=== PATIENT | female | born 1930 | race Caucasian/White ===

== ENCOUNTER 2017-09-21 07:03 | Emergency (ER) | payer MEDICARE, OTHER ==
--- NOTE | 2017-09-21 07:31 | ED Physician Documentation ---
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 denies: Back pain Neurologic: reports: Headache, Head injury. 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 - Present Medications Home Medications: Ambulatory Orders Medication Instructions Recorded Confirmed No Known Home Medications [No 09/21/17 09/21/17 Known Home Medications] - Allergies Allergies/Adverse Reactions: Allergies Allergy/AdvReac Type Severity Reaction Status Date / Time No Known Drug Allergies Allergy Verified 09/21/17 07:16 - Social History Does the pt smoke?: No Smoking Status: Never smoker Does the pt drink ETOH?: No Does the pt have substance abuse?: No - Immunizations Immunizations are current?: No Immunizations: No immun PD ED PE NORMAL - Vitals Vital signs reviewed: Yes - General General: Alert and oriented X 3 - HEENT HEENT: Atraumatic (no visible swelling bruising or lac at site pt indicates), PERRL - Neck Neck: Supple, no meningeal sign - Cardiac Cardiac: RRR - Respiratory Respiratory: No respiratory distress, Clear bilaterally - Abdomen Abdomen: Soft, Non tender - Derm Derm: Other (skin tear L hand) - Extremities Extremities: Other (skin tear dorsum L hand, TTP and bruising dorsum L hand, swelling dorsum L wrist, MSV intact, had pt remove ring) - Neuro Neuro: Alert and oriented X 3, manager of selection and assessment 2-12 intact, No motor deficit, No sensory deficit, Normal speech Eye Opening: Spontaneous Motor: Obeys Commands Verbal: Oriented GCS Score: 15 Results - Vitals Vitals: Vital Signs - 24 hr 09/21/17 07:11 Temperature 36.8 C Heart Rate 74 Respiratory 16 Rate Blood Pressure 141/86 H O2 Saturation 97 Oxygen O2 Source Room air - Rads (name of study) hand wrist Radiology: See rad report (small bony density dorsal to lunate c/w small avulsion) PD MEDICAL DECISION MAKING - ED course ED course: pt received a MSE to the extent that she would agree too she declined CTH and CS - (based on her exam I have a low suspicion for ICH or neck fx - but given her age would have been prudent to rule out subdural 2/2 bridging veins ect, and given distracting wrist injury would have rec CT CS ) she also declined tdap her xrays showed a small avulsion fx opted for velcro splint o allow access for wound care her wounds were clenaed and dressed a velcro wrist splint was applied pt was road tested and ambulatory in the ER (walked from triage to room 1 unassisted) - Sepsis Event Vital Signs: Vital Signs - 24 hr 09/21/17 07:11 Temperature 36.8 C Heart Rate 74 Respiratory 16 Rate Blood Pressure 141/86 H O2 Saturation 97 Oxygen O2 Source Room air Departure - Departure Clinical Impression: Skin tear Fall from slip, trip, or stumble Qualifiers: Encounter type: initial encounter Qualified Code(s): W01.0XXA - Fall on same level from slipping, tripping and stumbling without subsequent striking against object, initial encounter Head injury Qualifiers: Encounter type: initial encounter Qualified Code(s): S09.90XA - Unspecified injury of head, initial encounter Neck sprain Qualifiers: Encounter type: initial encounter Qualified Code(s): S13.9XXA - Sprain of joints and ligaments of unspecified parts of neck, initial encounter Hand contusion Qualifiers: Encounter type: initial encounter Laterality: left Qualified Code(s): S60.222A - Contusion of left hand, initial encounter Wrist fracture Qualifiers: Encounter type: initial encounter Fracture type: closed Laterality: left Qualified Code(s): S62.102A - Fracture of unspecified carpal bone, left wrist, initial encounter for closed fracture Condition: Good Instructions: ED Contusion Hand, ED Head Injury Closed Sleep Mon, ED Sprain Strain Neck, ED Avulsion Dermal, ED Splint Care Velcro, ED Fx Wrist General Follow-Up: Frank Melvin MD [Primary Care Provider] - [facility] [Provider Group] Comments: Your xrays show a small avulsion fracture to the left wrsit Wear the splint at all times except to care for the wound Tylenol available over the counter for pain Ice for 20 minutes at a time and elevation to decrease the swelling Follow up with orthopedics - you need to call to schedule Gently wash the wound and apply antibiotic ointment twice a day until healed See your PMD or return to the ED for any signs of developing infection I recommend a CT scan of your head to rule out any bleeding form the fall and a CT scan of your neck to rule out any bony injuries to the spine - but you declined theses tests for now - please carefully read the head innjury precautions and stay with a responsibel adult who can watch over you for the next 48 hr and return to the ER of worse You also declined a tetanus booster shot - of you change your mind about this, please see your PMD in the next 48-72 hr to get this taken care of
--- NOTE | 2017-09-21 08:20 | XRAY Report ---
Procedure Date: 09/21/2017 Accession Number: [id number] / [id number] Procedure: XR - Hand 3 View LT CPT Code: FULL RESULT: EXAM: LEFT HAND RADIOGRAPHY EXAM DATE: 09/21/2017 07:33 AM. CLINICAL HISTORY: Fall pain and bruise. COMPARISON: None. TECHNIQUE: 3 views. FINDINGS: Bones: Small bony fragment dorsal to the lunate on lateral view. Joints: Osteophyte versus metacarpal carpal joint space. Osteophyte fourth DIP joint. Soft Tissues: soft tissue swelling. IMPRESSION: Small bony fragment dorsal to the lunate could be small avulsion versus loose body RADIA
--- NOTE | 2017-09-21 08:20 | XRAY Report ---
Procedure Date: 09/21/2017 Accession Number: [id number] / [id number] Procedure: XR - Wrist 4 View LT CPT Code: FULL RESULT: EXAM: LEFT WRIST RADIOGRAPHY EXAM DATE: 09/21/2017 07:33 AM. CLINICAL HISTORY: Fall pain and bruise. COMPARISON: None. TECHNIQUE: 4 views. FINDINGS: Bones: Small bony density dorsal to the lunate on lateral view loose body versus avulsion. Joints: Osteophyte, joint space narrowing first metacarpal carpal joint space Soft Tissues: soft tissue swelling. IMPRESSION: Small bony density dorsal to the lunate on lateral view loose body versus avulsion. RADIA
[2017-09-21 08:38] VITALS: BP 156/81
== END 2017-09-21 08:32 | disposition home or self-care (01) ==
LOC: ED 07:03
DX: S62.122A Displaced fracture of lunate [semilunar], left wrist, initial encounter for closed fracture (principal); S09.90XA Unspecified injury of head, initial encounter; S13.9XXA Sprain of joints and ligaments of unspecified parts of neck, initial encounter; S61.412A Laceration without foreign body of left hand, initial encounter; W01.0XXA Fall on same level from slipping, tripping and stumbling without subsequent striking against object, initial encounter
CPT/HCPCS: 70450; 72125; 99283

== ENCOUNTER 2018-12-22 10:34 | Outpatient (CLI) | payer MEDICARE, OTHER ==
[2018-12-22 10:51] LABS: BASOPHILS # (AUTO) 0.1 10^3/uL (0.0-0.1); BASOPHILS % (AUTO) 0.5 %; EOSINOPHILS # (AUTO) 0.3 10^3/uL (0.0-0.7); EOSINOPHILS % (AUTO) 3.3 %; HGB - HEMOGLOBIN 13.2 g/dL (12.0-16.0); LYMPHOCYTES # (AUTO) 2.7 10^3/uL (1.5-3.5); LYMPHOCYTES % (AUTO) 28.6 %; MEAN CORPUSCULAR HEMOGLOBIN 28.1 pg (27.0-31.0); MEAN CORPUSCULAR VOLUME 90.6 fL (81.0-99.0); MEAN PLATELET VOLUME 11.6 fL (7.9-10.8); MONOCYTES # (AUTO) 0.6 10^3/uL (0.0-1.0); MONOCYTES % (AUTO) 6.2 %; NEUTROPHILS # (AUTO) 5.7 10^3/uL (1.5-6.6); PLT - PLATELET COUNT 200 10^3/uL (130-450); RED CELL DISTRIBUTION WIDTH 14.2 % (12.0-15.0); WHITE BLOOD COUNT 9.3 x10^3/uL (4.8-10.8)
[2018-12-22 11:07] LABS: ALBUMIN 3.9 g/dL (3.2-5.5); ALBUMIN/GLOBULIN RATIO 1.2 (1.0-2.2); CALCIUM 11.2 mg/dL (8.5-10.3); TOTAL PROTEIN 7.2 g/dL (6.7-8.2)
[2018-12-22 11:24] LABS: THYROID STIMULATING HORMONE 4.38 uIU/mL (0.34-5.60)
[2018-12-22 11:26] LABS: FREE T4 (FREE THYROXINE) 0.94 ng/dL (0.58-1.64)
== END 2018-12-22 10:35 | disposition home or self-care (01) ==
LOC: LAB 10:34
PROVIDERS: ATTEND Family Medicine
DX: M41.9 Scoliosis, unspecified (principal); R09.89 Other specified symptoms and signs involving the circulatory and respiratory systems; R60.9 Edema, unspecified; I48.91 Unspecified atrial fibrillation
CPT/HCPCS: 36415; 80053; 84439; 84443; 84481; 85025

== ENCOUNTER 2018-12-22 10:43 | Outpatient (CLI) | payer MEDICARE, OTHER ==
--- NOTE | 2018-12-22 11:58 | XRAY Report ---
Reason: KYPHOSCOLIOSIS,DEGENERATIVE, COARSE RESPIRATORY CR Procedure Date: 12/22/2018 Accession Number: [id number] / [id number] Procedure: XR - Chest 2 View X-Ray CPT Code: 93873 FULL RESULT: EXAM: CHEST RADIOGRAPHY EXAM DATE: 12/22/2018 11:22 AM. CLINICAL HISTORY: Kyphoscoliosis, degenerative, coarse respiratory crackles. COMPARISON: None. TECHNIQUE: 2 views. FINDINGS: Lungs/Pleura: There are coarse interstitial lung markings bilaterally left greater than right. No lobar consolidation or overt pulmonary edema. Blunting of costophrenic angles bilaterally suggests small pleural effusions. No pneumothorax. Mediastinum: Heart and mediastinal contours are unremarkable. Other: None. IMPRESSION: Coarse pulmonary markings suggestive of chronic lung disease. Atypical pneumonia would be difficult to exclude in this setting. RADIA
== END 2018-12-22 10:44 | disposition home or self-care (01) ==
LOC: DI 10:43
PROVIDERS: ATTEND Family Medicine
DX: R91.8 Other nonspecific abnormal finding of lung field (principal); M41.9 Scoliosis, unspecified; R09.89 Other specified symptoms and signs involving the circulatory and respiratory systems; R60.9 Edema, unspecified; I48.91 Unspecified atrial fibrillation
CPT/HCPCS: 36415; 71046; 80053; 84439; 84443; 84481; 85025

== ENCOUNTER 2018-12-23 11:26 | Outpatient (CLI) | payer MEDICARE, OTHER | END 2018-12-23 11:27 | disposition home or self-care (01) | LOC: DI 11:26 | PROVIDERS: ATTEND Family Medicine | DX: R09.89 Other specified symptoms and signs involving the circulatory and respiratory systems (principal); R60.9 Edema, unspecified; I48.91 Unspecified atrial fibrillation; I27.20 Pulmonary hypertension, unspecified; I08.1 Rheumatic disorders of both mitral and tricuspid valves | CPT/HCPCS: 93306 ==

== ENCOUNTER 2019-04-30 18:07 | Outpatient (CLI) | payer MEDICARE, OTHER | END 2019-04-30 18:08 | disposition critical access hospital (66) | LOC: EMS 18:07 | PROVIDERS: ATTEND Surgery | DX: R55 Syncope and collapse (principal); R42 Dizziness and giddiness; S09.90XA Unspecified injury of head, initial encounter; W18.11XA Fall from or off toilet without subsequent striking against object, initial encounter; Y92.002 Bathroom of unspecified non-institutional (private) residence as the place of occurrence of the external cause; Z91.81 History of falling | CPT/HCPCS: A0425; A0429 ==

== ENCOUNTER 2019-04-30 18:09 | Inpatient (IN) | payer MEDICARE, OTHER ==
[2019-04-30 18:39] LABS: BILIRUBIN,URINE NEGATIVE (NEGATIVE); GLUCOSE, URINE (UA) NEGATIVE (NEGATIVE); KETONES,URINE (UA) NEGATIVE (NEGATIVE); LEUKOCYTE ESTERASE, URINE LARGE (NEGATIVE); NITRITE,URINE POSITIVE (NEGATIVE); OCCULT BLOOD,URINE LARGE (NEGATIVE); PROTEIN,URINE 100 mg/dL (NEGATIVE); UROBILINOGEN,URINE 0.2 (NORMAL) E.U./dL (NORMAL)
[2019-04-30 18:42] LABS: CLARITY,URINE CLOUDY (CLEAR)
[2019-04-30 18:53] LABS: BACTERIA,URINE Moderate /HPF (None Seen); SQUAMOUS EPITHELIAL CELL,UR RARE Squamous (<= Few); WBC CLUMPS,URINE PRESENT
[2019-04-30] MEDS ORDERED: cefTRIAXone 2 GM in SODIUM CHLORIDE 0.9% MINIBAG 100 ML IV STA (19:00)
[2019-04-30 19:16] LABS: BASOPHILS % (AUTO) 0.3 %; EOSINOPHILS % (AUTO) 0.2 %; HGB - HEMOGLOBIN 13.4 g/dL (12.0-16.0); LYMPHOCYTES # (AUTO) 1.6 10^3/uL (1.5-3.5); LYMPHOCYTES % (AUTO) 13.9 %; MEAN CORPUSCULAR HEMOGLOBIN 28.2 pg (27.0-31.0); MEAN CORPUSCULAR HGB CONC 31.6 g/dL (32.0-36.0); MEAN CORPUSCULAR VOLUME 89.3 fL (81.0-99.0); MEAN PLATELET VOLUME 12.3 fL (7.9-10.8); MONOCYTES # (AUTO) 0.9 10^3/uL (0.0-1.0); MONOCYTES % (AUTO) 7.3 %; NEUTROPHILS # (AUTO) 9.1 10^3/uL (1.5-6.6); NEUTROPHILS % (AUTO) 77.9 %; PLT - PLATELET COUNT 176 10^3/uL (130-450); RED BLOOD COUNT 4.75 10^6/uL (4.20-5.40); WHITE BLOOD COUNT 11.6 x10^3/uL (4.8-10.8)
[2019-04-30 19:20] LABS: INR 1.3 (0.8-1.2); PT - PROTHROMBIN TIME 14.1 secs (9.9-12.6)
--- NOTE | 2019-04-30 19:20 | ED Physician Documentation ---
History of Present Illness - Stated complaint Stated Complaint: GLF - RT CATHOLIC HEMATOMA - Chief complaint Chief Complaint: General - History obtained from History obtained from: Patient - History of Present Illness Timing: Prior to arrival Pain level max: 5 Pain level now: 5 - Additonal information Additional information: 88 year old female presents to the emergency department with multiple falls. A friend called to check on her but she did not answer her phone. Police was notified. She was found on the floor and when EMS arrived, she said that she needed lift assistance to bathroom. When the patient got up to the bathroom, patient fell again. She was placed on full spinal immobilization. Patient was alert to self, place but not time. She thought this year was 2001 and was not sure why she was brought to the emergency department. She reported of low back back. She denies any chest pain, shortness of breath, nausea or vomiting. Patient reported that she was laying on the floor since 7 am this morning. History was limited due to her confusion. Unclear if she takes anti-coagulant. Review of record in 2018 showed that she was not on anti-coagulant. Unclear of patient's past medical history. Review of Systems Constitutional: denies: Fever, Chills Ears: denies: Loss of hearing, Ear pain Nose: denies: Rhinorrhea / runny nose Cardiac: denies: Chest pain / pressure Respiratory: denies: Dyspnea, Cough : reports: Dysuria, Frequency Skin: denies: Rash, Lesions Musculoskeletal: reports: Back pain. denies: Neck pain, Extremity pain, Joint pain Neurologic: reports: Generalized weakness, Confused, Head injury. 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 - Present Medications Home Medications: Ambulatory Orders Medication Instructions Recorded Confirmed No Known Home Medications 09/21/17 09/21/17 - Allergies Allergies/Adverse Reactions: Allergies Allergy/AdvReac Type Severity Reaction Status Date / Time No Known Drug Allergies Allergy Verified 09/21/17 07:16 - Social History Does the pt smoke?: No Smoking Status: Never smoker Does the pt drink ETOH?: No Does the pt have substance abuse?: No - Immunizations Immunizations are current?: No Immunizations: No immun PD ED PE NORMAL - Vitals Vital signs reviewed: Yes - General General: Other (alert and oriented x 2) - HEENT HEENT: PERRL, EOMI, Other (right baptism scalp hematoma. wears glasses) - Neck Neck: Other (c-collar in place) - Cardiac Cardiac: Other (irregularly irregular) - Respiratory Respiratory: No respiratory distress - Abdomen Abdomen: Normal bowel sounds - Back Back: No CVA TTP, Other (mild mid lumbar tenderness to percussion. no step off) - Extremities Extremities: No deformity, No tenderness to palpate - Neuro Neuro: No motor deficit, No sensory deficit Results - Vitals Vitals: Vital Signs - 24 hr 04/30/19 04/30/19 04/30/19 18:20 18:26 21:52 Temperature 37.8 C H 37.8 C H Heart Rate 84 84 58 L Respiratory 18 18 18 Rate Blood Pressure 167/100 H 167/60 H 155/75 H O2 Saturation 99 99 100 Oxygen O2 Source Room air - EKG (time done) 1914 Rate: Rate (enter#), Other Rhythm: Atrial fibrillation [place]: LAD Intervals: RBBB (incomplete) Ischemia: Non specific changes - Labs Labs: Laboratory Tests 04/30/19 04/30/19 04/30/19 18:33 19:10 19:10 WBC 11.6 H RBC 4.75 Hgb 13.4 Hct 42.4 MCV 89.3 MCH 28.2 MCHC 31.6 L RDW 14.0 Plt Count 176 MPV 12.3 H Neut # (Auto) 9.1 H Lymph # (Auto) 1.6 Christian # (Auto) 0.9 Eos # (Auto) 0.0 Baso # (Auto) 0.0 Absolute Nucleated RBC 0.00 Nucleated RBC % 0.0 PT 14.1 H INR 1.3 H Sodium Potassium Chloride Carbon Dioxide Anion Gap BUN Creatinine Estimated GFR (MDRD) Glucose Calcium Magnesium Total Bilirubin AST ALT Alkaline Phosphatase Total Creatine Kinase Troponin I High Sens Total Protein Albumin Globulin Albumin/Globulin Ratio Lipase Urine Color YELLOW Urine Clarity CLOUDY Urine pH 7.0 Ur Specific [place] 1.025 Urine Protein 100 H Urine Glucose (UA) NEGATIVE Urine Ketones NEGATIVE Urine Occult Blood LARGE H Urine Nitrite POSITIVE H Urine Bilirubin NEGATIVE Urine Urobilinogen 0.2 (NORMAL) Ur Leukocyte Esterase LARGE H Urine RBC 11-25 H Urine WBC >25 H Urine WBC Clumps PRESENT Ur Squamous Epith Cells RARE Squamous Urine Bacteria Moderate H Ur Microscopic Review INDICATED Urine Culture Comments INDICATED 04/30/19 04/30/19 04/30/19 19:10 19:10 19:10 WBC RBC Hgb Hct MCV MCH MCHC RDW Plt Count MPV Neut # (Auto) Lymph # (Auto) Christian # (Auto) Eos # (Auto) Baso # (Auto) Absolute Nucleated RBC Nucleated RBC % PT INR Sodium 138 Potassium 4.1 Chloride 103 Carbon Dioxide 24 Anion Gap 11.0 BUN 18 Creatinine 1.0 Estimated GFR (MDRD) 52 L Glucose 113 H Calcium 10.0 Magnesium 1.7 Total Bilirubin 1.8 H AST 22 ALT 12 Alkaline Phosphatase 53 Total Creatine Kinase Troponin I High Sens 56.5 H* Total Protein 7.0 Albumin 3.7 Globulin 3.3 Albumin/Globulin Ratio 1.1 Lipase 24 Urine Color Urine Clarity Urine pH Ur Specific [place] Urine Protein Urine Glucose (UA) Urine Ketones Urine Occult Blood Urine Nitrite Urine Bilirubin Urine Urobilinogen Ur Leukocyte Esterase Urine RBC Urine WBC Urine WBC Clumps Ur Squamous Epith Cells Urine Bacteria Ur Microscopic Review Urine Culture Comments 04/30/19 04/30/19 19:10 20:35 WBC RBC Hgb Hct MCV MCH MCHC RDW Plt Count MPV Neut # (Auto) Lymph # (Auto) Christian # (Auto) Eos # (Auto) Baso # (Auto) Absolute Nucleated RBC Nucleated RBC % PT INR Sodium Potassium Chloride Carbon Dioxide Anion Gap BUN Creatinine Estimated GFR (MDRD) Glucose Calcium Magnesium Total Bilirubin AST ALT Alkaline Phosphatase Total Creatine Kinase 118 Troponin I High Sens 62.9 H* Total Protein Albumin Globulin Albumin/Globulin Ratio Lipase Urine Color Urine Clarity Urine pH Ur Specific [place] Urine Protein Urine Glucose (UA) Urine Ketones Urine Occult Blood Urine Nitrite Urine Bilirubin Urine Urobilinogen Ur Leukocyte Esterase Urine RBC Urine WBC Urine WBC Clumps Ur Squamous Epith Cells Urine Bacteria Ur Microscopic Review Urine Culture Comments PD MEDICAL DECISION MAKING - ED course ED course: 88-year-old female presented to the emergency department for evaluation because of frequent falls, urinary frequency or urgency. Patient report of low back pain. She told me that she has been laying on the floor since this morning because she was unable to get up. She has a right temporal hematoma. She also told me that she falls frequently as well. She lives at home by herself. Her has . Patient was alert to self and place but not time.CT scan of the head did not show intracranial hemorrhage or skull fracture.CT of lumbar spine did not show acute fracture and with Left perinephric stranding and left renal stone. Patient was found to have a urinary tract infection and was treated with IV Rocephin. CT of the abdomen pelvis without contrast was obtained to evaluate for obstructive uropathy. There was no evidence of an obstructive ureteral stone at this time. Patient could have passed a stone recently. Patient wished to go home but patient had fallen multiple times. Her generalized weakness and confusion could be due to her acute pyelonephritis although I was unable to contact any family members or friends to provide additional history. Patient is unsafe to be discharged at this time. EKG showed atrial fibrillation with nonspecific ST changes. Serial troponins were mildly elevated the patient denied any chest pain or shortness of breath. The elevated troponin could be due to demand ischemia from current infection. It is unknown to me whether patient has a history of atrial fibrillation. Clinically, she does not demonstrate evidence of congestive heart failure. Case was discussed with Dr. Tripp, hospitalist. She has accepted the patient for admission. 2030 C-collar was removed after CT cervical spine showed no acute fracture or dislocation and patient was feeling better after c-collar removal. She denies any neck pain. [id number] I attempted to contact Marla Fitch, listed as the emergency contact but number I called said a voicemail said it is no longer a working number. No other emergency contact numbers were listed. Patient lives by herself and is a . Departure - Departure Disposition: [facility] DC/Xfer Clinical Impression: Pyelonephritis, Confusion, Weakness, Atrial fibrillation Condition: Stable Discharge Date/Time: 04/30/19 22:40
[2019-04-30 19:28] LABS: ALBUMIN 3.7 g/dL (3.2-5.5); ALBUMIN/GLOBULIN RATIO 1.1 (1.0-2.2); BILIRUBIN,TOTAL 1.8 mg/dL (0.2-1.0)
--- NOTE | 2019-04-30 20:04 | XRAY Report ---
Reason: chest pain Procedure Date: 04/30/2019 Accession Number: [id number] / [id number] Procedure: XR - Chest 1 View X-Ray CPT Code: 16843 Final Report FULL RESULT: EXAM: CHEST RADIOGRAPHY EXAM DATE: 04/30/2019 07:56 PM. CLINICAL HISTORY: Chest pain. COMPARISON: CHEST 2 VIEW 12/22/2018 11:17 AM CERVICAL SPINE W/O 04/30/2019 7:23 PM. TECHNIQUE: 1 view. FINDINGS: Lungs/Pleura: There is diffuse reticulonodular opacity within the lungs. No definite evidence of acute infiltrate. No effusion. No pneumothorax. Mediastinum: There is cardiomegaly. There is thoracic aortic calcification. Other: None. IMPRESSION: 1. There is cardiomegaly. 2. There is diffuse reticulonodular opacity within the lungs. This is relatively stable and probably represents underlying interstitial lung disease. No clear evidence of acute infiltrate. 3. There is no pneumothorax. RADIA
--- NOTE | 2019-04-30 20:05 | XRAY Report ---
Reason: fall Procedure Date: 04/30/2019 Accession Number: [id number] / [id number] Procedure: XR - Pelvis 1 View CPT Code: Final Report FULL RESULT: EXAM: PELVIS RADIOGRAPHY EXAM DATE: 04/30/2019 07:56 PM. CLINICAL HISTORY: Fall. COMPARISON: LUMBAR SPINE W/O 04/30/2019 7:30 PM. TECHNIQUE: 1 view. FINDINGS: Bones: Normal. No fracture or bone lesion. Joints: The visualized hip, pubis symphysis, and sacroiliac joints are preserved. No subluxation. Soft Tissues: Normal. No soft tissue swelling. IMPRESSION: No evidence of fracture or dislocation. Plain film can be insensitive for detection of hip fracture in elderly patients. If there is concern for occult proximal femur fracture, MRI could be used for further evaluation. RADIA
--- NOTE | 2019-04-30 20:16 | CT Report ---
Reason: fall Procedure Date: 04/30/2019 Accession Number: [id number] / [id number] Procedure: CT - HEAD WO CPT Code: Final Report FULL RESULT: EXAM: CT HEAD EXAM DATE: 04/30/2019 07:42 PM. CLINICAL HISTORY: Fall. COMPARISON: HEAD W/O 10/12/2014 5:21 PM. TECHNIQUE: Multiaxial CT images were obtained from the foramen magnum to the vertex. Reformats: Sagittal and coronal. IV contrast: None. In accordance with CT protocol optimization, one or more of the following dose reduction techniques were utilized for this exam: automated exposure control, adjustment of mA and/or KV based on patient size, or use of iterative reconstructive technique. FINDINGS: Parenchyma: No intraparenchymal hemorrhage. No evidence of mass, midline shift, or CT findings of infarction. Glass-white differentiation is distinct. Decreased attenuation in the deep and periventricular white matter was present on the prior exam and is compatible with chronic microangiopathy. Extraaxial Spaces: Normal for age. No subdural or epidural collections identified. Ventricles: Normal in size and position. Sinuses and Orbits: Imaged paranasal sinuses, orbits, and mastoids show no significant abnormality. Bones: No evidence of fracture or calvarial defect. Other: Small hematomas in the right temporal scalp and along the vertex. IMPRESSION: No acute intracranial abnormality. Scalp hematomas, no skull fractures.. RADIA
--- NOTE | 2019-04-30 20:23 | CT Report ---
Reason: fall Procedure Date: 04/30/2019 Accession Number: [id number] / [id number] Procedure: CT - LUMBAR SPINE WO CPT Code: Final Report FULL RESULT: EXAM: CT LUMBAR SPINE WITHOUT CONTRAST EXAM DATE: 04/30/2019 07:44 PM. CLINICAL HISTORY: Fall. COMPARISONS: None. TECHNIQUE: Thin-section axial images were acquired of the lumbar spine from T12 to S1 without contrast. Post-processing: Coronal and sagittal reformats. Other: None. In accordance with CT protocol optimization, one or more of the following dose reduction techniques were utilized for this exam: automated exposure control, adjustment of mA and/or KV based on patient size, or use of iterative reconstructive technique. FINDINGS: Alignment: Mild dextrocurvature. No significant spondylolisthesis. Bones: Five [id number] lumbar vertebral bodies are present. No acute fractures. Right hemilaminectomy at L3-S1. Moderate to severe multilevel degenerative disk disease. No high-grade spinal canal narrowing. Moderate multilevel spinal canal narrowing from L2-S1 by posterior disk osteophyte complex. Other: Cholelithiasis. 6 mm left renal calculus. There is asymmetric left perinephric stranding and possible hydronephrosis. IMPRESSION: Asymmetric left perinephric stranding and probable hydronephrosis. Distal ureter is not imaged. Correlation with abdomen pelvis CT recommended to exclude distal obstruction. No calculi seen in the proximal to mid ureter. There is a 6 mm nonobstructing left renal calculus. No acute lumbar spine fractures. Cholelithiasis. RADIA
--- NOTE | 2019-04-30 20:25 | CT Report ---
Reason: fall Procedure Date: 04/30/2019 Accession Number: [id number] / [id number] Procedure: CT - CERVICAL SPINE WO CPT Code: Final Report FULL RESULT: EXAM: CT CERVICAL SPINE WITHOUT CONTRAST DATE: 04/30/2019 07:43 PM. HISTORY: Fall. COMPARISONS: HEAD W/O 10/12/2014 5:21 PM. TECHNIQUE: Thin-section axial images were acquired of the cervical spine without contrast. Post-processing: Coronal and sagittal reformats. Other: None. In accordance with CT protocol optimization, one or more of the following dose reduction techniques were utilized for this exam: automated exposure control, adjustment of mA and/or KV based on patient size, or use of iterative reconstructive technique. FINDINGS: Alignment: No scoliosis or spondylolisthesis. Bones: No acute fractures. Interspace Levels/Facets: C1-C2: Mild arthropathy. C2-C3: Unremarkable. C3-C4: Focal central disk protrusion measuring up to 5 mm, unknown age. Likely indenting the anterior thecal sac. No neural foraminal stenosis. Mild to moderate bilateral facet disease. C4-C5: Mild disk height loss. Moderate to severe right neural foraminal stenosis and mild to moderate left neural foraminal stenosis. Facet arthropathy. C5-C6: Moderate disk height loss. Posterior disk osteophyte complex. Minimal central canal stenosis. Moderate to severe bilateral neural foraminal stenosis, left more than right, with facet disease. C6-C7: Mild central focal disk protrusion. C7-T1: Unremarkable. Musculature: Mild fatty atrophy. Other: No prevertebral soft tissue swelling. There is some dependent mucus or secretions in the oropharynx, hypopharynx, and in the vallecula. Chronic appearing reticulation in the apices. IMPRESSION: 1. No fracture or subluxation of the cervical spine. 2. Focal central disk protrusions at C3-C4 and C6-C7. 3. Dependent mucus or secretions in the airway as above. RADIA
--- NOTE | 2019-04-30 21:28 | CT Report ---
Reason: ?obstructive stone vs pyelonephritis Procedure Date: 04/30/2019 Accession Number: [id number] / [id number] Procedure: CT - Abdomen/Pelvis WO CPT Code: Final Report FULL RESULT: EXAM: CT ABDOMEN AND PELVIS (CT KUB) EXAM DATE: 04/30/2019 09:06 PM. CLINICAL HISTORY: Fall tonight. Frequent troublesome urination. Back pain. Question obstructive stone versus pyelonephritis. COMPARISONS: CHEST 1 VIEW 04/30/2019 7:23 PM. CHEST 2 VIEW 12/22/2018 11:17 AM. TECHNIQUE: Routine axial helical CT imaging was performed through the abdomen and pelvis without IV contrast. Reconstructions: Coronal and sagittal. In accordance with CT protocol optimization, one or more of the following dose reduction techniques were utilized for this exam: automated exposure control, adjustment of mA and/or KV based on patient size, or use of iterative reconstructive technique. FINDINGS: Lung bases: Moderate bilateral lower lobe reticular and alveolar opacities. Honeycombing fibrosis could be present in the left lower lobe. Bilateral pulmonary edema and/or pneumonia can be present superimposed on chronic lung disease. Mild reticular opacities right middle lobe. Liver: Unremarkable. Gallbladder: Multiple moderate-sized gallstones. Bile ducts: Unremarkable. Pancreas: Moderate pancreatic atrophy. Spleen: Unremarkable. Adrenals: Unremarkable. Kidneys: Mild left hydronephrosis with adjacent stranding and perinephric stranding. Left proximal hydroureter with adjacent stranding. A couple of left lower pole renal calculi, largest measuring 4 mm, nonobstructing. Right kidney appears unremarkable. Bowel: Moderate to severe sigmoid diverticulosis. Mild descending colon diverticulosis. Normal appendix. No dilated bowel loops are seen. Pelvis: Bladder wall thickening and adjacent stranding concerning for acute cystitis. No bladder calculi. Status post hysterectomy. Vasculature: No acute findings. Bones: No acute bone findings. Metallic surgical clips in the left groin. IMPRESSION: 1. Moderate bilateral lower lobe reticular and alveolar opacities. Honeycombing fibrosis could be present in the left lower lobe. Bilateral pulmonary edema and/or pneumonia can be present superimposed on chronic lung disease. Mild reticular opacities right middle lobe. 2. Cholelithiasis. 3. Mild left hydronephrosis with adjacent stranding and perinephric stranding. Left proximal hydroureter with adjacent stranding. A couple of left lower pole renal calculi, largest measuring 4 mm, nonobstructing. Acute left pyelonephritis could be present. There could be a recently passed calculus. 4. Acute cystitis. 5. Left-sided colonic diverticulosis. 6. See above. RADIA
[2019-04-30] MEDS ORDERED: SODIUM CHLORIDE FLUSH 0.9% 10 ML SYRINGE IVP PRN (22:07)
[2019-04-30] MEDS ORDERED: ONDANSETRON 4 MG/2 ML VIAL IVP PRN (22:07)
[2019-04-30] MEDS ORDERED: ONDANSETRON ODT 4 MG TABLET TL PRN (22:07)
[2019-04-30] MEDS ORDERED: ACETAMINOPHEN 325 MG TABLET PO PRN (22:07)
[2019-04-30] MEDS ORDERED: oxyCODONE 5 MG TABLET PO PRN (22:07)
[2019-04-30] MEDS: LACTATED RINGERS 1,000 ML IV SCH (23:03)
--- NOTE | 2019-04-30 23:32 | HISTORY & PHYSICAL EXAMINATION ---
Chief Complaint - Chief Complaint Chief Complaint: Found down on floor in her home by EMS, and fell again when put on toilet History of Present Illness - Admitted From Admitted From:: Home/ER - History Obtained From Records Reviewed: [facility] and centricity History obtained from: Emergency room physician and [facility] Exam Limitations: Patient has mild to moderate confusion with memory loss - History of Present Illness HPI Comment/Other: She is an 88-year-old female who is a sketchy historian because of lack of memory and confusion. History is obtained primarily from the medical record and the ER physician. Her has been recently and she is now living alone. At least that is what she told EMS and the emergency room physician. But in reviewing the medical record her has been since approximately 2004. A friend called to check up on her but received no phone call so she called the police and the police sent a safety check. She was found down on her floor when EMS arrived. She thinks she had been laying on the floor since 7 AM. She told them that she needed lift assistance to the bathroom and when she got up to go to the bathroom she fell again. She was placed in full spinal immobilization and brought to the emergency room. She was complaining of low back pain, and thought it was the year 2001. She was evaluated by Dr. Corral. She was noted to be in atrial fibrillation, blood pressure 167/100. 99% saturation on room air. Respirations 18 and temperature 37.8. Heart rate was 84. He found her to be alert and oriented x2. She had a right jew scalp hematoma and was wearing glasses with c-collar in place. She had an irregularly irregular heartbeat. Mild mid lumbar tenderness to percussion but no step-off. No motor or sensory deficit. White cell count was 11.6 thousand. INR was 1.3. Electrolytes showed a magnesium of 1.7, troponin 56.5, CPK 118, and urinalysis had proteinuria, a large amount of occult blood, positive nitrites, positive leukocyte esterase, hematuria, pyuria, moderate bacteria, and rare squamous cells. Abdomen/pelvis CT had moderate bilateral lower lobe reticular and alveolar opacities compatible with her history of pulmonary fibrosis and pulmonary hypertension. She had asymptomatic cholelithiasis. Mild left hydronephrosis with adjacent stranding and perinephric stranding. Left proximal hydroureter with adjacent stranding. A couple of left lower pole renal calculi that were nonobstructing. She was felt to have possible acute pyelonephritis. As well as a possibly passed calculus. I did asked Dr. Corral to contact family to make sure they were amenable to her being admitted to this facility. Her troponins are concerning and I wanted to make sure they did not want full cardiology intervention and evaluation. [facility], there is no one available in the emergency contact list. The patient could not tell us who to contact. She is now admitted for pyelonephritis. History - Past Medical History Cardiovascular: reports: Hypertension, Atrial fibrillation (Found November 2018 when she presented as dizziness, falls, leg edema. EKG and echocardiogram recommended but she declined any additional treatment. She changed her mind a month later and allowed her PCP to do an echo and a chest x-ray. December 2018 echocardiogram shows normal LV cavity size with mild concentric left ventricular hypertrophy. Ejection fraction 60 to 65%. No regional wall motion abnormalities. Severe biatrial dilation. Mild to moderate mitral regurgitation and mild tricuspid regurgitation. Severe pulmonary hypertension with estimated RVSP 70 mmHg and RA pressure of 15 mmHg.Septal dropout present and suggestive of an ASD. She declined treatment of this. ) Respiratory: reports: Other (Pulmonary hypertension on echocardiogram December 2018. Chest x-ray done at that time shows coarse pulmonary markings suggestive of chronic lung disease.) Neuro: reports: Other ("Funny feeling in her ears, then falls where she gets back up. Seen by PCP for this November 2018. Has had 2-3 episodes of "wanting to fall backwards" and has fallen in her home between December and now.) HISTORICAL INTERPRETER: reports: Other (-0-3-0 with 3 abortions) Musculoskeletal: reports: Osteoporosis, Scoliosis (With kyphosis) MRSA Hx?: No - Past Surgical History Ortho: reports: Spine surgery (January 2012: Right-sided foraminotomy and laminectomy L5-S1, L2-3, L3-4, L4-5) /HISTORICAL INTERPRETER: reports: Hysterectomy - Family & Social History Family History Comment/Other: Mother when the patient was 4 and the patient was put in an orphanage. Father had history of depression. No siblings known. No children Living arrangement: At home Living Situation: Alone Social History Notes: She never smoked. Rarely drank alcohol. Mother when she was 4 years old. She did have a younger sister. They were both placed in an orphanage until her father remarried. Her father had a history of depression and it was an unhappy childhood. The patient an [place] soldier who brought her to the [place]. She later him when he did not show any indication that he wanted to work hard. She herself worked for [employer]. She remarried another Lebanese and they were for 45 years. She is more interested in animal rights then in human rights. She is a vegetarian because she does not believe in animals being killed to be service food.Her main concern is her cats at home. She is adamant that she will leave tomorrow because there is no one to take care of them. When I asked who speaks to her when she cannot speak for herself, she states that she has a stepdaughter who lives in [facility].She cannot remember her address or phone number and does not have them on her. - Substance History Use: Uses substance without health or social issues: NONE Meds/Allgy - Home Medications Home Medications: Ambulatory Orders Medication Instructions Recorded Confirmed No Known Home Medications 09/21/17 09/21/17 - Allergies Allergies/Adverse Reactions: Allergies Allergy/AdvReac Type Severity Reaction Status Date / Time No Known Drug Allergies Allergy Verified 09/21/17 07:16 Review of Systems - Constitutional Constitutional: reports: Fatigue, Weight loss (She was 123 pounds in November and is now 114 pounds today), Other (She is very vague about what happened today. She says that she falls on a daily basis, usually in her butt and quickly gets up. For some reason, today was different. She could not get up off the floor this morning.). denies: Fever, Chills, Malaise - Eyes Eyes: reports: Other (Losing her vision as she is gotten older but does not wear glasses) - Ears, Nose & Throat Ears, Nose & Throat: reports: Dental decay (Partial loss of teeth) - Cardiovascular Cariovascular: reports: Irregular heart rate, Edema, Lightheadedness, Exertional dyspnea, Decr. exercise tolerance - Respiratory Respiratory: reports: SOB at rest, SOB with exertion. denies: Cough, Sputum pr oduction, Wheezing - Gastrointestinal Gastrointestinal: denies: Abdominal pain, Abdominal distention, Constipation, Diarrhea, Rectal bleeding - Genitourinary Genitourinary: reports: Incontinence, Flank pain (But she says she feels this is her usual back pain and not new). denies: Dysuria, Frequency, Urgency - Musculoskeletal Musculoskeletal: reports: Muscle aches, Joint pain - Integumentary Integumentary: denies: Rash, Pruritis, Lesions, Dryness - Neurological Neurological: reports: General weakness, Dizziness, Incoordination. denies: Focal weakness, Headache - Psychiatric Psychiatric: denies: Depression, Anxiety, Suicidal - Endocrine Endocrine: denies: Polyuria, Polydypsia, Polyphagia - Hematologic/Lymphatic Hematologic/Lymphatic: denies: Anemia, Bruising Prior Level of Functionality: She regards her self is independent in her home. She does not have any children, and really denies having close friends. She stoutly maintains that she is independent with regards to cooking for herself, paying her own bills. She drives a car. Will drive to [place] to buy groceries, etc. She does not have any durable medical equipment in her home. Exam - Vital Signs Reviewed Vital Signs: Yes Vital Signs: Vital Signs x48h Temp Pulse Pulse Resp BP BP Pulse Ox 04/30/19 22:54 36.5 C 69 18 148/65 H 98 04/30/19 21:52 58 L 18 155/75 H 100 04/30/19 18:26 37.8 C H 84 18 167/60 H 99 04/30/19 18:20 37.8 C H 84 18 167/100 H 99 - Physical Exam General Appearance: positive: No acute distress, Alert, Other (Very tired, really wants to go to sleep since she usually sleeps between 7 PM and 7 AM after an Advil PM.Appears to be a very cachectic 5 foot 5 inch female who weighs 114 pounds.) Eyes Bilateral: positive: PERRL, EOMI ENT: positive: Dry mucous membranes, Other (Right temporal and scalp hematoma) Neck: positive: No JVD. negative: Stiff neck, Carotid bruit Respiratory: positive: Chest non-tender, No respiratory distress, Rales (Bilateral, mid to upper lobes). negative: Wheezes, Rhonchi Cardiovascular: positive: Irregularly irregular, Systolic murmur, Diastolic murmur. negative: Gallop/S4, Friction rub Abdomen: positive: Non-tender, No organomegaly, Nml bowel sounds, No distention, Other (Both flanks ache but there is no real flank tenderness) Skin: positive: Warm, Dry Extremities: positive: Non-tender, Full ROM, Pedal edema Neurologic/Psychiatric: positive: CN's nml (2-12), Motor nml, Disoriented to time, Weakness (Generalized) Conclusion/Plan - Problem List (1) Metabolic encephalopathy Conclusion/Plan: Versus moderate cognitive deficit of aging. In reviewing her medical records from her primary care provider, there is no note of cognitive deficits. As such, I am wondering if she is slightly confused because of her current illness, dehydration. Plan: Inpatient admission. However the patient is stating that she will leave tomorrow morning to take care of her cats. Treat underlying cause of her encephalopathy which is probably #2 and #3 (2) Pyelonephritis Conclusion/Plan: Started on empiric antibiotic therapy per source. She is received 1 g of Rocephin in the emergency room. Plan: Adjust antibiotics on the basis of culture and sensitivity identification Blood cultures have been done in the emergency room (3) Chronic atrial fibrillation Conclusion/Plan: Patient has valvular heart disease as well as ASD. I reviewed her medical records from her primary care provider office. She is still maintaining that she does not want anticoagulation (which is probably a good idea in a lady who falls all the time) nor does she want rate control. Will assess rate with telemetry monitoring. (4) Fall from slip, trip, or stumble Conclusion/Plan: Apparently she is falling on a daily basis. She usually does not hurt herself. Plan: Physical therapy evaluation for gait ataxia Telemetry monitoring to see how fast her heart rate gets in case it is from A. fib Qualifiers: Encounter type: initial encounter Qualified Code(s): W01.0XXA - Fall on same level from slipping, tripping and stumbling without subsequent striking against object, initial encounter (5) Hematoma of right parietal scalp Conclusion/Plan: At this time observation. Wound already treated in emergency room. Qualifiers: Encounter type: initial encounter Qualified Code(s): S00.03XA - Contusion of scalp, initial encounter (6) Risk-prone health behavior Conclusion/Plan: I will have social work track down her power of post tensioning ironworker which may be her stepdaughter. I have asked the patient to consider in-home private duty hire to help her. She feels that she is healthy, and will live a much longer life. Is not recognizing her functional decline or how risky her falls are. (7) Do not resuscitate Conclusion/Plan: In keeping with her desire not to receive cardiac medications, or procedures, she wishes to be a DO NOT RESUSCITATE. - Lab Results Lab results reviewed: Yes Fish Bones: 04/30/19 19:10 04/30/19 19:10 - Diagnostic Imaging Results Diagnostic Imaging Results: positive: Final report reviewed Diagnostic Imaging Results Comments: 1. CT of head. Small hematomas in the right temporal scalp and along the vertex. No acute intracranial abnormality. No skull fractures. 2. Cervical spine CT with no fracture or subluxation of C-spine. Focal central disc protrusion seen. 3. Chest x-ray with cardiomegaly, diffuse reticular nodular opacity within the lungs. Relatively stable and represents underlying interstitial lung disease unchanged from December 22, 2018. 4. Lumbar spine CT with asymmetric left perinephric stranding and probable hydronephrosis. Correlation with abdominal pelvis CT recommended. No acute lumbar spine fractures. 5. Pelvis radiography without evidence of fracture or dislocation. 6. Abdomen pelvis CT with moderate bilateral lower lobe reticular and alveolar opacities. Honeycombing fibrosis left lower lobe. Bilateral pulmonary edema and/or pneumonia superimposed on chronic lung disease. Mild reticular opacities right middle lobe. Multiple moderate size gallstones. Moderate pancreatic atrophy. Mild left hydronephrosis with adjacent stranding and perinephric stranding. Left proximal hydroureter with adjacent stranding. A couple of left lower pole calculi. Moderate to severe sigmoid diverticulosis. Mild descending colon diverticulosis. Bladder wall thickening and adjacent stranding concerning for acute cystitis. Status post hysterectomy. - EKG Results EKG Interpreted Independently: No EKG Comparison: Unchanged from prior EKG EKG Findings: Atrial fibrillation with incomplete right bundle branch block, abnormal repolarization, prolonged QT.
[2019-05-01] MEDS: SODIUM CHLORIDE FLUSH 0.9% 10 ML SYRINGE IVP SCH ×3 (00:21→17:41)
[2019-05-01] MEDS ORDERED: FUROSEMIDE 20 MG/2 ML VIAL IVP STA (00:25)
[2019-05-01 05:30] LABS: BASOPHILS # (AUTO) 0.1 10^3/uL (0.0-0.1); BASOPHILS % (AUTO) 0.4 %; EOSINOPHILS % (AUTO) 0.1 %; HGB - HEMOGLOBIN 13.3 g/dL (12.0-16.0); LYMPHOCYTES # (AUTO) 1.2 10^3/uL (1.5-3.5); LYMPHOCYTES % (AUTO) 8.8 %; MEAN CORPUSCULAR HEMOGLOBIN 29.5 pg (27.0-31.0); MEAN CORPUSCULAR HGB CONC 32.5 g/dL (32.0-36.0); MEAN CORPUSCULAR VOLUME 90.7 fL (81.0-99.0); MEAN PLATELET VOLUME 12.8 fL (7.9-10.8); MONOCYTES # (AUTO) 0.9 10^3/uL (0.0-1.0); MONOCYTES % (AUTO) 6.8 %; NEUTROPHILS # (AUTO) 11.2 10^3/uL (1.5-6.6); NEUTROPHILS % (AUTO) 83.5 %; PLT - PLATELET COUNT 170 10^3/uL (130-450); RED BLOOD COUNT 4.51 10^6/uL (4.20-5.40); RED CELL DISTRIBUTION WIDTH 13.9 % (12.0-15.0); WHITE BLOOD COUNT 13.4 x10^3/uL (4.8-10.8)
[2019-05-01 05:40] LABS: CALCIUM 9.8 mg/dL (8.5-10.3); CREATININE 0.9 mg/dL (0.4-1.0)
--- NOTE | 2019-05-01 07:23 | PROVIDER PROGRESS NOTE ---
Subjective - Prog Note Date Prog Note Date: 05/01/19 - Subjective Subjective: She would like to go home today. She reports no chest pain or dyspnea. She believes she has been in the hospital for 4 to 5 days now. She knows she is in the hospital because she fell at home.She does complain of some urgency Current Medications - Current Medications Current Medications: Active Medications Acetaminophen (Tylenol) 650 mg PO Q4HR PRN PRN Reason: Pain 1 to 4 Ceftriaxone Sodium 1 gm/ (Sodium Chloride) 100 mls @ 200 mls/hr IV DAILY [facility] Lactated Ringer's (Lr) 1,000 mls @ 100 mls/hr IV .Q10H [facility] Stop: 05/01/19 18:59 Last Admin: 04/30/19 23:03 Dose: 100 mls/hr Ondansetron HCl (Zofran Inj) 4 mg IVP Q6HR PRN PRN Reason: Nausea / Vomiting Ondansetron HCl (Zofran Odt) 4 mg TL Q6HR PRN PRN Reason: Nausea / Vomiting Oxycodone HCl (Roxicodone) 5 mg PO Q4HR PRN PRN Reason: Pain 5 to 7 Last Admin: 05/01/19 02:35 Dose: 5 mg Sodium Chloride (Normal Saline Flush 0.9%) 10 ml IVP PRN PRN PRN Reason: NEEDED PER PROVIDER ORDERS Last Admin: 04/30/19 23:04 Dose: 10 ml Sodium Chloride (Normal Saline Flush 0.9%) 10 ml IVP 0100,0900,1700 [facility] Last Admin: 05/01/19 00:21 Dose: Not Given No Known Home Medications 09/21/17 Objective - Vital Signs/Intake & Output Reviewed Vital Signs: Yes Vital Signs: Vital Signs x48h Temp Pulse Pulse Resp BP Pulse Ox 05/01/19 06:13 37 C 72 16 97 05/01/19 05:20 37.0 C 72 16 135/64 H 97 Intake & Output: Intake & Output 04/28/19 04/29/19 04/30/19 05/01/19 23:59 23:59 23:59 23:59 Intake Total 100 623 Output Total 50 600 Balance 50 23 - Objective General Appearance: positive: No acute distress, Alert Eyes Bilateral: positive: Normal inspection, Conjunctivae nml ENT: positive: ENT inspection nml, Dry mucous membranes Neck: positive: Nml inspection Respiratory: positive: No respiratory distress. negative: Wheezes, Rales, Rhonc hi Cardiovascular: positive: No murmur, Irregularly irregular. negative: T achycardia, Bradycardia, Systolic murmur, Diastolic murmur Abdomen: positive: Non-tender, No distention. negative: Tenderness Skin: positive: Warm, Dry, Other (There is an ecchymotic area approximately 5 x 3 cm over the right cheek.) Extremities: positive: Full ROM, No pedal edema Neurologic/Psychiatric: positive: Disoriented to time. negative: Disoriented to person (No she is in the hospital and why she is here. She knows it is 2019 but she cannot recall the month.), Disoriented to place - Lab Results Fish Bones: 05/01/19 04:40 05/01/19 04:40 Other Labs: Lab Results x24hrs 05/01/19 05/01/19 05/01/19 Range/Units 04:40 04:40 04:40 WBC 13.4 H (4.8-10.8) x10^3/uL RBC 4.51 (4.20-5.40) 10^6/uL Hgb 13.3 (12.0-16.0) g/dL Hct 40.9 (37.0-47.0) % MCV 90.7 (81.0-99.0) fL MCH 29.5 (27.0-31.0) pg MCHC 32.5 (32.0-36.0) g/dL RDW 13.9 (12.0-15.0) % Plt Count 170 (130-450) 10^3/uL MPV 12.8 H (7.9-10.8) fL Neut # (Auto) 11.2 H (1.5-6.6) 10^3/uL Lymph # (Auto) 1.2 L (1.5-3.5) 10^3/uL [place] # (Auto) 0.9 (0.0-1.0) 10^3/uL Eos # (Auto) 0.0 (0.0-0.7) 10^3/uL Baso # (Auto) 0.1 (0.0-0.1) 10^3/uL Absolute Nucleated RBC 0.00 x10^3/uL Nucleated RBC % 0.0 /100WBC PT (9.9-12.6) secs INR (0.8-1.2) Sodium 138 (135-145) mmol/L Potassium 3.8 (3.5-5.0) mmol/L Chloride 104 (101-111) mmol/L Carbon Dioxide 25 (21-32) mmol/L Anion Gap 9.0 (6-13) BUN 17 (6-20) mg/dL Creatinine 0.9 (0.4-1.0) mg/dL Estimated GFR (MDRD) 59 L (>89) Glucose 105 H (70-100) mg/dL Calcium 9.8 (8.5-10.3) mg/dL Magnesium (1.7-2.8) mg/dL Total Bilirubin (0.2-1.0) mg/dL AST (10-42) IU/L ALT (10-60) IU/L Alkaline Phosphatase (42-121) IU/L Total Creatine Kinase (22-269) IU/L Troponin I High Sens 65.5 H* (2.3-14.8) ng/L Total Protein (6.7-8.2) g/dL Albumin (3.2-5.5) g/dL Globulin (2.1-4.2) g/dL Albumin/Globulin Ratio (1.0-2.2) Lipase (22-51) U/L Urine Color Urine Clarity (CLEAR) Urine pH (5.0-7.5) PH Ur Specific [place] (1.002-1.030) Urine Protein (NEGATIVE) mg/dL Urine Glucose (UA) (NEGATIVE) mg/dL Urine Ketones (NEGATIVE) mg/dL Urine Occult Blood (NEGATIVE) Urine Nitrite (NEGATIVE) Urine Bilirubin (NEGATIVE) Urine Urobilinogen (NORMAL) E.U./dL Ur Leukocyte Esterase (NEGATIVE) Urine RBC (0-5) /HPF Urine WBC (0-5) /HPF Urine WBC Clumps Ur Squamous Epith Cells (<= Few) Urine Bacteria (None Seen) /HPF Ur Microscopic Review Urine Culture Comments 04/30/19 04/30/19 04/30/19 Range/Units 20:35 19:10 19:10 WBC (4.8-10.8) x10^3/uL RBC (4.20-5.40) 10^6/uL Hgb (12.0-16.0) g/dL Hct (37.0-47.0) % MCV (81.0-99.0) fL MCH (27.0-31.0) pg MCHC (32.0-36.0) g/dL RDW (12.0-15.0) % Plt Count (130-450) 10^3/uL MPV (7.9-10.8) fL Neut # (Auto) (1.5-6.6) 10^3/uL Lymph # (Auto) (1.5-3.5) 10^3/uL [place] # (Auto) (0.0-1.0) 10^3/uL Eos # (Auto) (0.0-0.7) 10^3/uL Baso # (Auto) (0.0-0.1) 10^3/uL Absolute Nucleated RBC x10^3/uL Nucleated RBC % /100WBC PT (9.9-12.6) secs INR (0.8-1.2) Sodium (135-145) mmol/L Potassium (3.5-5.0) mmol/L Chloride (101-111) mmol/L Carbon Dioxide (21-32) mmol/L Anion Gap (6-13) BUN (6-20) mg/dL Creatinine (0.4-1.0) mg/dL Estimated GFR (MDRD) (>89) Glucose (70-100) mg/dL Calcium (8.5-10.3) mg/dL Magnesium 1.7 (1.7-2.8) mg/dL Total Bilirubin (0.2-1.0) mg/dL AST (10-42) IU/L ALT (10-60) IU/L Alkaline Phosphatase (42-121) IU/L Total Creatine Kinase 118 (22-269) IU/L Troponin I High Sens 62.9 H* (2.3-14.8) ng/L Total Protein (6.7-8.2) g/dL Albumin (3.2-5.5) g/dL Globulin (2.1-4.2) g/dL Albumin/Globulin Ratio (1.0-2.2) Lipase (22-51) U/L Urine Color Urine Clarity (CLEAR) Urine pH (5.0-7.5) PH Ur Specific [place] (1.002-1.030) Urine Protein (NEGATIVE) mg/dL Urine Glucose (UA) (NEGATIVE) mg/dL Urine Ketones (NEGATIVE) mg/dL Urine Occult Blood (NEGATIVE) Urine Nitrite (NEGATIVE) Urine Bilirubin (NEGATIVE) Urine Urobilinogen (NORMAL) E.U./dL Ur Leukocyte Esterase (NEGATIVE) Urine RBC (0-5) /HPF Urine WBC (0-5) /HPF Urine WBC Clumps Ur Squamous Epith Cells (<= Few) Urine Bacteria (None Seen) /HPF Ur Microscopic Review Urine Culture Comments 04/30/19 04/30/19 04/30/19 Range/Units 19:10 19:10 19:10 WBC (4.8-10.8) x10^3/uL RBC (4.20-5.40) 10^6/uL Hgb (12.0-16.0) g/dL Hct (37.0-47.0) % MCV (81.0-99.0) fL MCH (27.0-31.0) pg MCHC (32.0-36.0) g/dL RDW (12.0-15.0) % Plt Count (130-450) 10^3/uL MPV (7.9-10.8) fL Neut # (Auto) (1.5-6.6) 10^3/uL Lymph # (Auto) (1.5-3.5) 10^3/uL [place] # (Auto) (0.0-1.0) 10^3/uL Eos # (Auto) (0.0-0.7) 10^3/uL Baso # (Auto) (0.0-0.1) 10^3/uL Absolute Nucleated RBC x10^3/uL Nucleated RBC % /100WBC PT 14.1 H (9.9-12.6) secs INR 1.3 H (0.8-1.2) Sodium 138 (135-145) mmol/L Potassium 4.1 (3.5-5.0) mmol/L Chloride 103 (101-111) mmol/L Carbon Dioxide 24 (21-32) mmol/L Anion Gap 11.0 (6-13) BUN 18 (6-20) mg/dL Creatinine 1.0 (0.4-1.0) mg/dL Estimated GFR (MDRD) 52 L (>89) Glucose 113 H (70-100) mg/dL Calcium 10.0 (8.5-10.3) mg/dL Magnesium (1.7-2.8) mg/dL Total Bilirubin 1.8 H (0.2-1.0) mg/dL AST 22 (10-42) IU/L ALT 12 (10-60) IU/L Alkaline Phosphatase 53 (42-121) IU/L Total Creatine Kinase (22-269) IU/L Troponin I High Sens 56.5 H* (2.3-14.8) ng/L Total Protein 7.0 (6.7-8.2) g/dL Albumin 3.7 (3.2-5.5) g/dL Globulin 3.3 (2.1-4.2) g/dL Albumin/Globulin Ratio 1.1 (1.0-2.2) Lipase 24 (22-51) U/L Urine Color Urine Clarity (CLEAR) Urine pH (5.0-7.5) PH Ur Specific [place] (1.002-1.030) Urine Protein (NEGATIVE) mg/dL Urine Glucose (UA) (NEGATIVE) mg/dL Urine Ketones (NEGATIVE) mg/dL Urine Occult Blood (NEGATIVE) Urine Nitrite (NEGATIVE) Urine Bilirubin (NEGATIVE) Urine Urobilinogen (NORMAL) E.U./dL Ur Leukocyte Esterase (NEGATIVE) Urine RBC (0-5) /HPF Urine WBC (0-5) /HPF Urine WBC Clumps Ur Squamous Epith Cells (<= Few) Urine Bacteria (None Seen) /HPF Ur Microscopic Review Urine Culture Comments 04/30/19 04/30/19 Range/Units 19:10 18:33 WBC 11.6 H (4.8-10.8) x10^3/uL RBC 4.75 (4.20-5.40) 10^6/uL Hgb 13.4 (12.0-16.0) g/dL Hct 42.4 (37.0-47.0) % MCV 89.3 (81.0-99.0) fL MCH 28.2 (27.0-31.0) pg MCHC 31.6 L (32.0-36.0) g/dL RDW 14.0 (12.0-15.0) % Plt Count 176 (130-450) 10^3/uL MPV 12.3 H (7.9-10.8) fL Neut # (Auto) 9.1 H (1.5-6.6) 10^3/uL Lymph # (Auto) 1.6 (1.5-3.5) 10^3/uL [place] # (Auto) 0.9 (0.0-1.0) 10^3/uL Eos # (Auto) 0.0 (0.0-0.7) 10^3/uL Baso # (Auto) 0.0 (0.0-0.1) 10^3/uL Absolute Nucleated RBC 0.00 x10^3/uL Nucleated RBC % 0.0 /100WBC PT (9.9-12.6) secs INR (0.8-1.2) Sodium (135-145) mmol/L Potassium (3.5-5.0) mmol/L Chloride (101-111) mmol/L Carbon Dioxide (21-32) mmol/L Anion Gap (6-13) BUN (6-20) mg/dL Creatinine (0.4-1.0) mg/dL Estimated GFR (MDRD) (>89) Glucose (70-100) mg/dL Calcium (8.5-10.3) mg/dL Magnesium (1.7-2.8) mg/dL Total Bilirubin (0.2-1.0) mg/dL AST (10-42) IU/L ALT (10-60) IU/L Alkaline Phosphatase (42-121) IU/L Total Creatine Kinase (22-269) IU/L Troponin I High Sens (2.3-14.8) ng/L Total Protein (6.7-8.2) g/dL Albumin (3.2-5.5) g/dL Globulin (2.1-4.2) g/dL Albumin/Globulin Ratio (1.0-2.2) Lipase (22-51) U/L Urine Color YELLOW Urine Clarity CLOUDY (CLEAR) Urine pH 7.0 (5.0-7.5) PH Ur Specific [place] 1.025 (1.002-1.030) Urine Protein 100 H (NEGATIVE) mg/dL Urine Glucose (UA) NEGATIVE (NEGATIVE) mg/dL Urine Ketones NEGATIVE (NEGATIVE) mg/dL Urine Occult Blood LARGE H (NEGATIVE) Urine Nitrite POSITIVE H (NEGATIVE) Urine Bilirubin NEGATIVE (NEGATIVE) Urine Urobilinogen 0.2 (NORMAL) (NORMAL) E.U./dL Ur Leukocyte Esterase LARGE H (NEGATIVE) Urine RBC 11-25 H (0-5) /HPF Urine WBC >25 H (0-5) /HPF Urine WBC Clumps PRESENT Ur Squamous Epith Cells RARE Squamous (<= Few) Urine Bacteria Moderate H (None Seen) /HPF Ur Microscopic Review INDICATED Urine Culture Comments INDICATED ABX Reporting Has patient been on IV antibiotics over the past 48 hours?: Yes Assessment/Plan - Problem List (1) Metabolic encephalopathy Impression: Suspect this is multifactorial and secondary to active infection as well as dehydration. She was delirious overnight but she is now oriented to self and location and she knows why she is in the hospital. CT the head did not show any acute abnormalities. We will continue to hydrate her with IV fluids and c ontinue IV antibiotics for treatment of the pyelonephritis. Delirium precautions. Avoid benzodiazepines. (2) Pyelonephritis Impression: Does not quite meet sepsis criteria. Her white count is increased today to 13.4 and she does have a left shift. She has not had any fevers but her temperatures have been borderline febrile. Her urinalysis is suggestive of infection. Urine culture is pending. Fortunately, CT did not suggest an obstructing renal stone. Blood cultures never drawn and she has received IV antibiotics. Will check blood cultures today. Continue to trend her white count. We will keep her on IV ceftriaxone and de-escalate to oral antibiotics once there is clinical improvement. (3) Elevated troponin Impression: Her troponins are elevated in the mid 60s and they are relatively flat. Suspect this is likely demand ischemia in the setting of infection and dehydration. She did not have any chest pain on admission and her EKG was not suggestive of an ischemia. She informed the woods laborer that she would not want medical treatment even if she were to have a NSTEMI. We discussed that this is still her wishes today and she is uncertain. Therefore, we will continue to trend her troponins and monitor her on telemetry. If her troponins have significant increase, will treat her like a NSTEMI. (4) Dehydration Impression: Appears hypovolemic on exam although her renal function is at baseline. We will continue with IV hydration. Oral intake as tolerated. (5) Chronic atrial fibrillation Impression: She has known atrial fibrillation and her echocardiogram back in 2019 showed a preserved ejection fraction but there was concern for ASD and she did have mild to moderate mitral regurgitation. We discussed anticoagulation briefly today and she is uncertain if this would be in her interest that she prefers not to take any medications. She does fall quite frequently and she has been seen emergency partner multiple times for lacerations and hematomas. She likely would not be the best candidate for anticoagulation given these concerns. We will continue to monitor her on telemetry. Fortunately she is rate controlled at the moment so we will hold off on initiating beta-blockers. (6) Hematoma of right parietal scalp Impression: Continue to monitor for the time being. CT head was negative for acute abnormalities. Qualifiers: Encounter type: initial encounter Qualified Code(s): S00.03XA - Contusion of scalp, initial encounter (7) Fall from slip, trip, or stumble Impression: Has been seen multiple times the emergency department for falls. We will consult physical therapy to evaluate her. Qualifiers: Encounter type: initial encounter Qualified Code(s): W01.0XXA - Fall on same level from slipping, tripping and stumbling without subsequent striking against object, initial encounter
[2019-05-01] MEDS: cefTRIAXone 1 GM in SODIUM CHLORIDE 0.9% MINIBAG 100 ML IV SCH (09:25)
[2019-05-01] MEDS: LACTATED RINGERS 1,000 ML IV SCH (09:51)
[2019-05-01] MEDS: polyethylene glycoL 3350 17 GM PACKET PO SCH (10:31)
[2019-05-01] MEDS: PHENAZOPYRIDINE 100 MG TABLET PO SCH ×2 (12:30→20:24)
[2019-05-01] MEDS ORDERED: PHENAZOPYRIDINE 100 MG TABLET PO SCH (14:00)
--- NOTE | 2019-05-01 15:35 | PHARMACY PROGRESS NOTE ---
- Best Possible Medication History Admit Date and Time: 04/30/192206 Processed by: Pharmacy Medication History completed: Yes Patient Interview: Completed Secondary Source(s): Physician records, Insurance records As the person ultimately responsible for medication therapy, providers are able to order a medication from an existing home medication list in [facility] via the "Reconcile Routine" prior to Confirmation of that medication by therapeutic support staff. Such practice is discouraged except when the physician, in their clinical judgment, deems that a medical need exists for a medication without regard to previous use.
[2019-05-02] MEDS: SODIUM CHLORIDE FLUSH 0.9% 10 ML SYRINGE IVP SCH ×3 (01:28→17:53)
[2019-05-02 05:23] LABS: BASOPHILS # (AUTO) 0.1 10^3/uL (0.0-0.1); BASOPHILS % (AUTO) 0.4 %; EOSINOPHILS # (AUTO) 0.1 10^3/uL (0.0-0.7); EOSINOPHILS % (AUTO) 1.1 %; HGB - HEMOGLOBIN 12.1 g/dL (12.0-16.0); LYMPHOCYTES # (AUTO) 1.8 10^3/uL (1.5-3.5); LYMPHOCYTES % (AUTO) 15.5 %; MEAN CORPUSCULAR HGB CONC 31.7 g/dL (32.0-36.0); MEAN CORPUSCULAR VOLUME 88.4 fL (81.0-99.0); MEAN PLATELET VOLUME 12.6 fL (7.9-10.8); MONOCYTES # (AUTO) 0.8 10^3/uL (0.0-1.0); MONOCYTES % (AUTO) 7.1 %; NEUTROPHILS # (AUTO) 8.6 10^3/uL (1.5-6.6); NEUTROPHILS % (AUTO) 75.2 %; PLT - PLATELET COUNT 157 10^3/uL (130-450); RED BLOOD COUNT 4.32 10^6/uL (4.20-5.40); RED CELL DISTRIBUTION WIDTH 14.1 % (12.0-15.0); WHITE BLOOD COUNT 11.5 x10^3/uL (4.8-10.8)
[2019-05-02 05:33] LABS: CALCIUM 9.5 mg/dL (8.5-10.3); CREATININE 1.1 mg/dL (0.4-1.0)
[2019-05-02] MEDS: polyethylene glycoL 3350 17 GM PACKET PO SCH (08:29)
[2019-05-02] MEDS: cefTRIAXone 1 GM in SODIUM CHLORIDE 0.9% MINIBAG 100 ML IV SCH (08:29)
[2019-05-02] MEDS: PHENAZOPYRIDINE 100 MG TABLET PO SCH (08:29)
--- NOTE | 2019-05-02 15:09 | PROVIDER PROGRESS NOTE ---
Assessment/Plan - Problem List (1) E. coli UTI Assessment/Plan: The urine cx grew E coli and sensitivities have returned and the iv antibx will be transitioned to oral Augmentin and to finish a 7 day course of treatment (2) Pyelonephritis Assessment/Plan: As per work-up Continue antibx She was started on Pyridium, but to me she denied any dysuria. (3) Dementia Assessment/Plan: The patient no longer has metabolic encephalopathy, she is probably at her baseline of cognition now. OT for a cognitive eval was ordered and documented a score of 4/20. The patient needs more caregiving or needs SNF for PT rehab before going home. I spoke to the step-daughter at bedside, who arrived today from [place]. She will be staying here for several weeks to get things arranged for her step-mother. She has convinced the patient to agree to a SNF. I told the patient and step-daughter that the patient may no longer drive a car. I will ask the DCRN or SW to choice them, since she may be stable for [facility] tomorrow. (4) Dehydration Assessment/Plan: No clinical signs of dehydration, mucosa moist. Will decrease then stop iv fluids. Encourage po liquids. (5) Chronic atrial fibrillation Assessment/Plan: She was on no rate-control meds or anticoag or aspirin before admission. Her HR is controlled on no meds, indicating conduction system disease. Because of her falls, she is not an anticoagulation candidate. Will start 1 baby aspirin daily for stroke prophylaxis. Initially the patient told the admitting provider that she wanted to take "no meds whatsoever" but today the step-daughterDANA is convince her to take what is recommended by doctors. (6) Hematoma of right parietal scalp Qualifiers: Encounter type: subsequent encounter Qualified Code(s): S00.03XD - Contusion of scalp, subsequent encounter Assessment/Plan: No facial bone fractures as per admission (7) Recurrent falls Assessment/Plan: Because of her falls, she is not an anticoagulation candidate. Will start 1 baby aspirin daily for stroke prophylaxis. PT for rehab at SNF is now planned. - Current Meds Current Meds: Current Medications Generic Name Dose Route Start Last Admin Trade Name Freq PRN Reason Stop Dose Admin Acetaminophen 650 mg 04/30/19 22:07 05/02/19 01:24 Tylenol PO 650 mg Q4HR PRN Administration Pain 1 to 4 Oxycodone HCl 5 mg 04/30/19 22:07 05/01/19 02:35 Roxicodone PO 5 mg Q4HR PRN Administration Pain 5 to 7 Phenazopyridine HCl 100 mg 05/01/19 13:00 05/02/19 08:29 Pyridium PO 100 mg BID TIANA Administration Polyethylene Glycol 17 gm 05/01/19 11:00 05/02/19 08:29 Miralax PO Not Given DAILY TIANA Sodium Chloride 10 ml 04/30/19 22:07 04/30/19 23:04 Normal Saline Flush 0.9% IVP 10 ml PRN PRN Administration NEEDED PER PROVIDER ORDERS Sodium Chloride 10 ml 05/01/19 01:00 05/02/19 08:29 Normal Saline Flush 0.9% IVP 10 ml 0100,0900,1700 TIANA Administration - Lab Result Fish Bone Diagrams: 05/02/19 05:02 05/02/19 05:02 - Additional Planning My Orders: My Active Orders 05/02/19 Evaluate and Treat OT [OT] Routine 05/02/19 21:00 Amox/Clav 875/125 [Augmentin 875/125] 1 tab PO BID 05/02/19 Lunch Vegetarian Diet [DIET] Subjective - Subjective Patient Reports: Resting Comfortably (Sitting up in chair.) Nursing Reports: Confused Objective Vital Signs: Vital Signs - 24 hr 05/01/19 05/01/19 05/01/19 15:43 20:14 23:45 Temperature 36.7 C 36.4 C L 37.2 C Heart Rate [ 76 73 74 Brachial] Heart Rate [ Sitting] Heart Rate [ Supine] Respiratory 14 24 18 Rate Blood Pressure 137/69 H 133/63 H 116/49 L [Right Brachial artery] Blood Pressure [Sitting] Blood Pressure [Supine] O2 Saturation 100 98 94 05/02/19 05/02/19 05/02/19 05:40 07:53 11:39 Temperature 36.3 C L 36.4 C L Heart Rate [ 60 61 Brachial] Heart Rate [ 63 Sitting] Heart Rate [ 64 Supine] Respiratory 18 16 Rate Blood Pressure 109/55 L 123/57 L [Right Brachial artery] Blood Pressure 144/65 H [Sitting] Blood Pressure 145/52 H [Supine] O2 Saturation 94 96 05/02/19 13:00 Temperature 36.5 C Heart Rate [ 62 Brachial] Heart Rate [ Sitting] Heart Rate [ Supine] Respiratory 16 Rate Blood Pressure 116/58 L [Right Brachial artery] Blood Pressure [Sitting] Blood Pressure [Supine] O2 Saturation 96 Oxygen O2 Source Room air I&O (Last 24 Hrs): Intake and Output Totals x24h 04/30/19 05/01/19 05/02/19 23:59 23:59 23:59 Intake Total 100 2973 1080 Output Total 50 870 Balance 50 2103 1080 General: Alert, No acute distress HEENT: Atraumatic, Mucous membr. moist/pink, Other (Poor dentition. Large hematoma R cheek.) Neck: Supple, No JVD Neuro: Disoriented, Non Focal Cardiovascular: No murmurs, Other (Irreg) Respiratory: No respiratory distress Abdomen: Soft Extremities: No edema - Results Results: Laboratory Results WBC 11.5 x10^3/uL (4.8-10.8) H 05/02/19 05:02 RBC 4.32 10^6/uL (4.20-5.40) 05/02/19 05:02 Hgb 12.1 g/dL (12.0-16.0) 05/02/19 05:02 Hct 38.2 % (37.0-47.0) 05/02/19 05:02 MCV 88.4 fL (81.0-99.0) 05/02/19 05:02 MCH 28.0 pg (27.0-31.0) 05/02/19 05:02 MCHC 31.7 g/dL (32.0-36.0) L 05/02/19 05:02 RDW 14.1 % (12.0-15.0) 05/02/19 05:02 Plt Count 157 10^3/uL (130-450) 05/02/19 05:02 MPV 12.6 fL (7.9-10.8) H 05/02/19 05:02 Neut # (Auto) 8.6 10^3/uL (1.5-6.6) H 05/02/19 05:02 Lymph # (Auto) 1.8 10^3/uL (1.5-3.5) 05/02/19 05:02 [place] # (Auto) 0.8 10^3/uL (0.0-1.0) 05/02/19 05:02 Eos # (Auto) 0.1 10^3/uL (0.0-0.7) 05/02/19 05:02 Baso # (Auto) 0.1 10^3/uL (0.0-0.1) 05/02/19 05:02 Absolute Nucleated RBC 0.00 x10^3/uL 05/02/19 05:02 Nucleated RBC % 0.0 /100WBC 05/02/19 05:02 PT 14.1 secs (9.9-12.6) H 04/30/19 19:10 INR 1.3 (0.8-1.2) H 04/30/19 19:10 Sodium 139 mmol/L (135-145) 05/02/19 05:02 Potassium 3.8 mmol/L (3.5-5.0) 05/02/19 05:02 Chloride 105 mmol/L (101-111) 05/02/19 05:02 Carbon Dioxide 24 mmol/L (21-32) 05/02/19 05:02 Anion Gap 10.0 (6-13) 05/02/19 05:02 BUN 27 mg/dL (6-20) H 05/02/19 05:02 Creatinine 1.1 mg/dL (0.4-1.0) H 05/02/19 05:02 Estimated GFR (MDRD) 47 (>89) L 05/02/19 05:02 Glucose 108 mg/dL (70-100) H 05/02/19 05:02 Calcium 9.5 mg/dL (8.5-10.3) 05/02/19 05:02 Magnesium 1.7 mg/dL (1.7-2.8) 04/30/19 19:10 Total Bilirubin 1.8 mg/dL (0.2-1.0) H 04/30/19 19:10 AST 22 IU/L (10-42) 04/30/19 19:10 ALT 12 IU/L (10-60) 04/30/19 19:10 Alkaline Phosphatase 53 IU/L (42-121) 04/30/19 19:10 Total Creatine Kinase 118 IU/L (22-269) 04/30/19 19:10 Troponin I High Sens 64.8 ng/L (2.3-14.8) H* 05/01/19 13:09 Total Protein 7.0 g/dL (6.7-8.2) 04/30/19 19:10 Albumin 3.7 g/dL (3.2-5.5) 04/30/19 19:10 Globulin 3.3 g/dL (2.1-4.2) 04/30/19 19:10 Albumin/Globulin Ratio 1.1 (1.0-2.2) 04/30/19 19:10 Lipase 24 U/L (22-51) 04/30/19 19:10 Urine Color YELLOW 04/30/19 18:33 Urine Clarity CLOUDY (CLEAR) 04/30/19 18: Urine pH 7.0 PH (5.0-7.5) 04/30/19 18:33 Ur Specific [place] 1.025 (1.002-1.030) 04/30/19 18:33 Urine Protein 100 mg/dL (NEGATIVE) H 04/30/19 18:33 Urine Glucose (UA) NEGATIVE mg/dL (NEGATIVE) 04/30/19 18:33 Urine Ketones NEGATIVE mg/dL (NEGATIVE) 04/30/19 18:33 Urine Occult Blood LARGE (NEGATIVE) H 04/30/19 18:33 Urine Nitrite POSITIVE (NEGATIVE) H 04/30/19 18:33 Urine Bilirubin NEGATIVE (NEGATIVE) 04/30/19 18:33 Urine Urobilinogen 0.2 (NORMAL) E.U./dL (NORMAL) 04/30/19 18:33 Ur Leukocyte Esterase LARGE (NEGATIVE) H 04/30/19 18:33 Urine RBC 11-25 /HPF (0-5) H 04/30/19 18:33 Urine WBC >25 /HPF (0-5) H 04/30/19 18:33 Urine WBC Clumps PRESENT 04/30/19 18:33 Ur Squamous Epith Cells RARE Squamous (<= Few) 04/30/19 18:33 Urine Bacteria Moderate /HPF (None Seen) H 04/30/19 18:33 Ur Microscopic Review INDICATED 04/30/19 18:33 Urine Culture Comments INDICATED 04/30/19 18:
[2019-05-02] MEDS: ASPIRIN EC 81 MG TABLET PO SCH (17:52)
[2019-05-02] MEDS ORDERED: CALCIUM CARBONATE CHEW 500 MG TABLET PO PRN (19:54)
[2019-05-02] MEDS: AMOX/CLAV 500 MG/125 MG TABLET PO SCH (20:19)
[2019-05-02] MEDS ORDERED: traZODone 50 MG TABLET PO SCH (21:00)
[2019-05-02] MEDS ORDERED: AMOX/CLAV 875 MG/125 MG TABLET PO SCH (21:00)
[2019-05-03] MEDS: SODIUM CHLORIDE FLUSH 0.9% 10 ML SYRINGE IVP SCH ×2 (01:15→09:14)
[2019-05-03 05:03] LABS: BASOPHILS % (AUTO) 0.3 %; EOSINOPHILS # (AUTO) 0.4 10^3/uL (0.0-0.7); EOSINOPHILS % (AUTO) 5.8 %; HGB - HEMOGLOBIN 11.4 g/dL (12.0-16.0); LYMPHOCYTES # (AUTO) 1.6 10^3/uL (1.5-3.5); LYMPHOCYTES % (AUTO) 22.5 %; MEAN CORPUSCULAR HEMOGLOBIN 28.2 pg (27.0-31.0); MEAN CORPUSCULAR HGB CONC 31.6 g/dL (32.0-36.0); MEAN CORPUSCULAR VOLUME 89.4 fL (81.0-99.0); MEAN PLATELET VOLUME 12.8 fL (7.9-10.8); MONOCYTES # (AUTO) 0.6 10^3/uL (0.0-1.0); MONOCYTES % (AUTO) 8.7 %; NEUTROPHILS # (AUTO) 4.5 10^3/uL (1.5-6.6); NEUTROPHILS % (AUTO) 62.3 %; PLT - PLATELET COUNT 157 10^3/uL (130-450); RED BLOOD COUNT 4.04 10^6/uL (4.20-5.40); RED CELL DISTRIBUTION WIDTH 14.1 % (12.0-15.0); WHITE BLOOD COUNT 7.3 x10^3/uL (4.8-10.8)
[2019-05-03 05:11] LABS: CALCIUM 9.6 mg/dL (8.5-10.3); CREATININE 0.8 mg/dL (0.4-1.0)
--- NOTE | 2019-05-03 08:46 | Discharge Plan ---
"Discharge Plan for SNF / [facility] - Discharge Plan And Transition Orders Problem Reviewed?: Yes Disposition: 03 SNF DC/Xfer Condition: Stable Allergies and Adverse Reactions: Allergies Allergy/AdvReac Type Severity Reaction Status Date / Time No Known Drug Allergies Allergy Verified 09/21/17 07:16 Health Concerns: Admitted after recurrent falls at home, weakness and confusion related to metabolic encephalopathy due acute UTI and due to dementia. Plan of Treatment: Complete a course of antibiotics. Start taking 1 daily aspirin for stroke prevention given the chronic atrial fib. No heart rate slowing medications are needed since her natural heart rate is already controlled. Participate in PT and OT. Driving a vehicle is no longer allowed due to poor cognition. Care Goals: The patient's wish is to return to live at home independently. She may no longer drive, however. Assessment: The instructions were given to the patient and her stepdaughter (DPOA). - SNF / [facility] Transition Orders Admit to (Facility): [facility] Under the care of (Name): Dr Freeman Joiner or covering Provider Discharge Diagnosis: (1) E. coli UTI (2) Pyelonephritis (3) Dementia (4) Dehydration (5) Chronic atrial fibrillation (6) Hematoma of right parietal scalp (7) Recurrent falls at home (8) Code status: DNR Medicare Certification Statement: I certify [facility] medically necessary on a continuing basis for any of the conditions for which she/he is receiving care during hospitalization. Notify PCP of admission and forward orders to primary provider for signature. Weight on admission and: Weekly Call PCP immediately if weight increases by: 5 kg Other Notification Orders: Call PCP immediately if patient develops dyspnea, chest pain/tightness or edema. House Bowel Program: Yes Additional Bowel Program Orders: If no BM after 2 days, nurse may give M.O.M. 30ml PO PRN and/or ducolax Supp 1 CA and/or BROOKS 250mg P.O., and/or senna 1-2 tabs PO. On day 3 nurse may give repeat above order until residents constipation is resolved. Annual Influenza Vaccine (between Nov 06 and June 05): Yes Two-step PPD per [facility] [phone] or approved exception documents: Yes Treatments & Other Orders: Daily PT and OT. Medication Orders: PLEASE REFER TO THE DISCHARGE MEDICATION LIST. Insulin Orders?: No - Medications New Prescriptions: Acetaminophen [Tylenol] 650 mg PO Q4HR PRN #30 tablet PRN Reason: Pain 1 to 4 Amox/Clav 500/125 [Augmentin 500/125] 1 tab PO BID #9 tablet Aspirin [Aspirin EC] 81 mg PO DAILY #30 tablet. Calcium Carbonate [Tums (Calcium Carbonate 500mg)] 500 mg PO TID PRN #30 tablet PRN Reason: Heartburn - Diet Type: Geriatric Texture: Regular Liquids: Thin May have monthly special meal: Yes - Therapies | Activity Therapy: Evaluation | Treat if indicated: PT, OT Rehabilitation Potential: Maximize functional status Activity: Activity as Tolerated Weight Bearing: Full Weight Assistance Devices: Walker Follow Up: See PCP after discharge from SNF."
--- NOTE | 2019-05-03 08:47 | DISCHARGE SUMMARY ---
Discharge Summary Admit Date: 04/30/19 Discharge Date: 05/03/19 Discharging Provider: Dr Joelle Balderrama Primary Care Provider: Dr Leobardo Paige Code Status: Do Not Attempt Resuscitation Condition at Discharge: Stable Discharge Disposition: 03 SNF DC/Xfer Discharge Facility Name: [facility] - DIAGNOSES Admission Diagnoses: (1) Metabolic encephalopathy (2) Pyelonephritis (3) Chronic atrial fibrillation (4) Fall from slip, trip, or stumble (5) Hematoma of right parietal scalp (6) Risk-prone health behavior (7) Elevated troponins Discharge Diagnoses with Status of Each Condition: See below - HPI History of Present Illness: From the admission H&P of Dr Nicolasa Tripp: She is an 88-year-old female who is a sketchy historian because of lack of memory and confusion. History is obtained primarily from the medical record and the ER physician. Her has been recently and she is now living alone. At least that is what she told EMS and the emergency room physician. But in reviewing the medical record her has been since approximately 2004. A friend called to check up on her but received no phone call so she called the police and the police sent a safety check. She was found down on her floor when EMS arrived. She thinks she had been laying on the floor since 7 AM. She told them that she needed lift assistance to the bathroom and when she got up to go to the bathroom she fell again. She was placed in full spinal immobilization and brought to the emergency room. She was complaining of low back pain, and thought it was the year 2001. She was evaluated by Dr. Corral. She was noted to be in atrial fibrillation, blood pressure 167/100. 99% saturation on room air. Respirations 18 and temperature 37.8. Heart rate was 84. He found her to be alert and oriented x2. She had a right gnosticist scalp hematoma and was wearing glasses with c-collar in place. She had an irregularly irregular heartbeat. Mild mid lumbar tenderness to percussion but no step-off. No motor or sensory deficit. White cell count was 11.6 thousand. INR was 1.3. Electrolytes showed a magnesium of 1.7, troponin 56.5, CPK 118, and urinalysis had proteinuria, a large amount of occult blood, positive nitrites, positive leukocyte esterase, hematuria, pyuria, mod erate bacteria, and rare squamous cells. Abdomen/pelvis CT had moderate bilateral lower lobe reticular and alveolar opacities compatible with her history of pulmonary fibrosis and pulmonary hypertension. She had asymptomatic cholelithiasis. Mild left hydronephrosis with adjacent stranding and per inephric stranding. Left proximal hydroureter with adjacent stranding. A couple of left lower pole renal calculi that were nonobstructing. She was felt to have possible acute pyelonephritis. As well as a possibly passed calculus. I did asked Dr. Corral to contact family to make sure they were amenable to her being admitted to this facility. Her troponins are concerning and I wanted to make sure they did not want full cardiology intervention and evaluation. However, there is no one available in the emergency contact list. The patient could not tell us who to contact. She is now admitted for pyelonephritis. - HOSPITAL COURSE Hospital Course: (1) E. coli UTI The urine cx grew E coli. Her WBC was 11.6>> 13.4>> 11.5 then 7.3 on the day of discharge. Her empiric iv antibiotic of Ceftriaxone was transitioned to oral Augmentin and she was discharged on this to finish a 7 day course of treatment (2) Pyelonephritis The abdomen/pelvis CT scan showed left hydronephrosis with adjacent stranding and perinephric stranding consistent with pyelonephritis. The left ureter had stranding as well as bladder wall thickening with adjacent stranding, consistent with cystitis. There were also several left lower pole renal calculi, currently non-obstructing. There was suspicion that she had passed a stone. She received 2 days of iv antibiotics and Pyridium prn. She denied any urinary symptoms when she was communicative. The oral antibiotics were prescribed at discharge. (3) Metabolic encephalopathy She was still very confused for 2 days. Then the closest next-of-kin, the step- daughter, DANA, confirmed she was at her baseline. (3) Dementia The head CT done in the ER showed changes of chronic microangiopathy. After the metabolic encephalopathy cleared, she was at her baseline of diminished cognition. Occupational Therapy performed a cognitive eval and documented a score of 4/20. The family was told that the patient needs more caregiving or needed a SNF for PT rehab before going home. I spoke to the step-daughter at [facility], who arrived from [place]. She will be staying here for several weeks to get things arranged for her step-mother. The step-daughter convinced the patient to agree to be discharged to a SNF. The patient and step-daughter were informed that the patient may no longer drive a car. (4) Dehydration She received iv fluids until there were no clinical signs of dehydration, with a mucosa moist. (5) Chronic atrial fibrillation She was on no rate-control meds or anticoagulant meds or aspirin before admission. She was on telemetry and her heart rate was controlled on no meds, indicating conduction system disease. Because of her falls, she is not an anticoagulation candidate, as such, she was started on 1 baby aspirin daily for stroke prophylaxis. Initially the patient told the admitting provider that she wanted to take "no meds whatsoever", but the step-daughter, DANA, convinced the patient to take what is recommended by doctors. (6) Hematoma of right parietal scalp This was caused by a fall at home. No facial bone or skull fractures were found at imaging at admission, but the head CT did report: hematomas of the right temporal scalp and along the vertex. (7) Recurrent falls She has had many prior ER visits for falls. At this visit, she underwent Xrays of the C-soine, LS spine and Pelvis and no fractures were found. Because of her falls, she is not an anticoagulation candidate. There was no orthostasis. She was discharged to [facility] for PT rehab in stable condition. (8) Abnormal CXR The lung imaging was consistent with Interstitial [pulmonary disease, similar to previous exams. (9) Elevated troponin Her troponins were elevated in a flat pattern in the mid 60s. They may be abnormal from demand ischemia in the setting of infection and dehydration. She did not have any chest pain on admission and her EKG was not suggestive of an ischemia. - ALLERGIES Allergies/Adverse Reactions: Allergies Allergy/AdvReac Type Severity Reaction Status Date / Time No Known Drug Allergies Allergy Verified 09/21/17 07:16 - MEDICATIONS Home Medications: Ambulatory Orders Medication Instructions Recorded Confirmed Ibuprofen/Diphenhydramine Cit [Eql 1 tab PO QPM 05/01/19 05/01/19 Ibuprofen Pm Caplet] Acetaminophen [Tylenol] 650 mg PO Q4HR PRN #30 tablet 05/03/19 Amox/Clav 500/125 [Augmentin 1 tab PO BID #9 tablet 05/03/19 500/125] Aspirin [Aspirin EC] 81 mg PO DAILY #30 tablet. 05/03/19 Calcium Carbonate [Tums (Calcium 500 mg PO TID PRN #30 tablet 05/03/19 Carbonate 500mg)] - PHYSICAL EXAM AT DISCHARGE General Appearance: positive: No acute distress, Alert, Other (Cachectic, with temporal wasting.) Eyes Bilateral: positive: Normal inspection, EOMI ENT: positive: No signs of dehydration, Other (Missing front upper tooth.) Neck: positive: Nml inspection, No JVD Respiratory: positive: No respiratory distress, Breath sounds nml Cardiovascular: positive: Irregularly irregular Abdomen: positive: Non-tender, No distention Skin: positive: Color nml Extremities: positive: No pedal edema Neurologic/Psychiatric: positive: CN's nml (2-12), Disoriented to place, Disoriented to time - LABS Result Diagrams: 05/03/19 04:15 05/03/19 04:15 - DIAGNOSTIC IMAGING Diagnostic Imaging Results: Final report reviewed - FOLLOW UP Follow Up: Advised to see PCP after discharge from SNF.
[2019-05-03] MEDS: polyethylene glycoL 3350 17 GM PACKET PO SCH (09:13)
[2019-05-03] MEDS: AMOX/CLAV 500 MG/125 MG TABLET PO SCH (09:14)
[2019-05-03] MEDS: ASPIRIN EC 81 MG TABLET PO SCH (09:14)
[2019-05-03 12:35] VITALS: BP 127/56
[2019-05-03] MEDS ORDERED: AMOX/CLAV 875 MG/125 MG TABLET PO SCH (21:00)
== END 2019-05-03 15:01 | DRG 689 ==
LOC: EDUNIT# → ED 18:09 → MS3 22:07 → MS2 05-01 18:29
PROVIDERS: ADMIT Specialist; ATTEND Internal Medicine
DX: N12 Tubulo-interstitial nephritis, not specified as acute or chronic (principal); R41.0 Disorientation, unspecified; R53.1 Weakness; I48.91 Unspecified atrial fibrillation; N30.01 Acute cystitis with hematuria; S00.83XA Contusion of other part of head, initial encounter; W19.XXXA Unspecified fall, initial encounter; G93.41 Metabolic encephalopathy; I48.20 Chronic atrial fibrillation, unspecified; Z68.1 Body mass index [BMI] 19.9 or less, adult; Q21.1 Atrial septal defect; J84.9 Interstitial pulmonary disease, unspecified; N13.6 Pyonephrosis; B96.20 Unspecified Escherichia coli [E. coli] as the cause of diseases classified elsewhere; F03.90 Unspecified dementia, unspecified severity, without behavioral disturbance, psychotic disturbance, mood disturbance, and anxiety; E86.0 Dehydration; I08.1 Rheumatic disorders of both mitral and tricuspid valves; I10 Essential (primary) hypertension; S00.03XA Contusion of scalp, initial encounter; R79.89 Other specified abnormal findings of blood chemistry; M81.0 Age-related osteoporosis without current pathological fracture; M41.80 Other forms of scoliosis, site unspecified; R63.4 Abnormal weight loss; H54.7 Unspecified visual loss; R32 Unspecified urinary incontinence; Z66 Do not resuscitate; W01.0XXA Fall on same level from slipping, tripping and stumbling without subsequent striking against object, initial encounter; Y92.009 Unspecified place in unspecified non-institutional (private) residence as the place of occurrence of the external cause; Z79.82 Long term (current) use of aspirin; Z91.81 History of falling
CPT/HCPCS: 36415; 70450; 71045; 72125; 72131; 72170; 74176; 80048; 80053; 81001; 82550; 83690; 83735; 84484; 85025; 85610; 87040; 87086; 87181; 92610; 93005; 96365; 97116; 97161; 97166; 97530; 99285; A9270; J7120; 81003

== ENCOUNTER 2019-09-11 00:06 | Outpatient (CLI) | payer MEDICARE, OTHER | END 2019-09-11 00:07 | disposition critical access hospital (66) | LOC: EMS 00:06 | PROVIDERS: ATTEND Surgery | DX: R10.9 Unspecified abdominal pain (principal); R30.9 Painful micturition, unspecified | CPT/HCPCS: A0425; A0429 ==

== ENCOUNTER 2019-09-11 00:09 | Inpatient (IN) | payer MEDICARE, OTHER ==
[2019-09-11] MEDS ORDERED: SODIUM CHLORIDE 0.9% 1,000 ML IV STA (00:24)
[2019-09-11 00:33] LABS: BILIRUBIN,URINE NEGATIVE (NEGATIVE); CLARITY,URINE SL. CLOUDY (CLEAR); GLUCOSE, URINE (UA) NEGATIVE (NEGATIVE); KETONES,URINE (UA) 15 mg/dL (NEGATIVE); LEUKOCYTE ESTERASE, URINE LARGE (NEGATIVE); NITRITE,URINE NEGATIVE (NEGATIVE); OCCULT BLOOD,URINE MODERATE (NEGATIVE); PH,URINE 6.5 PH (5.0-7.5); PROTEIN,URINE 30 mg/dL (NEGATIVE); UROBILINOGEN,URINE 0.2 (NORMAL) E.U./dL (NORMAL)
[2019-09-11 00:38] LABS: BACTERIA,URINE Few /HPF (None Seen); SQUAMOUS EPITHELIAL CELL,UR RARE Squamous (<= Few)
[2019-09-11] MEDS ORDERED: ONDANSETRON 4 MG/2 ML VIAL IVP STA (00:38)
[2019-09-11 00:45] LABS: BASOPHILS # (AUTO) 0.1 10^3/uL (0.0-0.1); BASOPHILS % (AUTO) 0.5 %; EOSINOPHILS # (AUTO) 0.2 10^3/uL (0.0-0.7); EOSINOPHILS % (AUTO) 2.4 %; HGB - HEMOGLOBIN 13.3 g/dL (12.0-16.0); LYMPHOCYTES # (AUTO) 1.7 10^3/uL (1.5-3.5); LYMPHOCYTES % (AUTO) 16.6 %; MEAN CORPUSCULAR HGB CONC 31.7 g/dL (32.0-36.0); MEAN CORPUSCULAR VOLUME 91.7 fL (81.0-99.0); MEAN PLATELET VOLUME 11.9 fL (7.9-10.8); MONOCYTES # (AUTO) 0.3 10^3/uL (0.0-1.0); MONOCYTES % (AUTO) 3.3 %; NEUTROPHILS # (AUTO) 7.8 10^3/uL (1.5-6.6); NEUTROPHILS % (AUTO) 76.8 %; PLT - PLATELET COUNT 217 10^3/uL (130-450); RED BLOOD COUNT 4.58 10^6/uL (4.20-5.40); RED CELL DISTRIBUTION WIDTH 13.4 % (12.0-15.0); WHITE BLOOD COUNT 10.1 x10^3/uL (4.8-10.8)
[2019-09-11 00:56] LABS: ALBUMIN/GLOBULIN RATIO 1.2 (1.0-2.2); BILIRUBIN,TOTAL 0.8 mg/dL (0.2-1.0); CALCIUM 10.9 mg/dL (8.5-10.3); CREATININE 1.1 mg/dL (0.4-1.0); TOTAL PROTEIN 7.4 g/dL (6.7-8.2)
[2019-09-11] MEDS ORDERED: ACETAMINOPHEN 1,000 MG/100 ML 100 ML IV ONE (01:20)
[2019-09-11] MEDS ORDERED: levoFLOXacin 500 MG/100 ML 500 MG/100 ML BAG IV STA (01:20)
[2019-09-11] MEDS ORDERED: MORPHINE 2 MG/ML CARPUJECT IVP STA (02:28)
[2019-09-11] MEDS ORDERED: IOVERSOL 320 100 ML VIAL IVP ONE ×3 (04:32→05:13)
[2019-09-11] MEDS ORDERED: LORazepam 2 MG/ML VIAL IVP STA (05:13)
--- NOTE | 2019-09-11 06:04 | ED Physician Documentation ---
PD HPI ABD PAIN - Stated complaint Stated Complaint: ABD PAIN - Chief complaint Chief Complaint: Abd Pain - History obtained from History obtained from: Patient, EMS - Additional information Additional information: Patient comes emergency department via EMS for chief complaint of abdominal pain, dysuria, And nausea. Patient states symptoms just started this past afternoon. She states she noted increasing abdominal pain and that she had discomfort with urination. The patient also states that she keeps feeling as though she needs to have a bowel movement but that nothing will come out. Patient also has noticed low back pain.However, she states that she has had low back pain ever since she had back surgery. Patient denies any fevers or chills. No chest pain or shortness of breath. No cough. She states she lives by herself at home and has several cats. Patient has a stepdaughter who is her POA, but lives in [place]. No other complaints at this time. Review of Systems Ten Systems: 10 systems reviewed and negative Constitutional: reports: Reviewed and negative Eyes: reports: Reviewed and negative Ears: reports: Reviewed and negative Nose: reports: Reviewed and negative Throat: reports: Reviewed and negative Cardiac: reports: Reviewed and negative Respiratory: reports: Reviewed and negative GI: reports: Abdominal Pain, Nausea, Constipation : reports: Dysuria Skin: reports: Reviewed and negative Musculoskeletal: reports: Reviewed and negative Neurologic: reports: Reviewed and negative Psychiatric: reports: Reviewed and negative Endocrine: reports: Reviewed and negative Immunocompromised: reports: Reviewed and negative PD PAST MEDICAL HISTORY - Past Medical History Cardiovascular: Hypertension, Atrial fibrillation, Murmur Respiratory: Other Neuro: Other MEAT SPECIALIST: Other : Kidney stones, Other Musculoskeletal: Osteoporosis, Scoliosis Other Past Medical History: Pulmonary Fibrosis, pulmonary htn, frequent bladder infections, - Past Surgical History Past Surgical History: Yes Ortho: Spine surgery /MEAT SPECIALIST: Hysterectomy - Present Medications Home Medications: Ambulatory Orders Medication Instructions Recorded Confirmed Ibuprofen/Diphenhydramine Cit [Eql 1 tab PO QPM 05/01/19 05/01/19 Ibuprofen Pm Caplet] Acetaminophen [Tylenol] 650 mg PO Q4HR PRN #30 tablet 05/03/19 Amox/Clav 500/125 [Augmentin 1 tab PO BID #9 tablet 05/03/19 500/125] Aspirin [Aspirin EC] 81 mg PO DAILY #30 tablet. 05/03/19 Calcium Carbonate [Tums (Calcium 500 mg PO TID PRN #30 tablet 05/03/19 Carbonate 500mg)] - Allergies Allergies/Adverse Reactions: Allergies Allergy/AdvReac Type Severity Reaction Status Date / Time No Known Drug Allergies Allergy Verified 09/11/19 00:20 - Social History Does the pt smoke?: No Smoking Status: Never smoker Does the pt drink ETOH?: No Does the pt have substance abuse?: No - Immunizations Immunizations are current?: No Immunizations: No immun PD ED PE NORMAL - Vitals Vital signs reviewed: Yes - General General: Alert and oriented X 3, No acute distress (The patient appears moderately uncomfortable, but is in no apparent distress.), Well developed/nourished - HEENT HEENT: Atraumatic, PERRL, EOMI, Moist mucous membranes - Neck Neck: Supple, no meningeal sign - Cardiac Cardiac: RRR, No murmur, Strong equal pulses - Respiratory Respiratory: No respiratory distress, Clear bilaterally - Abdomen Abdomen: Soft, Non distended, Other (Patient has moderate diffuse tenderness throughout her abdomen.) - Back Back: Other (Patient has bilateral CVA tenderness.) - Derm Derm: Warm and dry, No rash, Other (Patient is moderately pale.) - Extremities Extremities: No deformity, No edema, No calf tenderness / cord - Neuro Neuro: Alert and oriented X 3, Other (Grossly intact.) - Psych Psych: Normal mood, Normal affect Results - Vitals Vitals: Vital Signs - 24 hr 09/11/19 09/11/19 09/11/19 00:20 02:23 04:21 Temperature 36.6 C Heart Rate 47 L 53 L 49 L Respiratory 16 18 19 Rate Blood Pressure 160/79 H 137/84 H 148/76 H O2 Saturation 99 98 99 09/11/19 05:56 Temperature Heart Rate 76 Respiratory 21 Rate Blood Pressure 162/99 H O2 Saturation 100 Oxygen O2 Source Room air - Labs Labs: Laboratory Tests 09/11/19 09/11/19 09/11/19 00:25 00:35 00:35 WBC 10.1 RBC 4.58 Hgb 13.3 Hct 42.0 MCV 91.7 MCH 29.0 MCHC 31.7 L RDW 13.4 Plt Count 217 MPV 11.9 H Neut # (Auto) 7.8 H Lymph # (Auto) 1.7 [place] # (Auto) 0.3 Eos # (Auto) 0.2 Baso # (Auto) 0.1 Absolute Nucleated RBC 0.00 Nucleated RBC % 0.0 Sodium 138 Potassium 4.0 Chloride 101 Carbon Dioxide 27 Anion Gap 10.0 BUN 25 H Creatinine 1.1 H Estimated GFR (MDRD) 47 L Glucose 157 H Lactic Acid Calcium 10.9 H Total Bilirubin 0.8 AST 23 ALT 13 Alkaline Phosphatase 64 Total Protein 7.4 Albumin 4.0 Globulin 3.4 Albumin/Globulin Ratio 1.2 Lipase 30 Urine Color YELLOW Urine Clarity SL. CLOUDY Urine pH 6.5 Ur Specific [place] 1.025 Urine Protein 30 H Urine Glucose (UA) NEGATIVE Urine Ketones 15 H Urine Occult Blood MODERATE H Urine Nitrite NEGATIVE Urine Bilirubin NEGATIVE Urine Urobilinogen 0.2 (NORMAL) Ur Leukocyte Esterase LARGE H Urine RBC 6-10 H Urine WBC >25 H Ur Squamous Epith Cells RARE Squamous Urine Bacteria Few Ur Microscopic Review INDICATED Urine Culture Comments INDICATED 09/11/19 00:35 WBC RBC Hgb Hct MCV MCH MCHC RDW Plt Count MPV Neut # (Auto) Lymph # (Auto) [place] # (Auto) Eos # (Auto) Baso # (Auto) Absolute Nucleated RBC Nucleated RBC % Sodium Potassium Chloride Carbon Dioxide Anion Gap BUN Creatinine Estimated GFR (MDRD) Glucose Lactic Acid 1.0 Calcium Total Bilirubin AST ALT Alkaline Phosphatase Total Protein Albumin Globulin Albumin/Globulin Ratio Lipase Urine Color Urine Clarity Urine pH Ur Specific [place] Urine Protein Urine Glucose (UA) Urine Ketones Urine Occult Blood Urine Nitrite Urine Bilirubin Urine Urobilinogen Ur Leukocyte Esterase Urine RBC Urine WBC Ur Squamous Epith Cells Urine Bacteria Ur Microscopic Review Urine Culture Comments - Rads (name of study) Abdominal XR Radiology: Final report received, EMP read indepedently, See rad report (SBO vs ileus) CT abd/pelvis Radiology: Final report received, EMP read indepedently, See rad report (Final radiologist interpretation: Focal dilatation of small bowel loops in the pelvis, consistent with closed-loop bowel obstruction. No pneumatosis or pneumoperitoneum. Suspected left pyelitis and ureteritis. Nonobstructing left renal stone. Cholelithiasis again noted.) PD MEDICAL DECISION MAKING - ED course Complexity details: reviewed old records, reviewed results, re-evaluated patient, considered differential, d/w patient, d/w family ED course: Patient was worked up in the emergency department with labs and urinalysis. She was given a 1 L bolus point and normal saline and Zofran for nausea after she did begin vomiting. The patient was able to eventually urinate for us and this did come back positive for infection. However, the degree of patient's abdominal pain, as well as its diffuse nature, and the constant urge to defecate without been able to pass stool made me concerned for potential bowel obstruction. As such, I ordered a flatplate abdomen, which did demonstrate possible ileus or small bowel obstruction. Unfortunately, around this time, the patient began to become agitated, stating she just wanted to go home and did not want to stay any longer. She pulled her IV out and refused CT which I had ordered to further evaluate the abdominal pain and possible obstruction. I did eventually get a hold of the patient's POA, who is her stepdaughter Marla, and Marla did talk to the patient via phone. She was able to convince the patient to have the IV replaced, and to finish getting her Levaquin for her UTI, which had been interrupted by the discontinuation of the IV. She also discussed with the patient that she needed to get the CT scan to determine what was going on. IV was replaced and Levaquin was finished. The patient was sent for CT scan of the abdomen and pelvis with IV contrast, which did show a closed-loop small bowel obstruction, as well as pyelitis. I spoke with Dr. Anne, who is on-call for surgery, and he stated that he would happy to see the patient in consult, and that the patient ought to have her closed-loop small bowel obstruction treated somehow. I did speak with Dr. Millan, who agreed to primarily admit the patient to hospitalist service. Departure - Departure Disposition: 66 [facility] DC/Xfer Clinical Impression: Bowel obstruction Qualifiers: Intestinal obstruction type: unspecified Intestinal obstruction extent: complete Qualified Code(s): K56.601 - Complete intestinal obstruction, unspecified as to cause UTI (urinary tract infection) Qualifiers: Urinary tract infection type: acute cystitis Hematuria presence: without hematuria Qualified Code(s): N30.00 - Acute cystitis without hematuria Condition: Serious
[2019-09-11] MEDS ORDERED: ONDANSETRON 4 MG/2 ML VIAL IVP PRN (06:28)
[2019-09-11] MEDS: SODIUM CHLORIDE 0.9% 1,000 ML IV SCH ×3 (07:25→20:47)
[2019-09-11] MEDS: SODIUM CHLORIDE FLUSH 0.9% 10 ML SYRINGE IVP PRN (07:26)
--- NOTE | 2019-09-11 08:12 | CT Report ---
PROCEDURE: Abdomen/Pelvis W INDICATIONS: abdominal pain/vomiting/obstruction CONTRAST: IV CONTRAST: Optiray 320 ml: 80 PO CONTRAST: *NO PO CONTRAST TECHNIQUE: After the administration of oral and intravenous contrast, 5 mm thick sections acquired from the diap hragms to the symphysis. 5 mm thick coronal and sagittal reformats were acquired. For radiation dos e reduction, the following was used: automated exposure control, adjustment of mA and/or kV accordin g to patient size. COMPARISON: CT abdomen pelvis 04/30/19 FINDINGS: Image quality: Excellent. ABDOMEN: Lung bases: Chronic interstitial changes are present. Heart is enlarged. Solid organs: Liver and spleen are normal in size. Hepatic cyst is present. Gallbladder demonstrates multiple luminal stones without wall thickening, unchanged Biliary system is non dilated. Pancreas demonstrates an unchanged low-attenuation focus within the pancreatic head measuring approximately 1 3 mm. It is unchanged. There is no pancreatic ductal dilation. No adrenal nodules. Kidneys demonstra te left-sided renal atrophy with nonobstructing calcification. There is a mild appearance of left sup erior ureteral dilation with slight stranding and enhancement within the wall of the left renal pelvi s and superior ureter. Peritoneum and bowel: Colonic diverticula are present without inflammatory change.. There are moderat harmeet dilated fluid-filled loops of small bowel predominantly within the pelvis. No free fluid or air. Nodes and vessels: No retroperitoneal or mesenteric adenopathy by size criteria. Aorta and inferior vena cava are normal in size. Miscellaneous: No ventral hernias. PELVIS: Genitourinary: Bladder wall thickness is normal. Miscellaneous: No inguinal hernias or adenopathy. Bones: No suspicious bony lesions. No vertebral body compression fractures. IMPRESSION: 1. Loops of dilated fluid-filled small bowel within the pelvis most consistent with partial small bow el obstruction. No pneumoperitoneum or pneumatosis. 2. Suspected appearance of infection or inflammation within the proximal left ureter and renal pelvis as above. 3. Unchanged cholelithiasis. 4. 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 5. Diverticulosis. The above findings are concordant with preliminary report. Reviewed by: Shakila Guo MD on 09/11/2019 8:11 AM PDT Approved by: Shakila Guo MD on 09/11/2019 8:11 AM PDT Station ID: [id number]
--- NOTE | 2019-09-11 08:27 | HISTORY & PHYSICAL EXAMINATION ---
Chief Complaint - Chief Complaint Chief Complaint: Generalized abdominal pain since the afternoon of September 09 History of Present Illness - Admitted From Admitted From:: Home/emergency room - History Obtained From Records Reviewed: [facility] and [facility] History obtained from: Patient and medical record Exam Limitations: Forgetfulness, poor judgment - History of Present Illness HPI Comment/Other: I am meeting this patient after she has been transferred from the emergency room to [facility]. I am the hospitalist taking care of her with previous emergency room doctor and hospitalist writing orders for her. I find her to be alert, oriented to place. But a difficult historian and that she is very fixated on getting up to walk to go to the toilet but clearly very weak, and unable to even get out of bed. She is very angry. She states that she has no history of abdominal pain. She denies any chronic constipation or diarrhea. Her main problem is recurrent urinary tract infections.Previous abdominal surgery includes a hysterectomy. Pain is described as a generalized severe cramping. Diffuse. It comes in waves. She keeps on feeling like she has to go to the bathroom but nothing will come out. She denies fever, chills. Cannot remember the last time she ate. She cannot remember her last bowel movement. I met her in April 2019. At that point in time she was admitted for pyelonephritis with metabolic encephalopathy. She lives alone, and her has been since 2004. At that time she was found down with that admission. She did have elevated troponins. After being treated for E. coli U TI for her pyelonephritis, she was discharged to [facility] for rehab. She then saw her primary care provider June 06, 2019. At that point in time she was indignant that she could not drive and wanted a form filled out to allow her to drive. She is still not allowed to drive. She canceled her July 2019 appointment and has not been seen by any provider. She is occasionally helped by her neighbor Christina who is a home health nurse. Christina's phone number is [phone]. She also has a stepdaughter named Marla who is at [phone]. In the emergency room the patient is afebrile at 36.6. She is mildly bradycardic at 47. Blood pressure is 160/79 and she is 16% on room air. She is a tiny elderly female, appears dehydrated, has a soft, nondistended abdomen. Moderate diffuse tenderness throughout. No mention of bowel sounds. Her white cell count is 10.1 thousand. Urinalysis has squamous cells with large amount of leukocyte Estrace. CT of the abdomen has small bowel dilation, possible cholecystitis, possible left pyelonephritis. She is now admitted to the hospital for treatment of these problems. General surgery has been consulted. History - Past Medical History Cardiovascular: reports: Hypertension, Atrial fibrillation (Diagnosed November 2018 when she was admitted for dizziness, falls, leg edema. EKG and echocardiogram recommended but she declined. A month later she changed her mind and she did an echo and chest x-ray. December 2018 echo shows normal LV cavity size with mild concentric left ventricular hypertro), Murmur, Other (Atrial septal defect) Respiratory: reports: Other (Pulmonary hypertension on echo December 2018.) Neuro: reports: Dementia (With chronic insomnia), Other (Frequent falls where she has "funny feeling in her ears" then falls. Has a tendency to want to fall backwards.) SUPERVISOR BOARDING: reports: Other ([id number] with 3 abortions.) : reports: Incontinence, Kidney stones, Other Musculoskeletal: reports: Osteoporosis, Scoliosis (With kyphosis ), Chronic back pain, Other (Lumbar spinal stenosis) MRSA Hx?: No Other Past Medical History: Pulmonary Fibrosis, pulmonary htn, frequent bladder infections, - Past Surgical History Ortho: reports: Spine surgery /SUPERVISOR BOARDING: reports: Hysterectomy - Family & Social History Family History Comment/Other: Mother when the patient was 4, was blown up by ordinance in WW[place] with a family cow (witnessed by patient) and the patient was put in an orphanage. Father had history of depression. 2 brothers in [facility], nieces and nephews but can't help. No children Living arrangement: At home Living Situation: Alone Social History Notes: She never smoked. Rarely drank alcohol. Mother when she was 4 years old. She did have a younger sister. They were both placed in an orphanage until her father remarried. Her father had a history of depression and it was an unhappy childhood. The patient an [place] soldier who brought her to the [place]. She later him when he did not show any indication that he wanted to work hard. She herself worked for [employer]. She remarried another [place] and they were for 45 years. She is more interested in animal rights then in human rights. She is a vegetarian because she does not believe in animals being killed to be service food.Her main concern is her cats at home. . When I asked who speaks to her when she cannot speak for herself, she states that she has a stepdaughter who lives in [facility] .She also relies on her next-door neighbor Christina Doty to help her. - Substance History Use: Uses substance without health or social issues: NONE - POLST Patient has POLST: No POLST Status: Full Code Meds/Allgy - Home Medications Home Medications: Ambulatory Orders Medication Instructions Recorded Confirmed Ibuprofen/Diphenhydramine Cit [Eql 1 tab PO QPM 05/01/19 05/01/19 Ibuprofen Pm Caplet] Acetaminophen [Tylenol] 650 mg PO Q4HR PRN #30 tablet 05/03/19 Aspirin [Aspirin EC] 81 mg PO DAILY #30 tablet. 05/03/19 Calcium Carbonate [Tums (Calcium 500 mg PO TID PRN #30 tablet 05/03/19 Carbonate 500mg)] - Allergies Allergies/Adverse Reactions: Allergies Allergy/AdvReac Type Severity Reaction Status Date / Time No Known Drug Allergies Allergy Verified 09/11/19 00:20 Review of Systems - Constitutional Constitutional: reports: Fatigue, Weakness, Poor appetite. denies: Fever, Chills, Malaise, Diaphoresis, Night sweats - Eyes Eyes: denies: Pain, Irritation, Amaurosis, Blurred vision - Ears, Nose & Throat Ears, Nose & Throat: reports: Hearing loss. denies: Ear pain, Hearing aids, Tinnitus, Vertigo - Cardiovascular Cariovascular: reports: Irregular heart rate, Edema, Lightheadedness. denies: Palpitations, Chest pain, Syncope, Exertional dyspnea - Respiratory Respiratory: denies: Cough, Sputum production, Wheezing, Snoring - Gastrointestinal Gastrointestinal: reports: Abdominal pain, Abdominal distention, Constipation, Change in bowel habits, Nausea. denies: Black stools, Bloody stools, Vomiting, Bile emesis - Genitourinary Genitourinary: reports: Frequency, Urgency, Incontinence. denies: Dysuria, Hematuria, Flank pain - Musculoskeletal Musculoskeletal: reports: Back pain, Muscle aches, Stiffness, Limited range of motion, Joint pain. denies: Muscle pain, Muscle weakness, Gout - Integumentary Integumentary: denies: Rash, Pruritis, Lesions, Dryness, Acne - Neurological Neurological: reports: General weakness, Dizziness, Pre-existing deficit. denies: Focal weakness, Headache, Numbness - Psychiatric Psychiatric: reports: Depression. denies: Anxiety, Suicidal - Endocrine Endocrine: denies: Polyuria, Polydypsia, Polyphagia - Hematologic/Lymphatic Hematologic/Lymphatic: denies: Anemia, Bruising, Petechiae Prior Level of Functionality: Although she has significant cognitive deficits, this patient is still living alone. It is my impression from review of her outpatient medical record she no longer is able to drive. She had her license taken away. But she still drives in spite of that. She states that she is still able to feed herself dress herself. She has help with people bringing her things. But she refuses to have food delivered, ride shares. Step daughter is exasperated and walking that thin balance of invoking fulll POA vs. letting patient do things her way. [place]. Amelia Bryan is also a person who lives nearby to help. Exam - Vital Signs Reviewed Vital Signs: Yes Vital Signs: Vital Signs x48h Temp Pulse Pulse Resp BP BP Pulse Ox 09/11/19 07:25 36.8 C 67 18 156/76 H 100 09/11/19 05:56 76 21 162/99 H 100 09/11/19 04:21 49 L 19 148/76 H 99 09/11/19 02:23 53 L 18 137/84 H 98 Conclusion/Plan - Problem List (1) Bowel obstruction Conclusion/Plan: Previous abdominal surgeries are minimal. She is only had a hysterectomy. She does not have a fever, nor does she have an elevated white cell count. Pain this morning seems greater than yesterday by her description. Abdomen is not rigid. Plan: General surgery consultation. Serial abdominal exams N.p.o. Antiemetics and pain meds She declines NG tube Daily CBC Change abx to cipro and flagyl if she spikes fever or gets WBC. Qualifiers: Intestinal obstruction type: unspecified Intestinal obstruction extent: complete Qualified Code(s): K56.601 - Complete intestinal obstruction, unspecified as to cause (2) Pre-op evaluation Conclusion/Plan: National surgical risk calculator, taking into account her age, dementia, and needing a POA leaves her with a surgical risk of 18.9% for serious complication. Any complication 22%. Pneumonia risk 3.8. Readmission 12.3%. 9.8% risk of . She will most likely need discharge to a nursing or rehab facility. (3) UTI (urinary tract infection) Conclusion/Plan: Previous urine in April 2019 grew out E. coli. It was pansensitive. Plan: Levaquin in the emergency room is now followed by ceftriaxone on [facility] floor. Will adjust antibiotics on the basis of sensitivities when they are available. We will also change to p.o. soon as we can. Qualifiers: Urinary tract infection type: acute pyelonephritis Qualified Code(s): N10 - Acute pyelonephritis (4) Cholelithiasis Conclusion/Plan: She is not clearly having right upper quadrant pain. Her abdominal exam shows me generalized abdominal pain with some increase in the right upper quadrant but not really clear enough to call. She does not have a fever, she does not have an elevated white cell count. Plan: Watch liver enzymes especially bili General surgery consult already done for her small bowel obstruction, will see what his opinion is Qualifiers: Cholelithiasis location: gallbladder and bile duct (5) Chronic atrial fibrillation Conclusion/Plan: She is not anticoagulated. If I remember correctly, the decision was made not to anticoagulate her due to 2 factors. The first of which was history of falls. She would be at too much risk for intracranial bleeding or other bleeding with her risk of falls. The other, was her personal decision not to take medication for this. Rate is currently controlled. Will use as needed beta-anshu. With her last admission she had an elevated troponin. Will check troponin and EKG (6) Dementia Conclusion/Plan: She can be very guarded with her history. Is very fiercely independent and does not like people interfering with her home life. At this time she appears to be slightly confused and that she keeps on trying to get out of bed even though she is clearly so weak that she cannot. She is impulsive. Poor judgment. Plan: Social work consult Contact her power of tax attorney/stepdaughterMarla in [facility] Qualifiers: Dementia type: Alzheimer's disease Alzheimer's disease onset: unspecified onset Dementia behavioral disturbance: without behavioral disturbance Qualified Code(s): G30.9 - Alzheimer's disease, unspecified; F02.80 - Dementia in other diseases classified elsewhere without behavioral disturbance (7) Acute worsening of stage 3 chronic kidney disease Conclusion/Plan: Baseline creatinine/GFR is usually less than 1/50s. Today she is 25 and 1.1 with a GFR of 47. Plan: Avoid nephrotoxic agents IV fluids Monitor daily - Lab Results Lab results reviewed: Yes Fish Bones: 09/11/19 00:35 09/11/19 00:35 - Diagnostic Imaging Results Diagnostic Imaging Results: positive: Final report reviewed Diagnostic Imaging Results Comments: PROCEDURE: Abdomen/Pelvis W INDICATIONS: abdominal pain/vomiting/obstruction CONTRAST: IV CONTRAST: Optiray 320 ml: 80 PO CONTRAST: *NO PO CONTRAST TECHNIQUE: After the administration of oral and intravenous contrast, 5 mm thick sections acquired from the diaphragms to the symphysis. 5 mm thick coronal and sagittal reformats were acquired. For radiation dose reduction, the following was used: automated exposure control, adjustment of mA and/or kV according to patient size. COMPARISON: CT abdomen pelvis 04/30/19 FINDINGS: Image quality: Excellent. ABDOMEN: Lung bases: Chronic interstitial changes are present. Heart is enlarged. Solid organs: Liver and spleen are normal in size. Hepatic cyst is present. Gallbladder demonstrates multiple luminal stones without wall thickening, unchanged Biliary system is non dilated. Pancreas demonstrates an unchanged low-attenuation focus within the pancreatic head measuring approximately 13 mm. It is unchanged. There is no pancreatic ductal dilation. No adrenal nodules. Kidneys demonstrate left-sided renal atrophy with nonobstructing calcification. There is a mild appearance of left superior ureteral dilation with slight stranding and enhancement within the wall of the left renal pelvis and superior ureter. Peritoneum and bowel: Colonic diverticula are present without inflammatory change.. There are moderately dilated fluid-filled loops of small bowel predominantly within the pelvis. No free fluid or air. Nodes and vessels: No retroperitoneal or mesenteric adenopathy by size criteria. Aorta and inferior vena cava are normal in size. Miscellaneous: No ventral hernias. PELVIS: Genitourinary: Bladder wall thickness is normal. Miscellaneous: No inguinal hernias or adenopathy. Bones: No suspicious bony lesions. No vertebral body compression fractures. IMPRESSION: 1. Loops of dilated fluid-filled small bowel within the pelvis most consistent with partial small bowel obstruction. No pneumoperitoneum or pneumatosis. 2. Suspected appearance of infection or inflammation within the proximal left ureter and renal pelvis as above. 3. Unchanged cholelithiasis. 4. 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 5. Diverticulosis. The above findings are concordant with preliminary report. Reviewed by: Shakila Guo MD on 09/11/2019 8:11 AM PDT Approved by: Shakila Guo MD on 09/11/2019 8:11 AM PDT
[2019-09-11] MEDS: PANTOPRAZOLE 40 MG VIAL IVP SCH (09:00)
[2019-09-11] MEDS: HYDROmorphone 0.5 MG/0.5 ML SYRINGE IVP PRN ×4 (09:00→20:31)
[2019-09-11] MEDS: SODIUM CHLORIDE FLUSH 0.9% 10 ML SYRINGE IVP SCH ×2 (09:01→17:11)
--- NOTE | 2019-09-11 09:15 | CONSULTATION NOTE ---
Referring Provider Name of Referring Provider:: Dr. Tripp Consult Date: 09/11/19 Chief Complaint - Chief Complaint Chief Complaint: Nausea, vomiting, and CT consistent with obstruction. History of Present Illness - Admitted From Admitted From:: Emergency room. - History Obtained From History obtained from: Electronic medical record amongst others. Exam Limitations: Patient is demented. - History of Present Illness HPI Comment/Other: 88-year-old female who presents to emergency department via EMS for chief complaint of abdominal pain, dysuria, and nausea with vomiting. Patient states symptoms just started yesterday. She states she noted increasing abdominal pain and that she had discomfort with urination as well. Reports back pain and abdominal discomfort. Surgical history noted for back surgery and hysterectomy. Has past history of pelvic radiation. Does not recall last colonoscopy. When asked if needed surgery patient reluctant and currently refusing. History - Past Medical History Cardiovascular: reports: Hypertension, Atrial fibrillation (Diagnosed November 2018 when she was admitted for dizziness, falls, leg edema. EKG and echocardiogram recommended but she declined. A month later she changed her mind and she did an echo and chest x-ray. December 2018 echo shows normal LV cavity size with mild concentric left ventricular hypertro), Murmur, Other (Atrial septal defect) Respiratory: reports: Other (Pulmonary hypertension on echo December 2018.) Neuro: reports: Dementia (With chronic insomnia), Other (Frequent falls where she has "funny feeling in her ears" then falls. 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 Father had history of depression. No siblings known. No children Living arrangement: At home Living Situation: Alone Social History Notes: She never smoked. Rarely drank alcohol. Mother when she was 4 years old. She did have a younger sister. They were both placed in an orphanage until her father remarried. Her father had a history of depression and it was an unhappy childhood. 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 She later him when he did not show any indication that he wanted to work hard. She herself worked for [employer]. She remarried another [place] and they were for 45 years. She is more interested in animal rights then in human rights. She is a vegetarian because she does not believe in animals being killed to be service food.Her main concern is her cats at home. When I asked who speaks to her when she cannot speak for herself, she states that she has a stepdaughter who lives in [facility]. She also relies on her next-door neighbor Christina Doty to help her. - Substance History Use: Uses substance without health or social issues: NONE - POLST Patient has POLST: No POLST Status: Full Code Meds/Allgy - Home Medications Home Medications: Ambulatory Orders Medication Instructions Recorded Confirmed Ibuprofen/Diphenhydramine Cit [Eql 1 tab PO QPM 05/01/19 05/01/19 Ibuprofen Pm Caplet] Acetaminophen [Tylenol] 650 mg PO Q4HR PRN #30 tablet 05/03/19 Aspirin [Aspirin EC] 81 mg PO DAILY #30 tablet. 05/03/19 Calcium Carbonate [Tums (Calcium 500 mg PO TID PRN #30 tablet 05/03/19 Carbonate 500mg)] - Allergies Allergies/Adverse Reactions: Allergies Allergy/AdvReac Type Severity Reaction Status Date / Time No Known Drug Allergies Allergy Verified 09/11/19 00:20 Exam - Vital Signs Vital Signs: Vital Signs x48h Temp Pulse Pulse Resp BP BP Pulse Ox 09/11/19 07:25 36.8 C 67 18 156/76 H 100 09/11/19 05:56 76 21 162/99 H 100 09/11/19 04:21 49 L 19 148/76 H 99 09/11/19 02:23 53 L 18 137/84 H 98 - Physical Exam General Appearance: positive: No acute distress, Anxious Eyes Bilateral: positive: Normal inspection, PERRL, EOMI Neck: positive: Nml inspection Respiratory: positive: Chest non-tender, No respiratory distress Cardiovascular: positive: Bradycardia Abdomen: positive: Other (Abdomen soft, Positive tenderness to suprapubic region, no rebound no guarding. Nondistended. Well-healed scar.) Neurologic/Psychiatric: positive: CN's nml (2-12), Disoriented to place, Disoriented to time Conclusion/Plan - Diagnosis Diagnosis: 1. Small bowel obstruction. 2. obstipation. 3. History of prior abdominal procedures. 4. Dementia, Multiple Comorbid States - Plan Plan: 88 with history of hysterectomy laparotomy, patient does not recollect pathology. She presents with reported closed-loop small bowel obstruction on imaging with associated obstipation. No peritoneal signs at this time. Patient without leukocytosis. Without concern for peritonitis. No pneumatosis, portal venous gas or other worrisome features on imaging. Patient when asked if interested in operative intervention, which she was advised might be necessary to save her life if symptoms fail to quickly resolve or progress, was reticent and reluctant. Discussed this with Dr. Tripp who will discuss with the patient's proxy. She believes the patient lacks capacity. Plan as follows: 1. bowel rest, nasogastric decompression as necessary, IV fluid resuscitation.Recommend Byrne catheter. 2. Serial abdominal exams, plain film imaging with repeat plain film this afternoon, possible repeat imaging with CT and contrast challenge. 3. May need operative intervention if fails conservative management. Will follow closely. Goals of care should be discussed. 4. Electrolytes normal at this time we will continue to monitor them with daily lab draws. - Lab Results Fish Bones: 09/11/19 00:35 09/11/19 00:35
--- NOTE | 2019-09-11 09:47 | XRAY Report ---
PROCEDURE: Abdomen 1 View X-Ray INDICATIONS: abd pain/vomiting TECHNIQUE: 1 view of the abdomen were acquired. COMPARISON: CT abdomen pelvis 04/30/2019, 09/11/2019 FINDINGS: Surgical changes and devices: None. Bowel: No pneumoperitoneum. There is an appearance of mildly dilated loops of small bowel within the pelvis. Soft tissues: No masses; visualized solid organ contours appear normal in size. Calcifications are n oted overlying the right upper quadrant. Lung bases demonstrate chronic changes appearing consistent with fibrosis as identified on prior exam. Bones: No suspicious bony abnormalities. IMPRESSION: 1. Cholelithiasis. 2. Mildly dilated small bowel loops within the pelvis suggestive of partial small bowel obstruction. The above findings are concordant with preliminary report. Reviewed by: Shakila Guo MD on 09/11/2019 9:46 AM PDT Approved by: Shakila Guo MD on 09/11/2019 9:46 AM PDT Station ID: [id number]
[2019-09-11] MEDS ORDERED: METOPROLOL 5 MG/5 ML VIAL IVP PRN (10:43)
--- NOTE | 2019-09-11 13:03 | PHARMACY PROGRESS NOTE ---
- Best Possible Medication History Admit Date and Time: 09/11/19627 Processed by: Pharmacy Medication History completed: Yes Patient Interview: Completed Secondary Source(s): Other family member, Pharmacy records, Insurance records As the person ultimately responsible for medication therapy, providers are able to order a medication from an existing home medication list in [facility] via the "Reconcile Routine" prior to Confirmation of that medication by legal support analyst. Such practice is discouraged except when the physician, in their clinical judgment, deems that a medical need exists for a medication without regard to previous use.
[2019-09-12] MEDS: SODIUM CHLORIDE 0.9% 1,000 ML IV SCH (01:25)
[2019-09-12] MEDS: SODIUM CHLORIDE FLUSH 0.9% 10 ML SYRINGE IVP SCH ×4 (01:25→23:35)
[2019-09-12] MEDS: HYDROmorphone 0.5 MG/0.5 ML SYRINGE IVP PRN ×2 (05:37→08:31)
[2019-09-12 06:02] LABS: BASOPHILS % (AUTO) 0.4 %; EOSINOPHILS % (AUTO) 0.1 %; HGB - HEMOGLOBIN 11.8 g/dL (12.0-16.0); LYMPHOCYTES % (AUTO) 7.6 %; MEAN CORPUSCULAR HEMOGLOBIN 29.6 pg (27.0-31.0); MEAN CORPUSCULAR HGB CONC 32.2 g/dL (32.0-36.0); MEAN PLATELET VOLUME 11.9 fL (7.9-10.8); MONOCYTES % (AUTO) 9.6 %; NEUTROPHILS % (AUTO) 81.5 %; PLT - PLATELET COUNT 221 10^3/uL (130-450); RED BLOOD COUNT 3.99 10^6/uL (4.20-5.40); RED CELL DISTRIBUTION WIDTH 14.1 % (12.0-15.0); WHITE BLOOD COUNT 25.4 x10^3/uL (4.8-10.8)
[2019-09-12 06:08] LABS: ABNORMAL LYMPHS % (MANUAL) 0 %
[2019-09-12 06:10] LABS: CALCIUM 9.6 mg/dL (8.5-10.3); CREATININE 1.9 mg/dL (0.4-1.0)
[2019-09-12] MEDS: PANTOPRAZOLE 40 MG VIAL IVP SCH (06:24)
[2019-09-12 06:25] LABS: BAND NEUTROPHILS % (MANUAL) 3 %; LYMPHOCYTES # (MANUAL) 1.8 10^3/uL (1.5-3.5); LYMPHOCYTES % (MANUAL) 7 %; PLATELET ESTIMATE, MANUAL NORMAL (130-450,000) (NORMAL); PLATELET MORPHOLOGY NORMAL APPEARANCE (NORMAL); RBC MORPHOLOGY (MULTIPLE) NORMAL APPEARANCE (NORMAL)
[2019-09-12 06:26] LABS: DIFFERENTIAL COMMENT MANUAL DIFFERENTIAL
[2019-09-12] MEDS: SODIUM CHLORIDE FLUSH 0.9% 10 ML SYRINGE IVP PRN ×2 (06:26→21:16)
[2019-09-12] MEDS ORDERED: SODIUM CHLORIDE 0.9% 1,000 ML IV ONE (06:44)
--- NOTE | 2019-09-12 07:37 | PROVIDER PROGRESS NOTE ---
Subjective - Prog Note Date Prog Note Date: 09/12/19 - Subjective Subjective: Nursing reports that the patient is less communicative today compared to admission. The patient continues to complain of abdominal pain. She is not had a bowel movement. She reports feeling unwell. She is not answering questions as clearly as she was yesterday and providing very short answers. Her urine output has also decreased. Current Medications - Current Medications Current Medications: Active Medications Hydromorphone HCl (Dilaudid Inj Syringe) 0.5 mg IVP Q3H PRN PRN Reason: Pain 8 to 10 Last Admin: 09/12/19 08:31 Dose: 0.5 mg Documented by: Cefepime HCl 2 gm/ Sodium (Chloride) 100 mls @ 200 mls/hr IV BID [facility] Last Admin: 09/12/19 08:15 Dose: 200 mls/hr Documented by: Lactated Ringer's (Lr) 1,000 mls @ 125 mls/hr IV .Q8H TIANA Metoprolol Tartrate (Lopressor Inj) 5 mg IVP Q6H PRN PRN Reason: Tachycardia Ondansetron HCl (Zofran Inj) 4 mg IVP Q6HR PRN PRN Reason: Nausea / Vomiting Last Admin: 09/11/19 10:36 Dose: 4 mg Documented by: Pantoprazole Sodium (Protonix) 40 mg IVP QDAC [facility] Last Admin: 09/12/19 06:24 Dose: 40 mg Documented by: Sodium Chloride (Normal Saline Flush 0.9%) 10 ml IVP PRN PRN PRN Reason: NEEDED PER PROVIDER ORDERS Last Admin: 09/12/19 06:26 Dose: 10 ml Documented by: Sodium Chloride (Normal Saline Flush 0.9%) 10 ml IVP 0100,0900,1700 [facility] Last Admin: 09/12/19 08:31 Dose: 10 ml Documented by: Ibuprofen/Diphenhydramine Cit [Eql Ibuprofen Pm Caplet] 1 tab PO QPM 05/01/19 Objective - Vital Signs/Intake & Output Reviewed Vital Signs: Yes Vital Signs: Vital Signs x48h Temp Pulse Resp BP Pulse Ox 09/12/19 04:35 37 C 87 22 120/53 L 96 09/12/19 00:03 36.3 C L 93 24 117/53 L 95 Intake & Output: Intake & Output 09/09/19 09/10/19 09/11/19 09/12/19 23:59 23:59 23:59 23:59 Intake Total 2630.657 1237.5 Output Total 150 50 Balance 2480.657 1187.5 - Objective General Appearance: positive: Mild distress, Lethargic Eyes Bilateral: positive: Normal inspection, Conjunctivae nml ENT: positive: ENT inspection nml Neck: positive: Nml inspection Respiratory: positive: No respiratory distress. negative: Wheezes, Rales Cardiovascular: positive: Irregularly irregular, Systolic murmur. negative: Tachycardia, Bradycardia Abdomen: positive: No distention, Tenderness (She is diffusely tender with minimal palpation.), Abnml bowel sounds (Hypoactive bowel sounds.). negative: N on-tender, Nml bowel sounds, Guarding, Rebound Skin: positive: Warm, Dry Extremities: positive: No pedal edema Neurologic/Psychiatric: positive: Other (She does not appear to have any focal deficits on exam but her neurologic exam is limited as she does not follow my commands. This appears to be seecondary to her overall weakness and abdominal pain.) - Lab Results Fish Bones: 09/12/19 05:50 09/12/19 05:50 Other Labs: Lab Results x24hrs 09/12/19 09/12/19 09/12/19 Range/Units 05:50 05:50 05:50 WBC 25.4 H (4.8-10.8) x10^3/uL RBC 3.99 L (4.20-5.40) 10^6/uL Hgb 11.8 L (12.0-16.0) g/dL Hct 36.7 L (37.0-47.0) % MCV 92.0 (81.0-99.0) fL MCH 29.6 (27.0-31.0) pg MCHC 32.2 (32.0-36.0) g/dL RDW 14.1 (12.0-15.0) % Plt Count 221 (130-450) 10^3/uL MPV 11.9 H (7.9-10.8) fL Neut # (Auto) Not Reportable Lymph # (Auto) Not Reportable [place] # (Auto) Not Reportable Eos # (Auto) Not Reportable Baso # (Auto) Not Reportable Absolute Nucleated RBC Not Reportable Total Counted 100 Band Neuts % (Manual) 3 (0 - 10) % Abnorm Lymph % (Manual) 0 % Nucleated RBC % Not Reportable Neutrophils # (Manual) 20.6 H (1.5-6.6) 10^3/uL Lymphocytes # (Manual) 1.8 (1.5-3.5) 10^3/uL Monocytes # (Manual) 3.0 H (0.0-1.0) 10^3/uL Eosinophils # (Manual) 0.0 (0-0.7) 10^3/uL Basophils # (Manual) 0.0 (0-0.1) 10^3/uL Differential Comment MANUAL DIFFERENTIAL WBC Morphology NORMAL APPEARANCE (NORMAL) Platelet Estimate NORMAL (130-450,000) (NORMAL) Platelet Morphology NORMAL APPEARANCE (NORMAL) RBC Morph Micro Appear NORMAL APPEARANCE (NORMAL) Sodium 140 (135-145) mmol/L Potassium 5.0 (3.5-5.0) mmol/L Chloride 109 (101-111) mmol/L Carbon Dioxide 23 (21-32) mmol/L Anion Gap 8.0 (6-13) BUN 36 H (6-20) mg/dL Creatinine 1.9 H (0.4-1.0) mg/dL Estimated GFR (MDRD) 25 L (>89) Glucose 109 H (70-100) mg/dL Calcium 9.6 (8.5-10.3) mg/dL Troponin I High Sens (2.3-14.8) ng/L PTH Intact 144 H (12-88) pg/mL 09/11/19 09/11/19 Range/Units 17:31 11:06 WBC (4.8-10.8) x10^3/uL RBC (4.20-5.40) 10^6/uL Hgb (12.0-16.0) g/dL Hct (37.0-47.0) % MCV (81.0-99.0) fL MCH (27.0-31.0) pg MCHC (32.0-36.0) g/dL RDW (12.0-15.0) % Plt Count (130-450) 10^3/uL MPV (7.9-10.8) fL Neut # (Auto) Lymph # (Auto) [place] # (Auto) Eos # (Auto) Baso # (Auto) Absolute Nucleated RBC Total Counted Band Neuts % (Manual) (0 - 10) % Abnorm Lymph % (Manual) % Nucleated RBC % Neutrophils # (Manual) (1.5-6.6) 10^3/uL Lymphocytes # (Manual) (1.5-3.5) 10^3/uL Monocytes # (Manual) (0.0-1.0) 10^3/uL Eosinophils # (Manual) (0-0.7) 10^3/uL Basophils # (Manual) (0-0.1) 10^3/uL Differential Comment WBC Morphology (NORMAL) Platelet Estimate (NORMAL) Platelet Morphology (NORMAL) RBC Morph Micro Appear (NORMAL) Sodium (135-145) mmol/L Potassium (3.5-5.0) mmol/L Chloride (101-111) mmol/L Carbon Dioxide (21-32) mmol/L Anion Gap (6-13) BUN (6-20) mg/dL Creatinine (0.4-1.0) mg/dL Estimated GFR (MDRD) (>89) Glucose (70-100) mg/dL Calcium (8.5-10.3) mg/dL Troponin I High Sens 28.5 H* 19.1 H* (2.3-14.8) ng/L PTH Intact (12-88) pg/mL ABX Reporting Has patient been on IV antibiotics over the past 48 hours?: Yes Assessment/Plan - Problem List (1) Severe sepsis Impression: I am concerned that she is septic secondary to urinary tract infect ion/pyelonephritis. Her white count has increased over 25,000 and she is encephalopathic this morning and much more lethargic. She also has acute renal failure. Fortunately she is normotensive at this time. Her antibiotics were broadened to cefepime IV given the urinary tract infection. We will check blood cultures today as these were not ordered on admission but she has already received IV antibiotics. We will trend her white count. Continue with IV hydration. Her overall prognosis is quite guarded given her significant decline over the past 24 hours given her increased lethargy and acute renal failure as well as the partial bowel obstruction. I did speak with the patient's stepdaughter, Marla, and discussed the patient's current poor prognosis. Marla stated that Jennifer would not want dialysis or resuscitation if she were to decline. Marla would like to continue with current treatment but would not want to escalate care. She would like to remain updated on the patient's condition as if she continues to decline, Marla feels that Jennifer would prefer comfort measures rather than continuing aggressive care. (2) Encephalopathy Impression: Suspect this is related to her ongoing infection. She is quite more lethargic today and not as conversant as she was previously. There is not appear to be any focal deficits on exam but exam is limited due to her lethargy. Her LFTs were within normal limits so do not suspect she did have an elevated ammonia. We will hold off on a CT of the head at this time. We will continue treat her underlying infection and monitor her neurologic status. Avoid sedatives. Delirium precautions. (3) Partial small bowel obstruction Impression: She continues to have hypoactive bowel sounds and has not had a bowel movement. There have been no further episodes of vomiting during his hospitalization. We will repeat abdominal x-ray today for further evaluation. We will consider a Gastrografin challenge. Maintain n.p.o. status. Appreciate general surgery recommendations. (4) Acute kidney injury Impression: She has oliguric acute kidney injury and her creatinine has increased this morning to 1.9 from 1.1 on admission. Her urine output is also decreased. There is no evidence of obstruction on imaging and a Byrne catheter is in place. She did receive IV contrast yesterday for the CT of the abdomen and pelvis. S he was given a bolus earlier this morning and was continued on maintenance IV fluids. We will check a urine sodium. We will repeat labs this afternoon. Avoid nephrotoxins. (5) Leukocytosis Impression: Her white count increased 25,000 this morning with 3% bands. This may be secondary to her urinary tract infection as well as a component of being reactive given her partial small bowel obstruction. We will continue her on cefepime IV. Blood cultures were ordered today despite her already receiving IV antibiotics. Continue to trend her white count. (6) UTI (urinary tract infection) Impression: Her urine culture is growing gram-negative rods. Her white count has increased 25,000 this morning. Imaging was concerning for renal infection without evidence of any obstructing nephrolithiasis. Her antibiotics were broadened to cefepime IV. Blood cultures not drawn on admission and these were ordered today although she has already received IV antibiotics. Continue cefepime IV. We will follow-up urine cultures and de-escalate as clinically appropriate. Trend her white count. Qualifiers: Urinary tract infection type: acute pyelonephritis Qualified Code(s): N10 - Acute pyelonephritis (7) Elevated troponin Impression: This is likely demand ischemia. Her EKG does not suggest any ischemia. Her troponins have increased to the 90s but she has acute renal failure as well as the urinary tract infection and partial small bowel obstruction. An echocardiogram has been ordered and is pending. Continue to monitor on telemetry and trend her troponins (8) Chronic atrial fibrillation Impression: He remains rate controlled at this time. We will continue Lopressor IV as needed. Check echocardiogram today.
[2019-09-12] MEDS ORDERED: CEFEPIME 2 GM in SODIUM CHLORIDE 0.9% MINIBAG 100 ML IV SCH (08:00)
[2019-09-12] MEDS ORDERED: cefTRIAXone 1 GM in SODIUM CHLORIDE 0.9% MINIBAG 100 ML IV SCH (09:00)
[2019-09-12] MEDS: LACTATED RINGERS 1,000 ML IV SCH ×2 (09:00→17:55)
--- NOTE | 2019-09-12 09:24 | XRAY Report ---
PROCEDURE: Abdomen 1 View X-Ray INDICATIONS: Abdominal pain. N/V. TECHNIQUE: 2 supine views of the abdomen were acquired. COMPARISON: CT abdomen pelvis 09/11/2019, x-ray abdomen 09/11/2019 FINDINGS: Surgical changes and devices: None. Bowel: The bowel gas pattern demonstrates a mildly distended segment of small bowel in the left lowe r quadrant measuring up to 3 cm. There is otherwise a paucity of intraluminal gas in the small and la rge bowel. Soft tissues: No suspicious abdominal calcifications. Calcified gallstones in the gallbladder seen o n CT not well visualized on x-ray. There is residual excreted contrast within the renal cortical syst ems from recent CT, right greater than left. Bones: No suspicious bony abnormalities. IMPRESSION: 1. Asymmetric residual contrast within the renal cortical systems, right greater than left, correspon ding to suspected infection within the left renal collecting system and ureter seen on prior CT. 2. Nonspecific bowel gas pattern with a mildly distended segment of small bowel in the left lower irene drant. Findings may reflect an ileus or gastroenteritis. Early obstruction cannot be excluded but con sidered less likely. Recommend clinical follow-up. Reviewed by: Abdirahman Huff MD on 09/12/2019 9:23 AM PDT Approved by: Abdirahman Huff MD on 09/12/2019 9:23 AM PDT Station ID: [id number]
[2019-09-12] MEDS ORDERED: CEFEPIME 1 GM in SODIUM CHLORIDE 0.9% MINIBAG 100 ML IV SCH ×2 (10:12→21:00)
--- NOTE | 2019-09-12 12:41 | PROVIDER PROGRESS NOTE ---
Subjective - Prog Note Date Prog Note Date: 09/12/19 Prog Note Time: 12:39 - Subjective Subjective: Very ill appearing lady. No vomiting today. Lethargic with limited communication and unable to answer questions. Objective - Vital Signs/Intake & Output Reviewed Vital Signs: Yes Vital Signs: Vital Signs x48h Temp Pulse Resp BP Pulse Ox 09/12/19 12:33 36.9 C 85 19 121/63 97 09/12/19 08:34 37.0 C 79 22 124/57 L 96 Intake & Output: Intake & Output 09/09/19 09/10/19 09/11/19 09/12/19 23:59 23:59 23:59 23:59 Intake Total 2630.657 2337.5 Output Total 150 50 Balance 2480.657 2287.5 - Objective General Appearance: positive: Lethargic Abdomen: positive: Tenderness, Other (Hypoactive bowel tones) - Lab Results Fish Bones: 09/12/19 05:50 09/12/19 05:50 Other Labs: Lab Results x24hrs 09/12/19 09/12/19 09/12/19 Range/Units 11:03 11:03 08:38 WBC (4.8-10.8) x10^3/uL RBC (4.20-5.40) 10^6/uL Hgb (12.0-16.0) g/dL Hct (37.0-47.0) % MCV (81.0-99.0) fL MCH (27.0-31.0) pg MCHC (32.0-36.0) g/dL RDW (12.0-15.0) % Plt Count (130-450) 10^3/uL MPV (7.9-10.8) fL Neut # (Auto) Lymph # (Auto) [place] # (Auto) Eos # (Auto) Baso # (Auto) Absolute Nucleated RBC Total Counted Band Neuts % (Manual) (0 - 10) % Abnorm Lymph % (Manual) % Nucleated RBC % Neutrophils # (Manual) (1.5-6.6) 10^3/uL Lymphocytes # (Manual) (1.5-3.5) 10^3/uL Monocytes # (Manual) (0.0-1.0) 10^3/uL Eosinophils # (Manual) (0-0.7) 10^3/uL Basophils # (Manual) (0-0.1) 10^3/uL Differential Comment WBC Morphology (NORMAL) Platelet Estimate (NORMAL) Platelet Morphology (NORMAL) RBC Morph Micro Appear (NORMAL) Sodium (135-145) mmol/L Potassium (3.5-5.0) mmol/L Chloride (101-111) mmol/L Carbon Dioxide (21-32) mmol/L Anion Gap (6-13) BUN (6-20) mg/dL Creatinine (0.4-1.0) mg/dL Estimated GFR (MDRD) (>89) Glucose (70-100) mg/dL Lactic Acid 1.1 (0.5-2.2) mmol/L Calcium (8.5-10.3) mg/dL Troponin I High Sens 118.5 H* (2.3-14.8) ng/L PTH Intact (12-88) pg/mL Urine Sodium 52.0 mmol/L 09/12/19 09/12/19 09/12/19 Range/Units 05:50 05:50 05:50 WBC (4.8-10.8) x10^3/uL RBC (4.20-5.40) 10^6/uL Hgb (12.0-16.0) g/dL Hct (37.0-47.0) % MCV (81.0-99.0) fL MCH (27.0-31.0) pg MCHC (32.0-36.0) g/dL RDW (12.0-15.0) % Plt Count (130-450) 10^3/uL MPV (7.9-10.8) fL Neut # (Auto) Lymph # (Auto) [place] # (Auto) Eos # (Auto) Baso # (Auto) Absolute Nucleated RBC Total Counted Band Neuts % (Manual) (0 - 10) % Abnorm Lymph % (Manual) % Nucleated RBC % Neutrophils # (Manual) (1.5-6.6) 10^3/uL Lymphocytes # (Manual) (1.5-3.5) 10^3/uL Monocytes # (Manual) (0.0-1.0) 10^3/uL Eosinophils # (Manual) (0-0.7) 10^3/uL Basophils # (Manual) (0-0.1) 10^3/uL Differential Comment WBC Morphology (NORMAL) Platelet Estimate (NORMAL) Platelet Morphology (NORMAL) RBC Morph Micro Appear (NORMAL) Sodium 140 (135-145) mmol/L Potassium 5.0 (3.5-5.0) mmol/L Chloride 109 (101-111) mmol/L Carbon Dioxide 23 (21-32) mmol/L Anion Gap 8.0 (6-13) BUN 36 H (6-20) mg/dL Creatinine 1.9 H (0.4-1.0) mg/dL Estimated GFR (MDRD) 25 L (>89) Glucose 109 H (70-100) mg/dL Lactic Acid (0.5-2.2) mmol/L Calcium 9.6 (8.5-10.3) mg/dL Troponin I High Sens 98.6 H* (2.3-14.8) ng/L PTH Intact 144 H (12-88) pg/mL Urine Sodium mmol/L 09/12/19 09/11/19 Range/Units 05:50 17:31 WBC 25.4 H (4.8-10.8) x10^3/uL RBC 3.99 L (4.20-5.40) 10^6/uL Hgb 11.8 L (12.0-16.0) g/dL Hct 36.7 L (37.0-47.0) % MCV 92.0 (81.0-99.0) fL MCH 29.6 (27.0-31.0) pg MCHC 32.2 (32.0-36.0) g/dL RDW 14.1 (12.0-15.0) % Plt Count 221 (130-450) 10^3/uL MPV 11.9 H (7.9-10.8) fL Neut # (Auto) Not Reportable Lymph # (Auto) Not Reportable [place] # (Auto) Not Reportable Eos # (Auto) Not Reportable Baso # (Auto) Not Reportable Absolute Nucleated RBC Not Reportable Total Counted 100 Band Neuts % (Manual) 3 (0 - 10) % Abnorm Lymph % (Manual) 0 % Nucleated RBC % Not Reportable Neutrophils # (Manual) 20.6 H (1.5-6.6) 10^3/uL Lymphocytes # (Manual) 1.8 (1.5-3.5) 10^3/uL Monocytes # (Manual) 3.0 H (0.0-1.0) 10^3/uL Eosinophils # (Manual) 0.0 (0-0.7) 10^3/uL Basophils # (Manual) 0.0 (0-0.1) 10^3/uL Differential Comment MANUAL DIFFERENTIAL WBC Morphology NORMAL APPEARANCE (NORMAL) Platelet Estimate NORMAL (130-450,000) (NORMAL) Platelet Morphology NORMAL APPEARANCE (NORMAL) RBC Morph Micro Appear NORMAL APPEARANCE (NORMAL) Sodium (135-145) mmol/L Potassium (3.5-5.0) mmol/L Chloride (101-111) mmol/L Carbon Dioxide (21-32) mmol/L Anion Gap (6-13) BUN (6-20) mg/dL Creatinine (0.4-1.0) mg/dL Estimated GFR (MDRD) (>89) Glucose (70-100) mg/dL Lactic Acid (0.5-2.2) mmol/L Calcium (8.5-10.3) mg/dL Troponin I High Sens 28.5 H* (2.3-14.8) ng/L PTH Intact (12-88) pg/mL Urine Sodium mmol/L - Diagnostic Imaging Diagnostic Imaging Results: positive: Final report reviewed Diagnostic Imaging Comments: Xray today consistent with ileus - Other Results/Comments Other Results/Comments: WBC up to 25 Lactate normal Assessment/Plan - Problem List (1) Bowel obstruction Impression: I think the picture is more consistent with ileus secondary to sepsis than with primary obstruction. There is no evidence of ischemic bowel disease. The patient's physiologic risk is prohibitive for our facility. At this point, I do not feel surgery is indicated. I would recommend transfer to a tertiary care facility if surgical intervention is desired. Qualifiers: Intestinal obstruction type: unspecified Intestinal obstruction extent: complete Qualified Code(s): K56.601 - Complete intestinal obstruction, unspecified as to cause
[2019-09-12] MEDS: metroNIDAZOLE 500 MG/100 ML 500 MG/100 ML BAG IV SCH ×2 (13:45→21:20)
[2019-09-12 14:26] LABS: CALCIUM 9.5 mg/dL (8.5-10.3)
--- NOTE | 2019-09-12 15:15 | Ultrasound Report ---
PROCEDURE: Abdomen Limited INDICATIONS: Choleithiasis. Abdominal pain. N/V. TECHNIQUE: Real-time focused scanning was performed of the abdomen, with image documentation. COMPARISON: X-ray abdomen 09/12/2019 CT abdomen and pelvis 09/11/2019 FINDINGS: Liver is normal in size. Liver is diffusely echogenic. No focal hepatic mass lesions. Multiple gallstones are noted. No gallbladder wall thickening with gallbladder wall measuring 1.8 mm. No pericholecystic fluid. No sonographic Gibson's sign. The biliary tree is nondilated. Common bile duct measures 5.6 mm. Pancreas is obscured by bowel gas and cannot be evaluated. Right kidney measures 9.8 cm in long axis. Mild right-sided hydronephrosis. IMPRESSION: 1. Cholelithiasis without sonographic evidence of cholecystitis. If there is continued clinical karyn rn for cholecystitis, a nuclear medicine scan should be considered for further evaluation. 2. Echogenic liver. Finding typically is related to hepatic steatosis, however the finding is nonspec ific and other etiologies including hepatic cirrhosis can produce a similar appearance. 3. Mild right hydronephrosis. Reviewed by: Mili Hall MD, PhD on 09/12/2019 3:14 PM PDT Approved by: Mili Hall MD, PhD on 09/12/2019 3:14 PM PDT Station ID: [id number]
[2019-09-12] MEDS: ACETAMINOPHEN 1,000 MG/100 ML 100 ML IV PRN (17:31)
[2019-09-12 20:34] LABS: CALCIUM 9.6 mg/dL (8.5-10.3); CREATININE 2.2 mg/dL (0.4-1.0)
[2019-09-13] MEDS: HYDROmorphone 0.5 MG/0.5 ML SYRINGE IVP PRN ×3 (02:55→22:47)
[2019-09-13] MEDS: LACTATED RINGERS 1,000 ML IV SCH ×3 (02:56→20:28)
[2019-09-13 04:58] LABS: BASOPHILS % (AUTO) 0.3 %; EOSINOPHILS % (AUTO) 1.3 %; HGB - HEMOGLOBIN 10.9 g/dL (12.0-16.0); LYMPHOCYTES % (AUTO) 5.8 %; MEAN CORPUSCULAR HEMOGLOBIN 28.6 pg (27.0-31.0); MEAN CORPUSCULAR HGB CONC 31.3 g/dL (32.0-36.0); MEAN CORPUSCULAR VOLUME 91.3 fL (81.0-99.0); MEAN PLATELET VOLUME 12.3 fL (7.9-10.8); MONOCYTES % (AUTO) 9.4 %; NEUTROPHILS % (AUTO) 82.2 %; PLT - PLATELET COUNT 198 10^3/uL (130-450); RED BLOOD COUNT 3.81 10^6/uL (4.20-5.40); RED CELL DISTRIBUTION WIDTH 14.6 % (12.0-15.0)
[2019-09-13 05:07] LABS: ABNORMAL LYMPHS % (MANUAL) 0 %
[2019-09-13 05:11] LABS: CALCIUM 9.8 mg/dL (8.5-10.3); CREATININE 2.4 mg/dL (0.4-1.0); MAGNESIUM 1.7 mg/dL (1.7-2.8); PHOSPHORUS 3.7 mg/dL (2.5-4.6)
[2019-09-13 05:36] LABS: BAND NEUTROPHILS % (MANUAL) 11 %; LYMPHOCYTES # (MANUAL) 3.8 10^3/uL (1.5-3.5); LYMPHOCYTES % (MANUAL) 15 %; MONOCYTES # (MANUAL) 2.3 10^3/uL (0.0-1.0)
[2019-09-13 05:37] LABS: DIFFERENTIAL COMMENT MANUAL DIFFERENTIAL; PLATELET ESTIMATE, MANUAL NORMAL (130-450,000) (NORMAL); RBC MORPHOLOGY (MULTIPLE) NORMAL APPEARANCE (NORMAL)
[2019-09-13] MEDS: PANTOPRAZOLE 40 MG VIAL IVP SCH (05:37)
[2019-09-13] MEDS: metroNIDAZOLE 500 MG/100 ML 500 MG/100 ML BAG IV SCH ×3 (05:37→22:33)
[2019-09-13] MEDS: SODIUM CHLORIDE FLUSH 0.9% 10 ML SYRINGE IVP PRN (05:38)
[2019-09-13] MEDS ORDERED: IOVERSOL 320 100 ML VIAL IVP ONE (08:18)
--- NOTE | 2019-09-13 08:46 | PROVIDER PROGRESS NOTE ---
Subjective - Prog Note Date Prog Note Date: 09/13/19 - Subjective Subjective: She appears uncomfortable in bed and open her eyes when I asked her questions but does not respond. She grimaces when I palpate her abdomen. Unable to obtain review of systems due to her lethargy. Current Medications - Current Medications Current Medications: Active Medications Hydromorphone HCl (Dilaudid Inj Syringe) 0.5 mg IVP Q3H PRN PRN Reason: Pain 8 to 10 Last Admin: 09/13/19 10:46 Dose: 0.5 mg Documented by: Lactated Ringer's (Lr) 1,000 mls @ 125 mls/hr IV .Q8H [facility] Last Infusion: 09/13/19 09:36 Dose: 125 mls/hr Documented by: Metronidazole (Flagyl 500 Mg/100 Ml) 500 mg in 100 mls @ 100 mls/hr IV Q8H [facility] Last Infusion: 09/13/19 06:42 Dose: Infused Documented by: Acetaminophen (Ofirmev) 100 mls @ 400 mls/hr IV Q6H PRN PRN Reason: Pain or Fever > 38C (100.4F) Last Infusion: 09/12/19 17:46 Dose: Infused Documented by: Cefepime HCl 1 gm/ Sodium (Chloride) 100 mls @ 200 mls/hr IV BID [facility] Last Infusion: 09/13/19 09:36 Dose: Infused Documented by: Metoprolol Tartrate (Lopressor Inj) 5 mg IVP Q6H PRN PRN Reason: Tachycardia Ondansetron HCl (Zofran Inj) 4 mg IVP Q6HR PRN PRN Reason: Nausea / Vomiting Last Admin: 09/11/19 10:36 Dose: 4 mg Documented by: Pantoprazole Sodium (Protonix) 40 mg IVP QDAC [facility] Last Admin: 09/13/19 05:37 Dose: 40 mg Documented by: Sodium Chloride (Normal Saline Flush 0.9%) 10 ml IVP PRN PRN PRN Reason: NEEDED PER PROVIDER ORDERS Last Admin: 09/13/19 05:38 Dose: 10 ml Documented by: Sodium Chloride (Normal Saline Flush 0.9%) 10 ml IVP 0100,0900,1700 [facility] Last Admin: 09/13/19 08:55 Dose: 10 ml Documented by: Ibuprofen/Diphenhydramine Cit [Eql Ibuprofen Pm Caplet] 1 tab PO QPM 05/01/19 Objective - Vital Signs/Intake & Output Reviewed Vital Signs: Yes Vital Signs: Vital Signs x48h Temp Pulse Resp BP Pulse Ox 09/13/19 07:41 97.3 C H 72 26 H 128/66 98 09/13/19 05:00 36.8 C 79 24 135/59 H 100 Intake & Output: Intake & Output 09/10/19 09/11/19 09/12/19 09/13/19 23:59 23:59 23:59 23:59 Intake Total 2630.657 4166.667 1379.166 Output Total 150 200 150 Balance 2480.657 3966.667 1229.166 - Objective General Appearance: positive: Moderate distress, Lethargic Eyes Bilateral: positive: Normal inspection, Conjunctivae nml ENT: positive: Dry mucous membranes. negative: No signs of dehydration Neck: positive: Nml inspection Respiratory: positive: No respiratory distress, Other (Diminished breath sounds bilaterally. Tachypnic.) Cardiovascular: positive: Regular rate & rhythm, No murmur. negative: Tachycardia, Bradycardia, Systolic murmur Abdomen: positive: Tenderness (Diffuse tenderness but most prominent in right lower quadrant.), Abnml bowel sounds (Hypoactive.). negative: Non-tender, Nml bowel sounds, No distention Skin: positive: Warm, Dry Extremities: positive: Full ROM, No pedal edema Neurologic/Psychiatric: positive: Other (She is very lethargic but does open her eyes when I speak to her. She is unable to follow commands.) - Lab Results Fish Bones: 09/13/19 04:30 09/13/19 04:30 Other Labs: Lab Results x24hrs 09/13/19 09/13/19 09/12/19 Range/Units 04:30 04:30 20:20 WBC 25.0 H (4.8-10.8) x10^3/uL RBC 3.81 L (4.20-5.40) 10^6/uL Hgb 10.9 L (12.0-16.0) g/dL Hct 34.8 L (37.0-47.0) % MCV 91.3 (81.0-99.0) fL MCH 28.6 (27.0-31.0) pg MCHC 31.3 L (32.0-36.0) g/dL RDW 14.6 (12.0-15.0) % Plt Count 198 (130-450) 10^3/uL MPV 12.3 H (7.9-10.8) fL Neut # (Auto) Not Reportable Lymph # (Auto) Not Reportable [place] # (Auto) Not Reportable Eos # (Auto) Not Reportable Baso # (Auto) Not Reportable Absolute Nucleated RBC Not Reportable Total Counted 100 Band Neuts % (Manual) 11 H (0 - 10) % Abnorm Lymph % (Manual) 0 % Nucleated RBC % Not Reportable Neutrophils # (Manual) 19.0 H (1.5-6.6) 10^3/uL Lymphocytes # (Manual) 3.8 H (1.5-3.5) 10^3/uL Monocytes # (Manual) 2.3 H (0.0-1.0) 10^3/uL Eosinophils # (Manual) 0.0 (0-0.7) 10^3/uL Basophils # (Manual) 0.0 (0-0.1) 10^3/uL Differential Comment MANUAL DIFFERENTIAL Platelet Estimate NORMAL (130-450,000) (NORMAL) RBC Morph Micro Appear NORMAL APPEARANCE (NORMAL) Sodium 141 139 (135-145) mmol/L Potassium 5.1 H 5.1 H (3.5-5.0) mmol/L Chloride 113 H 109 (101-111) mmol/L Carbon Dioxide 22 21 (21-32) mmol/L Anion Gap 6.0 9.0 (6-13) BUN 51 H 45 H (6-20) mg/dL Creatinine 2.4 H 2.2 H (0.4-1.0) mg/dL Estimated GFR (MDRD) 19 L 21 L (>89) Glucose 110 H 108 H (70-100) mg/dL Lactic Acid (0.5-2.2) mmol/L Calcium 9.8 9.6 (8.5-10.3) mg/dL Phosphorus 3.7 (2.5-4.6) mg/dL Magnesium 1.7 (1.7-2.8) mg/dL Troponin I High Sens (2.3-14.8) ng/L Urine Sodium mmol/L 09/12/19 09/12/19 09/12/19 Range/Units 14:07 14:07 11:03 WBC (4.8-10.8) x10^3/uL RBC (4.20-5.40) 10^6/uL Hgb (12.0-16.0) g/dL Hct (37.0-47.0) % MCV (81.0-99.0) fL MCH (27.0-31.0) pg MCHC (32.0-36.0) g/dL RDW (12.0-15.0) % Plt Count (130-450) 10^3/uL MPV (7.9-10.8) fL Neut # (Auto) Lymph # (Auto) [place] # (Auto) Eos # (Auto) Baso # (Auto) Absolute Nucleated RBC Total Counted Band Neuts % (Manual) (0 - 10) % Abnorm Lymph % (Manual) % Nucleated RBC % Neutrophils # (Manual) (1.5-6.6) 10^3/uL Lymphocytes # (Manual) (1.5-3.5) 10^3/uL Monocytes # (Manual) (0.0-1.0) 10^3/uL Eosinophils # (Manual) (0-0.7) 10^3/uL Basophils # (Manual) (0-0.1) 10^3/uL Differential Comment Platelet Estimate (NORMAL) RBC Morph Micro Appear (NORMAL) Sodium 138 (135-145) mmol/L Potassium 5.3 H (3.5-5.0) mmol/L Chloride 110 (101-111) mmol/L Carbon Dioxide 21 (21-32) mmol/L Anion Gap 7.0 (6-13) BUN 37 H (6-20) mg/dL Creatinine 2.0 H (0.4-1.0) mg/dL Estimated GFR (MDRD) 24 L (>89) Glucose 108 H (70-100) mg/dL Lactic Acid 1.1 (0.5-2.2) mmol/L Calcium 9.5 (8.5-10.3) mg/dL Phosphorus (2.5-4.6) mg/dL Magnesium (1.7-2.8) mg/dL Troponin I High Sens 106.0 H* (2.3-14.8) ng/L Urine Sodium mmol/L 09/12/19 09/12/19 Range/Units 11:03 08:38 WBC (4.8-10.8) x10^3/uL RBC (4.20-5.40) 10^6/uL Hgb (12.0-16.0) g/dL Hct (37.0-47.0) % MCV (81.0-99.0) fL MCH (27.0-31.0) pg MCHC (32.0-36.0) g/dL RDW (12.0-15.0) % Plt Count (130-450) 10^3/uL MPV (7.9-10.8) fL Neut # (Auto) Lymph # (Auto) [place] # (Auto) Eos # (Auto) Baso # (Auto) Absolute Nucleated RBC Total Counted Band Neuts % (Manual) (0 - 10) % Abnorm Lymph % (Manual) % Nucleated RBC % Neutrophils # (Manual) (1.5-6.6) 10^3/uL Lymphocytes # (Manual) (1.5-3.5) 10^3/uL Monocytes # (Manual) (0.0-1.0) 10^3/uL Eosinophils # (Manual) (0-0.7) 10^3/uL Basophils # (Manual) (0-0.1) 10^3/uL Differential Comment Platelet Estimate (NORMAL) RBC Morph Micro Appear (NORMAL) Sodium (135-145) mmol/L Potassium (3.5-5.0) mmol/L Chloride (101-111) mmol/L Carbon Dioxide (21-32) mmol/L Anion Gap (6-13) BUN (6-20) mg/dL Creatinine (0.4-1.0) mg/dL Estimated GFR (MDRD) (>89) Glucose (70-100) mg/dL Lactic Acid (0.5-2.2) mmol/L Calcium (8.5-10.3) mg/dL Phosphorus (2.5-4.6) mg/dL Magnesium (1.7-2.8) mg/dL Troponin I High Sens 118.5 H* (2.3-14.8) ng/L Urine Sodium 52.0 mmol/L ABX Reporting Has patient been on IV antibiotics over the past 48 hours?: Yes Sepsis Event Note (H) - Evaluation Current Stage of Sepsis: Severe sepsis Possible source of Sepsis: positive: Genitourinary - Sepsis Criteria Sepsis Criteria: Recorded Respiratory Rate greater than 20, WBC count greater than 10% bands, WBC count greater than 12,000 or less than 4000, [employer]: altered consciousness (unrelated to primary neuro pathology), Renal: urine output less than 0.5ml/kg/hr for 2 hours or creatinine gr Assessment/Plan - Problem List (1) Severe sepsis Impression: She is not improving from a sepsis standpoint. She is febrile yesterday evening and her white count remains elevated at 25,000 with bands present. She is also encephalopathic and has renal failure. She does remain normotensive and is not tachycardic. Suspect this is secondary to the urinary tract infection/pyelone phritis. Cultures are growing E. coli that is pansensitive. Blood cultures were not drawn on admission but were checked yesterday after she received antibiotics. These are negative to date. At this time, we will keep her on cefepime and Flagyl IV given the urinary tract infection as well as possible source of intra-abdominal infection. We will repeat a CT the abdomen pelvis without contrast today for further evaluation. Continue to trend her white count. Continue IV fluids. Her overall prognosis remains quite guarded. (2) Encephalopathy Impression: She remains quite lethargic and is unable to follow commands. This is likely related to her severe sepsis as she was quite communicative on admission. We will hold off on CT of the head as I do not suspect stroke or hemorrhage at this time. We will continue IV antibiotics treat the underlying infection. Avoid sedatives. Delirium precautions. (3) Partial small bowel obstruction Impression: There was initial concern for partial small bowel obstruction. Repeat imaging yesterday with abdominal film was more consistent with ileus. She continues to have hypoactive bowel sounds and she is quite tender on exam. We will repeat a CT of the abdomen pelvis today without contrast. Maintain n.p.o. status. Continue IV fluids. Pain control with Dilaudid IV as needed. Appreciate general surgery recommendations. (4) Acute kidney injury Impression: Suspect is likely secondary to ATN given her sepsis or contrast induced nephropathy. Her creatinine continues to rise and is now 2.4 from 1.1 on admission. Her urine sodium was greater than 50. Imaging did not reveal any obstruction but did show mild right hydronephrosis. We will repeat imaging today without contrast to ensure there is no worsening hydronephrosis or any obvious obstruction. Continue to avoid nephrotoxins. IV fluids. There is currently no acute indication for renal replacement therapy and family has stated that this would not be within the patient's interests. (5) UTI (urinary tract infection) Impression: Urine cultures growing E. coli that is pansensitive. Imaging on admission was concerning for possible pyelonephritis as well. Given her severe sepsis with fever and elevated white count, we will keep her on cefepime IV. I spoke with the step daughter, Marla, who would like me to speak with urology regarding the need for possible intervention if there is concern for obstruction. Based off of urology input, she will consider transfer to higher level of care or possibly observing here for another night and reassessing the patient clinically tomorrow. I will speak with urology at [facility] to ask them to review imaging and give us their recommendations. Qualifiers: Urinary tract infection type: acute pyelonephritis Qualified Code(s): N10 - Acute pyelonephritis (6) Elevated troponin Impression: Her troponins peaked at 118. Her EKG is not suggestive of ischemia. Echo cardiogram showed normal LV function with a EF of 60% without any significant wall motion abnormalities. She does have severe pulmonary hypertension. Suspect this is likely demand ischemia given her ongoing sepsis. (7) Chronic atrial fibrillation Impression: He remains rate controlled at this time. We will continue to monitor on telemetry given her ongoing sepsis. We will use Lopressor IV as needed for rate control as her blood pressure can tolerate this at the moment. (8) Moderate malnutrition Impression: Meets criteria for moderate malnutrition given she has had less than 50% of recommended intake for 1 week and reduced functional capacity along with weight loss. Nutrition has been consulted and appreciate recommendations. Will encourage oral intake as her mental status improves
[2019-09-13] MEDS: SODIUM CHLORIDE FLUSH 0.9% 10 ML SYRINGE IVP SCH ×2 (08:55→17:26)
[2019-09-13] MEDS: CEFEPIME 1 GM in SODIUM CHLORIDE 0.9% MINIBAG 100 ML IV SCH ×2 (09:01→20:28)
--- NOTE | 2019-09-13 09:48 | CT Report ---
PROCEDURE: Abdomen/Pelvis WO INDICATIONS: Worsening abdominal pain. Sepsis. Constipation. TECHNIQUE: Noncontrast 5 mm thick sections acquired from the diaphragms to the symphysis. 5 mm coronal and sagi ttal reformats were then performed. For radiation dose reduction, the following was used: automated exposure control, adjustment of mA and/or kV according to patient size. COMPARISON: Similar CT 04/30/2019. FINDINGS: Image quality: Significantly limited by absence of both oral and normal phase of intravenous contrast enhancement. ABDOMEN: Lung bases: Lung bases are again seen to be significantly abnormal with a generalized edema pattern potentially evidence of chronic lung disease with or without superimposed infection. Heart size is m ildly enlarged. There are slight bilateral pleural effusions Solid organs: Liver and spleen are normal in size. Gallbladder is enlarged and contains multiple ga llstones . The overall size of the gallbladder appears somewhat enlarged from the comparison study i n April of this year Pancreas is normal in contours. No adrenal nodules. Kidneys are normal in s ize, without left-sided hydronephrosis or nephrolithiasis on the right. A left-sided calculus measur ing approximately 5 mm is noted at the middle third collecting system of the left kidney, nonobstruct otto There is asymmetric prominence of the size of the right collecting system and ureter, etiology un certain. Peritoneum and bowel: Unenhanced bowel loops demonstrate normal wall thickness and caliber. No free air. Nodes and vessels: No retroperitoneal or mesenteric adenopathy by size criteria. Aorta and inferior vena cava are normal in caliber. Miscellaneous: No ventral hernias. PELVIS: Genitourinary: Bladder wall thickness is normal considering the bladder is largely emptied by a Fole y catheter.. Miscellaneous: No inguinal hernias or adenopathy. Small bowel loops within the pelvis are mildly di lated and there is a small amount of ascites within the pelvis. Bones: No suspicious bony lesions. No vertebral body compression fractures. IMPRESSION: 1. The quality of visualization is limited. The contrast present within the collecting system of the kidneys indicates that some form of contrast was administered but the timing appears significantly in sufficient for clear visualization of the solid organs. Hydronephrosis appears to have developed, mil d in overall severity, on the right but no hydronephrosis is seen on the left. 2. The ureter on the right is dilated to the pelvis level but contains contrast and a calculus is the refore not visible if one is present within the distal right ureter. 3. The gallbladder is distended, and contains multiple moderate and moderately large stones. The gall bladder was relatively large also in April of this year and also contains stones. Sonographic asse ssment for gallbladder wall thickening and focal tenderness likely is warranted. 4. There is a chronic lung disease pattern very similar to that present in April of this year, wit h a generalized alveolar edema pattern of indeterminate etiology. This could, for example, represent cardiogenic pulmonary edema, ARDS, and even an alveolar manifestation of idiopathic pulmonary alveoli tis/fibrosis. 3. Small bowel loops within the pelvis are mildly dilated. A Byrne catheter empties the bladder lumen . No definite abscess seen throughout the abdomen or pelvis. 5. Mild ascites, minimal bilateral pleural effusions. Incidental note is made of a nonobstructive 5 m m calculus mid left kidney. Reviewed by: Lance Esteban MD on 09/13/2019 9:46 AM PDT Approved by: Lance Esteban MD on 09/13/2019 9:46 AM PDT Station ID: [id number]
[2019-09-14] MEDS: LACTATED RINGERS 1,000 ML IV SCH ×3 (05:32→20:03)
[2019-09-14] MEDS: metroNIDAZOLE 500 MG/100 ML 500 MG/100 ML BAG IV SCH ×3 (05:34→21:27)
[2019-09-14 05:48] LABS: BASOPHILS % (AUTO) 0.3 %; EOSINOPHILS % (AUTO) 0.5 %; HGB - HEMOGLOBIN 10.6 g/dL (12.0-16.0); LYMPHOCYTES % (AUTO) 5.2 %; MEAN CORPUSCULAR HEMOGLOBIN 29.9 pg (27.0-31.0); MEAN CORPUSCULAR HGB CONC 32.5 g/dL (32.0-36.0); MEAN CORPUSCULAR VOLUME 92.1 fL (81.0-99.0); MEAN PLATELET VOLUME 12.4 fL (7.9-10.8); MONOCYTES % (AUTO) 6.5 %; NEUTROPHILS % (AUTO) 85.9 %; PLT - PLATELET COUNT 189 10^3/uL (130-450); RED BLOOD COUNT 3.54 10^6/uL (4.20-5.40); RED CELL DISTRIBUTION WIDTH 14.6 % (12.0-15.0); WHITE BLOOD COUNT 20.9 x10^3/uL (4.8-10.8)
[2019-09-14 05:55] LABS: CALCIUM 9.7 mg/dL (8.5-10.3); CREATININE 1.8 mg/dL (0.4-1.0); MAGNESIUM 1.7 mg/dL (1.7-2.8); PHOSPHORUS 2.8 mg/dL (2.5-4.6)
[2019-09-14 06:13] LABS: ABNORMAL LYMPHS % (MANUAL) 1 %; BAND NEUTROPHILS % (MANUAL) 1 %; LYMPHOCYTES # (MANUAL) 1.7 10^3/uL (1.5-3.5); LYMPHOCYTES % (MANUAL) 7 %; MONOCYTES # (MANUAL) 0.6 10^3/uL (0.0-1.0); RBC MORPHOLOGY (MULTIPLE) 1+ ANISOCYTOSIS (NORMAL)
[2019-09-14 06:14] LABS: DIFFERENTIAL COMMENT MANUAL DIFFERENTIAL; PLATELET ESTIMATE, MANUAL NORMAL (130-450,000) (NORMAL); PLATELET MORPHOLOGY NORMAL APPEARANCE (NORMAL)
[2019-09-14] MEDS: SODIUM CHLORIDE FLUSH 0.9% 10 ML SYRINGE IVP SCH ×3 (06:41→16:12)
[2019-09-14] MEDS: PANTOPRAZOLE 40 MG VIAL IVP SCH (06:41)
--- NOTE | 2019-09-14 07:33 | PROVIDER PROGRESS NOTE ---
Subjective - Prog Note Date Prog Note Date: 09/14/19 - Subjective Subjective: She is still quite lethargic but appears a little bit more alert today. She still does not respond to questions. She grimaces to abdominal palpation but this appears improved compared to yesterday. Awaiting arrival of her stepdaughter. Current Medications - Current Medications Current Medications: Active Medications Hydromorphone HCl (Dilaudid Inj Syringe) 0.5 mg IVP Q3H PRN PRN Reason: Pain 8 to 10 Last Admin: 09/13/19 22:47 Dose: 0.5 mg Documented by: Metronidazole (Flagyl 500 Mg/100 Ml) 500 mg in 100 mls @ 100 mls/hr IV Q8H [facility] Last Infusion: 09/14/19 06:34 Dose: Infused Documented by: Acetaminophen (Ofirmev) 100 mls @ 400 mls/hr IV Q6H PRN PRN Reason: Pain or Fever > 38C (100.4F) Last Infusion: 09/12/19 17:46 Dose: Infused Documented by: Cefepime HCl 1 gm/ Sodium (Chloride) 100 mls @ 200 mls/hr IV BID [facility] Last Infusion: 09/14/19 10:42 Dose: Infused Documented by: Lactated Ringer's (Lr) 1,000 mls @ 75 mls/hr IV .[id number] [facility] Last Admin: 09/14/19 10:41 Dose: 75 mls/hr Documented by: Metoprolol Tartrate (Lopressor Inj) 5 mg IVP Q6H PRN PRN Reason: Tachycardia Ondansetron HCl (Zofran Inj) 4 mg IVP Q6HR PRN PRN Reason: Nausea / Vomiting Last Admin: 09/11/19 10:36 Dose: 4 mg Documented by: Pantoprazole Sodium (Protonix) 40 mg IVP QDAC [facility] Last Admin: 09/14/19 06:41 Dose: 40 mg Documented by: Sodium Chloride (Normal Saline Flush 0.9%) 10 ml IVP PRN PRN PRN Reason: NEEDED PER PROVIDER ORDERS Last Admin: 09/13/19 05:38 Dose: 10 ml Documented by: Sodium Chloride (Normal Saline Flush 0.9%) 10 ml IVP 0100,0900,1700 [facility] Last Admin: 09/14/19 07:59 Dose: Not Given Documented by: Ibuprofen/Diphenhydramine Cit [Eql Ibuprofen Pm Caplet] 1 tab PO QPM 05/01/19 Objective - Vital Signs/Intake & Output Reviewed Vital Signs: Yes Vital Signs: Vital Signs x48h Temp Pulse Resp BP Pulse Ox 09/14/19 04:18 37.1 C 79 18 133/67 H 97 09/13/19 23:51 94 09/13/19 23:42 37.6 C H 90 22 139/66 H 92 Intake & Output: Intake & Output 09/11/19 09/12/19 09/13/19 09/14/19 23:59 23:59 23:59 23:59 Intake Total 2630.657 4166.667 2989.583 1104.167 Output Total 150 200 540 225 Balance 2480.657 3966.667 2449.583 879.167 - Objective General Appearance: positive: Mild distress, Lethargic Eyes Bilateral: positive: PERRL, Conjunctivae nml ENT: positive: Dry mucous membranes Neck: positive: Nml inspection Respiratory: positive: Other (She is tachypneic. Diminished breath sounds bilaterally.) Cardiovascular: positive: Irregularly irregular. negative: Tachycardia, Bradycardia, Systolic murmur Abdomen: positive: Tenderness (She is boom tender to palpation but this appears decreased compared to yesterday.), Abnml bowel sounds (Hypoactive.). negative: Guarding, Rebound Skin: positive: Warm, Dry Extremities: positive: No pedal edema Neurologic/Psychiatric: positive: Other (She does not respond to commands but opens her eyes when spoken to.) - Lab Results Fish Bones: 09/14/19 05:25 09/14/19 05:25 Other Labs: Lab Results x24hrs 09/14/19 09/14/19 Range/Units 05:25 05:25 WBC 20.9 H (4.8-10.8) x10^3/uL RBC 3.54 L (4.20-5.40) 10^6/uL Hgb 10.6 L (12.0-16.0) g/dL Hct 32.6 L (37.0-47.0) % MCV 92.1 (81.0-99.0) fL MCH 29.9 (27.0-31.0) pg MCHC 32.5 (32.0-36.0) g/dL RDW 14.6 (12.0-15.0) % Plt Count 189 (130-450) 10^3/uL MPV 12.4 H (7.9-10.8) fL Neut # (Auto) Not Reportable Lymph # (Auto) Not Reportable [place] # (Auto) Not Reportable Eos # (Auto) Not Reportable Baso # (Auto) Not Reportable Absolute Nucleated RBC Not Reportable Total Counted 100 Band Neuts % (Manual) 1 (0 - 10) % Abnorm Lymph % (Manual) 1 % Nucleated RBC % Not Reportable Neutrophils # (Manual) 18.6 H (1.5-6.6) 10^3/uL Lymphocytes # (Manual) 1.7 (1.5-3.5) 10^3/uL Monocytes # (Manual) 0.6 (0.0-1.0) 10^3/uL Eosinophils # (Manual) 0.0 (0-0.7) 10^3/uL Basophils # (Manual) 0.0 (0-0.1) 10^3/uL Differential Comment MANUAL DIFFERENTIAL WBC Morphology NORMAL APPEARANCE (NORMAL) Platelet Estimate NORMAL (130-450,000) (NORMAL) Platelet Morphology NORMAL APPEARANCE (NORMAL) RBC Morph Micro Appear 1+ ANISOCYTOSIS (NORMAL) Sodium 141 (135-145) mmol/L Potassium 4.2 (3.5-5.0) mmol/L Chloride 113 H (101-111) mmol/L Carbon Dioxide 21 (21-32) mmol/L Anion Gap 7.0 (6-13) BUN 51 H (6-20) mg/dL Creatinine 1.8 H (0.4-1.0) mg/dL Estimated GFR (MDRD) 27 L (>89) Glucose 95 (70-100) mg/dL Calcium 9.7 (8.5-10.3) mg/dL Phosphorus 2.8 (2.5-4.6) mg/dL Magnesium 1.7 (1.7-2.8) mg/dL ABX Reporting Has patient been on IV antibiotics over the past 48 hours?: Yes Sepsis Event Note (H) - Evaluation Current Stage of Sepsis: Severe sepsis Possible source of Sepsis: positive: Genitourinary - Sepsis Criteria Sepsis Criteria: Recorded Respiratory Rate greater than 20, WBC count greater than 10% bands, WBC count greater than 12,000 or less than 4000, VINYL CUTTER: altered consciousness (unrelated to primary neuro pathology), Renal: urine output less than 0.5ml/kg/hr for 2 hours or creatinine gr Assessment/Plan - Problem List (1) Severe sepsis Impression: She appears to be improving from a sepsis standpoint. Her white count has decreased today and she has been afebrile for the past 24 hours. Urine cultures growing pansensitive E. coli. Blood cultures were drawn after initial administration of antibiotics but these are also negative to date. She is also remained normotensive. Her renal function is also improving but she continues to remain encephalopathic. We will keep her on IV cefepime for the time being. We will also continue with Flagyl IV in case there is also an intra-abdominal infection although this has not been evident to date. Continue to trend her CBC. (2) Encephalopathy Impression: Suspect this secondary to her sepsis and urinary tract infection. She appears to be clinically improving from a sepsis standpoint but she may encephalopathic this morning although slightly improved compared to yesterday. Given her slow improvement, we will check a CT of the head today and an ammonia. We will continue IV antibiotics to treat the underlying sepsis. (3) Partial small bowel obstruction Impression: This was concern on admission but repeat imaging suggest enteritis/ileus. She continues have hypoactive bowel sounds and has not had a bowel movement. She is still quite lethargic and unable to take p.o. but once she has, we will start her on a clear liquid diet as tolerated. We will repeat abdominal x-ray if she does not have a bowel movement today. Appreciate general surgery recommendations. (4) Acute kidney injury Impression: Suspect secondary to sepsis and likely contrast induced nephropathy. Her creatinine has plateaued at 2.4 and today it has improved to 1.8. Her urine output is also increasing. He will continue with IV hydration. Monitor renal function and urine output. Avoid nephrotoxins. (5) UTI (urinary tract infection) Impression: The source of her sepsis. She appears be clinically improving given she has been afebrile with a decreasing white count. Urine culture is growing E. coli and blood cultures are negative to date. Given that she still remains quite ill, we will keep her on cefepime IV for the time being. Will de-escalate to oral antibiotics as she improves from a neurologic standpoint. Qualifiers: Urinary tract infection type: acute pyelonephritis Qualified Code(s): N10 - Acute pyelonephritis (6) Elevated troponin Impression: Troponins peaked in the 100s. This was likely demand ischemia given her sepsis and her EKG did not show signs of ischemia and her echocardiogram showed preserved ejection fraction without any wall motion abnormalities. (7) Chronic atrial fibrillation Impression: She remains rate controlled at this time. Has not required any IV Lopressor. Will continue IV Lopressor as needed. (8) Moderate malnutrition Impression: She remains n.p.o. given her neurologic status and the ileus/early obstruction. We will start her on clear liquid diet as her mentation improves. We will need to consider TPN over next day or 2 if she is unable to tolerate oral intake. Appreciate nutrition input.
[2019-09-14] MEDS: CEFEPIME 1 GM in SODIUM CHLORIDE 0.9% MINIBAG 100 ML IV SCH ×2 (07:59→20:40)
--- NOTE | 2019-09-14 09:56 | CT Report ---
PROCEDURE: HEAD WO INDICATIONS: Encephalopathy TECHNIQUE: Noncontrast 4.5 mm thick angled axial sections acquired from the foramen magnum to the vertex. For r adiation dose reduction, the following was used: automated exposure control, adjustment of mA and/or kV according to patient size. COMPARISON: 04/30/2019. FINDINGS: Image quality: Excellent. CSF spaces: Ventricular system and basilar cisterns are patent. No abnormal extra axial fluid collect ion. Brain: There is global cerebral volume loss with passive expansion of the ventricles and extra-axial spaces. Extensive patchy and confluent white matter hypodensity in posterior both hemispheres similar to the prior study, consistent with chronic vascular ischemic change. There is no loss of phillip-white matter differentiation to indicate acute infarct. No evidence of mass effect or midline shift. No ev idence of acute intracranial hemorrhage. Skull and face: No acute or suspicious osseous lesion. Right intraocular lens replacement. Orbital st ructures otherwise unremarkable. Sinuses: Mucous retention cyst in the left maxillary sinus. Remaining paranasal sinuses and mastoid a ir cells are clear where visualized. IMPRESSION: No acute intracranial finding. Age-related global cerebral volume loss and chronic micro vascular ischemic changes, similar to 04/30/2019 exam. Reviewed by: Gary Huggins MD on 09/14/2019 9:55 AM PDT Approved by: Gary Huggins MD on 09/14/2019 9:55 AM PDT Station ID: [id number]
[2019-09-14 17:02] LABS: ABG PH 7.43 (7.35-7.45)
[2019-09-14 17:03] LABS: ABG BASE EXCESS -3.9 mmol/L (-2.0-3.0); ABG HCO3 19.4 mmol/L (22.0-26.0); ABG OXYGEN SATURATION 91 % (94-98); ABG PCO2 30 mmHg (34-45); ABG PO2 60 mmHg (80-100); ABG TCO2 20.3 MMOL/L (21.0-29.0); ALLEN TEST POSITIVE
[2019-09-14] MEDS: ACETAMINOPHEN 1,000 MG/100 ML 100 ML IV PRN (20:01)
[2019-09-15 05:32] LABS: BASOPHILS % (AUTO) 0.4 %; HGB - HEMOGLOBIN 10.6 g/dL (12.0-16.0); LYMPHOCYTES % (AUTO) 4.7 %; MEAN CORPUSCULAR HEMOGLOBIN 29.5 pg (27.0-31.0); MEAN CORPUSCULAR HGB CONC 31.7 g/dL (32.0-36.0); MEAN PLATELET VOLUME 11.9 fL (7.9-10.8); MONOCYTES % (AUTO) 6.3 %; NEUTROPHILS % (AUTO) 87.9 %; PLT - PLATELET COUNT 194 10^3/uL (130-450); RED BLOOD COUNT 3.59 10^6/uL (4.20-5.40); RED CELL DISTRIBUTION WIDTH 14.6 % (12.0-15.0); WHITE BLOOD COUNT 24.5 x10^3/uL (4.8-10.8)
[2019-09-15 05:34] LABS: ABNORMAL LYMPHS % (MANUAL) 0 %
[2019-09-15 05:41] LABS: CALCIUM 9.9 mg/dL (8.5-10.3); CREATININE 1.5 mg/dL (0.4-1.0); MAGNESIUM 1.8 mg/dL (1.7-2.8); PHOSPHORUS 2.6 mg/dL (2.5-4.6)
[2019-09-15] MEDS: SODIUM CHLORIDE FLUSH 0.9% 10 ML SYRINGE IVP SCH ×3 (05:59→18:09)
[2019-09-15] MEDS: PANTOPRAZOLE 40 MG VIAL IVP SCH (05:59)
[2019-09-15] MEDS: metroNIDAZOLE 500 MG/100 ML 500 MG/100 ML BAG IV SCH ×3 (05:59→22:03)
[2019-09-15 06:17] LABS: BAND NEUTROPHILS % (MANUAL) 3 %; LYMPHOCYTES # (MANUAL) 1.7 10^3/uL (1.5-3.5); LYMPHOCYTES % (MANUAL) 7 %
[2019-09-15 06:18] LABS: DIFFERENTIAL COMMENT MANUAL DIFFERENTIAL; PLATELET ESTIMATE, MANUAL NORMAL (130-450,000) (NORMAL); PLATELET MORPHOLOGY NORMAL APPEARANCE (NORMAL); RBC MORPHOLOGY (MULTIPLE) NORMAL APPEARANCE (NORMAL)
--- NOTE | 2019-09-15 08:49 | PROVIDER PROGRESS NOTE ---
Subjective - Prog Note Date Prog Note Date: 09/15/19 - Subjective Subjective: She is more alert this morning but still lethargic. She is able to say a few words. She still has some abdominal pain. Current Medications - Current Medications Current Medications: Active Medications Hydromorphone HCl (Dilaudid Inj Syringe) 0.5 mg IVP Q3H PRN PRN Reason: Pain 8 to 10 Last Admin: 09/13/19 22:47 Dose: 0.5 mg Documented by: Metronidazole (Flagyl 500 Mg/100 Ml) 500 mg in 100 mls @ 100 mls/hr IV Q8H [facility] Last Admin: 09/15/19 05:59 Dose: 100 mls/hr Documented by: Acetaminophen (Ofirmev) 100 mls @ 400 mls/hr IV Q6H PRN PRN Reason: Pain or Fever > 38C (100.4F) Last Infusion: 09/14/19 20:16 Dose: Infused Documented by: Cefepime HCl 1 gm/ Sodium (Chloride) 100 mls @ 200 mls/hr IV BID [facility] Last Infusion: 09/14/19 21:10 Dose: Infused Documented by: Lactated Ringer's (Lr) 1,000 mls @ 75 mls/hr IV .[id number] [facility] Last Admin: 09/14/19 20:03 Dose: 75 mls/hr Documented by: Metoprolol Tartrate (Lopressor Inj) 5 mg IVP Q6H PRN PRN Reason: Tachycardia Ondansetron HCl (Zofran Inj) 4 mg IVP Q6HR PRN PRN Reason: Nausea / Vomiting Last Admin: 09/11/19 10:36 Dose: 4 mg Documented by: Pantoprazole Sodium (Protonix) 40 mg IVP QDAC [facility] Last Admin: 09/15/19 05:59 Dose: 40 mg Documented by: Sodium Chloride (Normal Saline Flush 0.9%) 10 ml IVP PRN PRN PRN Reason: NEEDED PER PROVIDER ORDERS Last Admin: 09/13/19 05:38 Dose: 10 ml Documented by: Sodium Chloride (Normal Saline Flush 0.9%) 10 ml IVP 0100,0900,1700 [facility] Last Admin: 09/15/19 05:59 Dose: 10 ml Documented by: Ibuprofen/Diphenhydramine Cit [Eql Ibuprofen Pm Caplet] 1 tab PO QPM 05/01/19 Objective - Vital Signs/Intake & Output Reviewed Vital Signs: Yes Vital Signs: Vital Signs x48h Temp Pulse Resp BP Pulse Ox 09/15/19 04:26 36.8 C 82 22 132/59 H 97 Intake & Output: Intake & Output 09/12/19 09/13/19 09/14/19 09/15/19 23:59 23:59 23:59 23:59 Intake Total 4166.667 2989.583 2779.834 Output Total 200 540 925 150 Balance 3966.667 2449.583 1854.834 -150 - Objective General Appearance: positive: Mild distress, Lethargic, Other (She is more alert this morning is able to speak a few words but she still overall lethargic and appears to be in some distress.) Eyes Bilateral: positive: Normal inspection ENT: positive: Dry mucous membranes Neck: positive: Nml inspection Respiratory: positive: No respiratory distress. negative: Wheezes, Rales Cardiovascular: positive: No murmur, Irregularly irregular. 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 and the right lower quadrant but this continues to improve.), Abnml bowel sounds (Hypoactive) Skin: positive: Warm, Dry, Laceration (cm) - Lab Results Fish Bones: 09/15/19 05:10 09/15/19 15:20 Other Labs: Lab Results x24hrs 09/15/19 09/15/19 09/14/19 Range/Units 05:10 05:10 16:55 WBC 24.5 H (4.8-10.8) x10^3/uL RBC 3.59 L (4.20-5.40) 10^6/uL Hgb 10.6 L (12.0-16.0) g/dL Hct 33.4 L (37.0-47.0) % MCV 93.0 (81.0-99.0) fL MCH 29.5 (27.0-31.0) pg MCHC 31.7 L (32.0-36.0) g/dL RDW 14.6 (12.0-15.0) % Plt Count 194 (130-450) 10^3/uL MPV 11.9 H (7.9-10.8) fL Neut # (Auto) Not Reportable Lymph # (Auto) Not Reportable [place] # (Auto) Not Reportable Eos # (Auto) Not Reportable Baso # (Auto) Not Reportable Absolute Nucleated RBC Not Reportable Total Counted 100 Band Neuts % (Manual) 3 (0 - 10) % Abnorm Lymph % (Manual) 0 % Nucleated RBC % Not Reportable Neutrophils # (Manual) 20.8 H (1.5-6.6) 10^3/uL Lymphocytes # (Manual) 1.7 (1.5-3.5) 10^3/uL Monocytes # (Manual) 2.0 H (0.0-1.0) 10^3/uL Eosinophils # (Manual) 0.0 (0-0.7) 10^3/uL Basophils # (Manual) 0.0 (0-0.1) 10^3/uL Differential Comment MANUAL DIFFERENTIAL WBC Morphology NORMAL APPEARANCE (NORMAL) Platelet Estimate NORMAL (130-450,000) (NORMAL) Platelet Morphology NORMAL APPEARANCE (NORMAL) RBC Morph Micro Appear NORMAL APPEARANCE (NORMAL) Bld Gas Analysis Time 1704 Sample Site RIGHT RADIAL ABG pH 7.43 (7.35-7.45) ABG pCO2 30 L (34-45) mmHg ABG pO2 60 L (80-100) mmHg ABG HCO3 19.4 L (22.0-26.0) mmol/L ABG Total CO2 20.3 L (21.0-29.0) MMOL/L ABG O2 Saturation 91 L (94-98) % ABG Base Excess -3.9 L (-2.0-3.0) mmol/L Nimesh Test POSITIVE Room Air YES Sodium 142 (135-145) mmol/L Potassium 3.5 (3.5-5.0) mmol/L Chloride 115 H (101-111) mmol/L Carbon Dioxide 20 L (21-32) mmol/L Anion Gap 7.0 (6-13) BUN 59 H (6-20) mg/dL Creatinine 1.5 H (0.4-1.0) mg/dL Estimated GFR (MDRD) 33 L (>89) Glucose 98 (70-100) mg/dL Calcium 9.9 (8.5-10.3) mg/dL Phosphorus 2.6 (2.5-4.6) mg/dL Magnesium 1.8 (1.7-2.8) mg/dL Ammonia (7-35) umol/L 09/14/19 Range/Units 09:14 WBC (4.8-10.8) x10^3/uL RBC (4.20-5.40) 10^6/uL Hgb (12.0-16.0) g/dL Hct (37.0-47.0) % MCV (81.0-99.0) fL MCH (27.0-31.0) pg MCHC (32.0-36.0) g/dL RDW (12.0-15.0) % Plt Count (130-450) 10^3/uL MPV (7.9-10.8) fL Neut # (Auto) Lymph # (Auto) [place] # (Auto) Eos # (Auto) Baso # (Auto) Absolute Nucleated RBC Total Counted Band Neuts % (Manual) (0 - 10) % Abnorm Lymph % (Manual) % Nucleated RBC % Neutrophils # (Manual) (1.5-6.6) 10^3/uL Lymphocytes # (Manual) (1.5-3.5) 10^3/uL Monocytes # (Manual) (0.0-1.0) 10^3/uL Eosinophils # (Manual) (0-0.7) 10^3/uL Basophils # (Manual) (0-0.1) 10^3/uL Differential Comment WBC Morphology (NORMAL) Platelet Estimate (NORMAL) Platelet Morphology (NORMAL) RBC Morph Micro Appear (NORMAL) Bld Gas Analysis Time Sample Site ABG pH (7.35-7.45) ABG pCO2 (34-45) mmHg ABG pO2 (80-100) mmHg ABG HCO3 (22.0-26.0) mmol/L ABG Total CO2 (21.0-29.0) MMOL/L ABG O2 Saturation (94-98) % ABG Base Excess (-2.0-3.0) mmol/L Nimesh Test Room Air Sodium (135-145) mmol/L Potassium (3.5-5.0) mmol/L Chloride (101-111) mmol/L Carbon Dioxide (21-32) mmol/L Anion Gap (6-13) BUN (6-20) mg/dL Creatinine (0.4-1.0) mg/dL Estimated GFR (MDRD) (>89) Glucose (70-100) mg/dL Calcium (8.5-10.3) mg/dL Phosphorus (2.5-4.6) mg/dL Magnesium (1.7-2.8) mg/dL Ammonia 20.9 (7-35) umol/L ABX Reporting Has patient been on IV antibiotics over the past 48 hours?: Yes Sepsis Event Note (H) - Evaluation Current Stage of Sepsis: Severe sepsis Possible source of Sepsis: positive: Genitourinary - Sepsis Criteria Sepsis Criteria: Recorded Respiratory Rate greater than 20, WBC count greater than 10% bands, WBC count greater than 12,000 or less than 4000, CLINICAL DATA ABSTRACTOR: altered consciousness (unrelated to primary neuro pathology), Renal: urine output less than 0.5ml/kg/hr for 2 hours or creatinine gr Assessment/Plan - Problem List (1) Encephalopathy Impression: CT the head was unremarkable yesterday and her ammonia is within normal limits. ABG did not reveal hypercapnia. Suspect is likely related to her sepsis and ongoing infection. She is a bit more alert today was able to speak a few words which is improvement compared to the past couple of days. We will continue IV hydration and IV antibiotics due to underlying infection. I spoke with family to discuss her overall condition. They would like to continue with current medical therapy and assess her overall condition on daily basis. Her stepdaughter, Marla is happy that her mood status is improving and she is hopeful that she will continue to show signs of progress. She is aware that her overall prognosis is quite guarded. (2) Severe sepsis Impression: She remains afebrile but her white count has increased today to nearly 25,000. Blood cultures are negative to date but these were drawn after she had received IV antibiotics. Urine cultures growing E. coli that is pansensitive. There are no other obvious sources of infection. (3) Partial small bowel obstruction Impression: Repeat abdominal x-ray today which showed no any dilated loops of small bowel which appears improved compared to prior imaging. She still has hypoactive bowel sounds. Doubt this is an obstruction at this point in time. We will start her on a clear liquid diet as tolerated. If she is unable to take p.o. due to mental status we will need to start her on PPN. (4) UTI (urinary tract infection) Impression: Urine cultures grew pansensitive E. coli. She remains on IV antibiotics for the UTI. Blood cultures have been negative to date but this was obtained after she had received IV antibiotics. We will treat her for at least 10 days. Will transition to oral antibiotics when her white count improves as well as her ment al status. Qualifiers: Urinary tract infection type: acute pyelonephritis Qualified Code(s): N10 - Acute pyelonephritis (5) Acute kidney injury Impression: This was likely secondary to contrast-induced nephropathy. Her renal function continues to improve and her creatinine is down to 1.5 today. We will continue with IV hydration. Monitor renal function urine output. Continue to avoid nephrotoxins. (6) Chronic atrial fibrillation Impression: She remains rate controlled at this time without the use of Metoprolol. She is on anticoagulation due to falls. Continue Lopressor IV as needed. (7) Moderate malnutrition Impression: She is not been n.p.o. throughout this hospitalization. Her mental status has slightly improved she will try a clear liquid diet but if she if she is unable to tolerate oral intake we will need to start PPN today. Appreciate nutrition input. (8) Elevated troponin Impression: This was demand ischemia given the sepsis and acute renal failure.
[2019-09-15] MEDS: CEFEPIME 1 GM in SODIUM CHLORIDE 0.9% MINIBAG 100 ML IV SCH ×2 (10:08→21:19)
--- NOTE | 2019-09-15 10:15 | XRAY Report ---
PROCEDURE: Abdomen 1 View X-Ray INDICATIONS: Follow up ileus. TECHNIQUE: 1 view of the abdomen were acquired. COMPARISON: CT abdomen pelvis 09/13/2019 FINDINGS: Surgical changes and devices: None. Bowel: No pneumoperitoneum. The bowel gas pattern demonstrates mild scattered loops of mildly promin ent bowel. It appears overall less prominent when compared to prior exam. Soft tissues: No masses; visualized solid organ contours appear normal in size. Calcifications are n oted overlying the right upper quadrant consistent with gallstones on CT exam. Bones: No suspicious bony abnormalities. IMPRESSION: Persistent, minimally dilated loops of small bowel although improved compared to prior e xam. Reviewed by: Shakila Guo MD on 09/15/2019 10:14 AM PDT Approved by: Shakila Guo MD on 09/15/2019 10:14 AM PDT Station ID: [id number]
[2019-09-15] MEDS: LACTATED RINGERS 1,000 ML IV SCH (12:22)
[2019-09-15] MEDS: HYDROmorphone 0.5 MG/0.5 ML SYRINGE IVP PRN (12:29)
[2019-09-15 15:40] LABS: CALCIUM 9.6 mg/dL (8.5-10.3); CREATININE 1.4 mg/dL (0.4-1.0); MAGNESIUM 1.9 mg/dL (1.7-2.8)
[2019-09-15] MEDS ORDERED: POTASSIUM CHLOR 10 MEQ/100 ML 10 MEQ/100 ML BAG IV SCH (17:00)
[2019-09-15] MEDS ORDERED: FAT EMULSION 20% 250 ML IV SCH (19:00)
[2019-09-15] MEDS ORDERED: PPN (CLINIMIX E 4.25/5) 2,000 ML with MULTIVITAMIN 10 ML, TRACE ELEMENTS V CONC 1 ML IV SCH ×3 (19:00)
[2019-09-15] MEDS ORDERED: [UNRECOGNIZED DRUG - OTHER] IV SCH ×4 (19:00)
[2019-09-15] MEDS ORDERED: TRACE ELEMENTS V IV SCH ×4 (19:00)
[2019-09-15] MEDS ORDERED: PPN IV SCH ×4 (19:00)
[2019-09-15] MEDS ORDERED: MULTIVITAMIN IV SCH ×4 (19:00)
[2019-09-15] MEDS: HEPARIN 5,000 UNIT/ML VIAL SUBQ SCH (21:19)
[2019-09-16] MEDS: SODIUM CHLORIDE FLUSH 0.9% 10 ML SYRINGE IVP SCH ×3 (00:24→18:18)
[2019-09-16 05:54] LABS: BASOPHILS # (AUTO) 0.1 10^3/uL (0.0-0.1); BASOPHILS % (AUTO) 0.5 %; EOSINOPHILS # (AUTO) 0.1 10^3/uL (0.0-0.7); EOSINOPHILS % (AUTO) 0.2 %; HGB - HEMOGLOBIN 10.5 g/dL (12.0-16.0); LYMPHOCYTES # (AUTO) 1.5 10^3/uL (1.5-3.5); LYMPHOCYTES % (AUTO) 6.1 %; MEAN CORPUSCULAR HEMOGLOBIN 28.8 pg (27.0-31.0); MEAN CORPUSCULAR HGB CONC 31.7 g/dL (32.0-36.0); MEAN CORPUSCULAR VOLUME 90.9 fL (81.0-99.0); MEAN PLATELET VOLUME 11.9 fL (7.9-10.8); MONOCYTES # (AUTO) 1.5 10^3/uL (0.0-1.0); MONOCYTES % (AUTO) 6.1 %; NEUTROPHILS # (AUTO) 20.4 10^3/uL (1.5-6.6); NEUTROPHILS % (AUTO) 85.1 %; PLT - PLATELET COUNT 221 10^3/uL (130-450); RED BLOOD COUNT 3.64 10^6/uL (4.20-5.40); RED CELL DISTRIBUTION WIDTH 14.8 % (12.0-15.0)
[2019-09-16 06:06] LABS: ALBUMIN 2.5 g/dL (3.2-5.5); ALBUMIN/GLOBULIN RATIO 0.9 (1.0-2.2); BILIRUBIN,TOTAL 1.4 mg/dL (0.2-1.0); CALCIUM 9.6 mg/dL (8.5-10.3); CREATININE 1.2 mg/dL (0.4-1.0); PHOSPHORUS 1.6 mg/dL (2.5-4.6); TOTAL PROTEIN 5.3 g/dL (6.7-8.2)
[2019-09-16] MEDS: PANTOPRAZOLE 40 MG VIAL IVP SCH (06:24)
[2019-09-16] MEDS: metroNIDAZOLE 500 MG/100 ML 500 MG/100 ML BAG IV SCH (06:24)
--- NOTE | 2019-09-16 07:53 | PROVIDER PROGRESS NOTE ---
Subjective - Prog Note Date Prog Note Date: 09/16/19 - Subjective Subjective: She continues to complain of abdominal pain. She is slightly more alert this morning is able to speak a few words and nod. Her stepdaughter is present at bedside. I asked the patient if she would want any procedures or surgical interventions if it may help treat her current infection and the patient nodded no. I asked her if she would like to focus predominantly on her comfort and just treating her pain only and she nodded yes. Current Medications - Current Medications Current Medications: Active Medications Heparin Sodium (Porcine) () 5,000 unit SUBQ BID [facility] Last Admin: 09/16/19 10:52 Dose: 5,000 unit Documented by: Hydromorphone HCl (Dilaudid Inj Syringe) 0.5 mg IVP Q3H PRN PRN Reason: Pain 8 to 10 Last Admin: 09/16/19 08:27 Dose: 0.5 mg Documented by: Metronidazole (Flagyl 500 Mg/100 Ml) 500 mg in 100 mls @ 100 mls/hr IV Q8H [facility] Last Infusion: 09/16/19 07:32 Dose: Infused Documented by: Acetaminophen (Ofirmev) 100 mls @ 400 mls/hr IV Q6H PRN PRN Reason: Pain or Fever > 38C (100.4F) Last Infusion: 09/14/19 20:16 Dose: Infused Documented by: Cefepime HCl 1 gm/ Sodium (Chloride) 100 mls @ 200 mls/hr IV BID [facility] Last Admin: 09/16/19 08:28 Dose: 200 mls/hr Documented by: Fat Emulsion Intravenous (Intralipid 20%) 250 mls @ 21 mls/hr IV Q24H [facility] Last Infusion: 09/16/19 07:00 Dose: Infused Documented by: Multivitamins 10 ml/ Chromium/Copper/Manganese/Seleni/Zn 1 ml/ Potassium Chloride 50 meq/Amino Acids/Electrolytes/Dextrose 2,036 mls @ 63 mls/hr IV Q24H [facility]; Protocol Last Admin: 09/15/19 18:46 Dose: 63 mls/hr Documented by: Potassium Phosphate 15 mmol/ (Sodium Chloride) 255 mls @ 63.75 mls/hr IV Q4H [facility] Stop: 09/16/19 11:59 Last Admin: 09/16/19 10:53 Dose: 63.75 mls/hr Documented by: Metoprolol Tartrate (Lopressor Inj) 5 mg IVP Q6H PRN PRN Reason: Tachycardia Ondansetron HCl (Zofran Inj) 4 mg IVP Q6HR PRN PRN Reason: Nausea / Vomiting Last Admin: 09/11/19 10:36 Dose: 4 mg Documented by: Pantoprazole Sodium (Protonix) 40 mg IVP QDAC [facility] Last Admin: 09/16/19 06:24 Dose: 40 mg Documented by: Sodium Chloride (Normal Saline Flush 0.9%) 10 ml IVP PRN PRN PRN Reason: NEEDED PER PROVIDER ORDERS Last Admin: 09/13/19 05:38 Dose: 10 ml Documented by: Sodium Chloride (Normal Saline Flush 0.9%) 10 ml IVP 0100,0900,1700 [facility] Last Admin: 09/16/19 08:28 Dose: 10 ml Documented by: Ibuprofen/Diphenhydramine Cit [Eql Ibuprofen Pm Caplet] 1 tab PO QPM 05/01/19 Objective - Vital Signs/Intake & Output Vital Signs: Vital Signs x48h Temp Pulse Resp BP Pulse Ox 09/16/19 05:00 37.1 C 82 36 H 154/75 H 94 09/16/19 00:17 36.9 C 86 26 H 143/75 H 95 Intake & Output: Intake & Output 09/13/19 09/14/19 09/15/19 09/16/19 23:59 23:59 23:59 23:59 Intake Total 2989.583 2779.834 2106.25 350 Output Total 540 925 410 400 Balance 2449.583 0224.596 9736.25 -50 - Objective General Appearance: positive: Moderate distress, Lethargic, Other (She is lethargic but doing more alert each day. She is able to speak a few words today) Eyes Bilateral: positive: Normal inspection, Conjunctivae nml ENT: positive: Dry mucous membranes. negative: No signs of dehydration Respiratory: positive: Other (Her breath sounds are diminished bilaterally. She is tachypneic this morning. No obvious rales or rhonchi noted.) Cardiovascular: positive: Irregularly irregular. negative: Tachycardia, Bradycardia, Systolic murmur Abdomen: positive: Other (She remains tender throughout her abdomen. Bowel sounds are noted and today they are not hypoactive.). negative: Guarding, Rebound Skin: positive: Warm, Dry Extremities: positive: No pedal edema Neurologic/Psychiatric: positive: Other (She is able to move all 4 extremities but she is quite weak overall.) - Lab Results Fish Bones: 09/16/19 05:17 09/16/19 05:17 Other Labs: Lab Results x24hrs 09/16/19 09/16/19 09/15/19 Range/Units 05:17 05:17 15:20 WBC 24.0 H (4.8-10.8) x10^3/uL RBC 3.64 L (4.20-5.40) 10^6/uL Hgb 10.5 L (12.0-16.0) g/dL Hct 33.1 L (37.0-47.0) % MCV 90.9 (81.0-99.0) fL MCH 28.8 (27.0-31.0) pg MCHC 31.7 L (32.0-36.0) g/dL RDW 14.8 (12.0-15.0) % Plt Count 221 (130-450) 10^3/uL MPV 11.9 H (7.9-10.8) fL Neut # (Auto) 20.4 H (1.5-6.6) 10^3/uL Lymph # (Auto) 1.5 (1.5-3.5) 10^3/uL [place] # (Auto) 1.5 H (0.0-1.0) 10^3/uL Eos # (Auto) 0.1 (0.0-0.7) 10^3/uL Baso # (Auto) 0.1 (0.0-0.1) 10^3/uL Absolute Nucleated RBC 0.00 x10^3/uL Nucleated RBC % 0.0 /100WBC Sodium 143 144 (135-145) mmol/L Potassium 3.5 3.3 L (3.5-5.0) mmol/L Chloride 115 H 117 H (101-111) mmol/L Carbon Dioxide 21 20 L (21-32) mmol/L Anion Gap 7.0 7.0 (6-13) BUN 59 H 59 H (6-20) mg/dL Creatinine 1.2 H 1.4 H (0.4-1.0) mg/dL Estimated GFR (MDRD) 42 L 35 L (>89) Glucose 147 H 104 H (70-100) mg/dL Calcium 9.6 9.6 (8.5-10.3) mg/dL Phosphorus 1.6 L (2.5-4.6) mg/dL Magnesium 2.0 1.9 (1.7-2.8) mg/dL Total Bilirubin 1.4 H (0.2-1.0) mg/dL AST 18 (10-42) IU/L ALT 13 (10-60) IU/L Alkaline Phosphatase 57 (42-121) IU/L Total Protein 5.3 L (6.7-8.2) g/dL Albumin 2.5 L (3.2-5.5) g/dL Globulin 2.8 (2.1-4.2) g/dL Albumin/Globulin Ratio 0.9 L (1.0-2.2) Prealbumin 5 L (18-45) mg/dL Triglycerides 130 ( - 149) mg/dL ABX Reporting Has patient been on IV antibiotics over the past 48 hours?: Yes Sepsis Event Note (H) - Evaluation Current Stage of Sepsis: Severe sepsis Possible source of Sepsis: positive: Genitourinary - Sepsis Criteria Sepsis Criteria: Recorded Respiratory Rate greater than 20, WBC count greater than 10% bands, WBC count greater than 12,000 or less than 4000, LOGGING EQUIPMENT OPERATOR: altered consciousness (unrelated to primary neuro pathology), Renal: urine output less than 0.5ml/kg/hr for 2 hours or creatinine gr Assessment/Plan - Problem List (1) Severe sepsis Impression: She is febrile again this morning and her white count remains persistently elevated. After discussion with the patient and her stepdaughter, Marla who is the POA, a decision has been made to pursue comfort measures. The patient has clearly stated in the past and once again today reiterates that she does not want any procedures or interventions. Marla states that the patient has made it clear in the past that if she would become so ill she would want to focus on her comfort and that her current condition would not be acceptable to her. We will discontinue and IV antibiotics and fluids. We will transition her Dilaudid to morphine 2 mg every 30 minutes as needed for pain or dyspnea. Lorazepam IV as needed. (2) Need for comfort care Impression: As mentioned above, the patient is now comfort measures only. We will treat her pain and dyspnea with morphine IV as needed. Will use Lorazepam IV as needed. She is already quite dry and I do not think she would benefit from scopolamine. Family is at bedside. (3) Encephalopathy Impression: She is a little more alert this morning and able to nod and speak a few words. She has stated that she does not want any interventions and focusing on comfort is her priority. Her POA also agrees and she will be made comfort measures only. (4) Partial small bowel obstruction Impression: She is now comfort measures. We will discontinue IV fluids and keep her on morphine IV as needed.. (5) UTI (urinary tract infection) Impression: We will discontinue IV antibiotics given she is now comfort care. Qualifiers: Urinary tract infection type: acute pyelonephritis Qualified Code(s): N10 - Acute pyelonephritis (6) Acute kidney injury Impression: We will discontinue IV fluids and we will not check labs given she is comfort care. (7) Chronic atrial fibrillation Impression: She is now comfort measures and we will discontinue telemetry. (8) Moderate malnutrition Impression: She is now comfort care and so we will discontinue PPN.
[2019-09-16] MEDS ORDERED: POTASSIUM PHOSPHATE 15 MMOL in SODIUM CHLORIDE 0.9% 250 ML IV SCH (08:00)
[2019-09-16] MEDS: HYDROmorphone 0.5 MG/0.5 ML SYRINGE IVP PRN (08:27)
[2019-09-16] MEDS: CEFEPIME 1 GM in SODIUM CHLORIDE 0.9% MINIBAG 100 ML IV SCH (08:28)
[2019-09-16] MEDS: HEPARIN 5,000 UNIT/ML VIAL SUBQ SCH (10:52)
--- NOTE | 2019-09-16 11:36 | XRAY Report ---
PROCEDURE: Chest 1 View X-Ray INDICATIONS: Hypoxia. Dyspnea. Fever. TECHNIQUE: One view of the chest was acquired. COMPARISON: Chest x-ray one view, 04/30/2019 FINDINGS: Surgical changes and devices: None. Lungs and pleura: Chronic bilateral interstitial infiltrates. Possible superimposed left basilar cons olidation. Possible small pleural effusions. No pleural effusions or pneumothorax. Mediastinum: Mediastinal contours appear normal. Heart size is normal. Bones and chest wall: No suspicious bony lesions. Overlying soft tissues appear unremarkable. IMPRESSION: Chronic bilateral interstitial and airspace infiltrates likely secondary to chronic interstitial lung disease. There may be superimposed left basilar pneumonia. Possible small pleural effusions. Reviewed by: Andrzej Summers MD on 09/16/2019 11:35 AM PDT Approved by: Andrzej Summers MD on 09/16/2019 11:35 AM PDT Station ID: [id number]
[2019-09-16] MEDS ORDERED: LORazepam 2 MG/ML VIAL IVP PRN (12:01)
[2019-09-16] MEDS ORDERED: HYALURONIDASE HUMAN RECOMB 150 UNIT/ML VIAL SUBQ ONE (12:44)
[2019-09-16] MEDS: MORPHINE 2 MG/ML CARPUJECT IVP PRN ×5 (13:25→22:50)
[2019-09-16 15:50] VITALS: BP 145/68
[2019-09-16] MEDS: SODIUM CHLORIDE FLUSH 0.9% 10 ML SYRINGE IVP PRN ×2 (20:49→22:50)
[2019-09-17] MEDS: SODIUM CHLORIDE FLUSH 0.9% 10 ML SYRINGE IVP SCH ×3 (02:16→16:02)
[2019-09-17] MEDS: MORPHINE 2 MG/ML CARPUJECT IVP PRN ×6 (02:16→16:02)
--- NOTE | 2019-09-17 08:23 | PROVIDER PROGRESS NOTE ---
Subjective - Prog Note Date Prog Note Date: 09/17/19 - Subjective Subjective: Patient was made comfort measures only yesterday. She is currently receiving morphine. She does open up her eyes when I speak to her but she is unable to tell me how she feels. She does smile at times. She is a little tachypneic but otherwise appears comfortable. Current Medications - Current Medications Current Medications: Active Medications Lorazepam (Ativan Inj (Vial)) 1 mg IVP Q6H PRN PRN Reason: Anxiety Last Admin: 09/17/19 11:15 Dose: 1 mg Documented by: Morphine Sulfate (Morphine (Carpuject)) 2 mg IVP Q30M PRN PRN Reason: NEEDED PER PROVIDER ORDERS Last Admin: 09/17/19 09:58 Dose: 2 mg Documented by: Sodium Chloride (Normal Saline Flush 0.9%) 10 ml IVP PRN PRN PRN Reason: NEEDED PER PROVIDER ORDERS Last Admin: 09/16/19 22:50 Dose: 10 ml Documented by: Sodium Chloride (Normal Saline Flush 0.9%) 10 ml IVP 0100,0900,1700 [facility] Last Admin: 09/17/19 10:02 Dose: 10 ml Documented by: Ibuprofen/Diphenhydramine Cit [Eql Ibuprofen Pm Caplet] 1 tab PO QPM 05/01/19 Objective - Vital Signs/Intake & Output Reviewed Vital Signs: Yes Intake & Output: Intake & Output 09/14/19 09/15/19 09/16/19 09/17/19 23:59 23:59 23:59 23:59 Intake Total 2779.834 2106.25 1822 Output Total 925 410 675 Balance 7669.970 7338.25 1147 - Objective General Appearance: positive: No acute distress, Lethargic Eyes Bilateral: positive: Normal inspection ENT: positive: Dry mucous membranes Respiratory: positive: Other (She is tachypneic but does not appear to be in distress.) - Lab Results Fish Bones: 09/16/19 05:17 09/16/19 05:17 Sepsis Event Note (H) - Evaluation Current Stage of Sepsis: Severe sepsis Possible source of Sepsis: positive: Genitourinary - Sepsis Criteria Sepsis Criteria: Recorded Respiratory Rate greater than 20, WBC count greater than 10% bands, WBC count greater than 12,000 or less than 4000, QUAD STAYER: altered consciousness (unrelated to primary neuro pathology), Renal: urine output less than 0.5ml/kg/hr for 2 hours or creatinine gr Assessment/Plan - Problem List (1) Need for comfort care Impression: She is now comfort measures only. She does appear to be imminently dying and I am concerned that her symptoms will not be able to be managed at home. We will continue the morphine IV and lorazepam as needed. (5) UTI (urinary tract infection) Qualifiers: Urinary tract infection type: acute pyelonephritis Qualified Code(s): N10 - Acute pyelonephritis
--- NOTE | 2019-09-17 16:23 | Discharge Plan ---
Discharge Plan Problem Reviewed?: Yes Disposition: 20 No Smoking: If you smoke, Please STOP! Call for help. Follow-up with: Leobardo Paige MD [Primary Care Provider] -
--- NOTE | 2019-09-17 16:25 | DISCHARGE SUMMARY ---
Discharge Summary Admit Date: 09/11/19 Discharge Date: 09/17/19 Discharging Provider: Jack Uribe Primary Care Provider: Leobardo Paige Code Status: Do Not Attempt Resuscitation Discharge Disposition: 20 - DIAGNOSES Admission Diagnoses: Bowel obstruction Preop evaluation UTI Cholelithiasis Chronic atrial fibrillation Dementia Acute worsening of stage III chronic kidney disease Discharge Diagnoses with Status of Each Condition: Severe sepsis Need for comfort care Encephalopathy Partial small bowel obstruction Urinary tract infection Acute kidney injury Chronic atrial fibrillation Moderate malnutrition - HPI History of Present Illness: H&P per Dr. Tripp: I am meeting this patient after she has been transferred from the emergency room to [facility]. I am the hospitalist taking care of her with previous emergency room doctor and hospitalist writing orders for her. I find her to be alert, oriented to place. But a difficult historian and that she is very fixated on getting up to walk to go to the toilet but clearly very weak, and unable to even get out of bed. She is very angry. She states that she has no history of abdominal pain. She denies any chronic constipation or diarrhea. Her main problem is recurrent urinary tract infections.Previous abdominal surgery includes a hysterectomy. Pain is described as a generalized severe cramping. Diffuse. It comes in waves. She keeps on feeling like she has to go to the bathroom but nothing will come out. She denies fever, chills. Cannot remember the last time she ate. She cannot remember her last bowel movement. I met her in April 2019. At that point in time she was admitted for pyelonephritis with metabolic encephalopathy. She lives alone, and her has been since 2004. At that time she was found down with that admission. She did have elevated troponins. After being treated for E. coli UTI for her pyelonephritis, she was discharged to [facility] for rehab. She then saw her primary care provider June 06, 2019. At that point in time she was indignant that she could not drive and wanted a form filled out to allow her to drive. She is still not allowed to drive. She canceled her July 2019 appointment and has not been seen by any provider. She is occasionally helped by her neighbor Christina who is a home health nurse. Christina's phone number is [phone]. She also has a stepdaughter named Marla who is at [phone]. In the emergency room the patient is afebrile at 36.6. She is mildly bradycardic at 47. Blood pressure is 160/79 and she is 16% on room air. She is a tiny elderly female, appears dehydrated, has a soft, nondistended abdomen. Moderate diffuse tenderness throughout. No mention of bowel sounds. Her white cell count is 10.1 thousand. Urinalysis has squamous cells with large amount of leukocyte Estrace. CT of the abdomen has small bowel dilation, possible chol ecystitis, possible left pyelonephritis. She is now admitted to the hospital for treatment of these problems. General surgery has been consulted. - CONSULTS | PROCEDURES Consultations: General Surgery, Nutrition - HOSPITAL COURSE Hospital Course: The patient was admitted to the floor for severe sepsis secondary to urinary tract infection as well as a partial small bowel obstruction. Shortly after admission, she became encephalopathic and had decreased responsiveness. She was initially treated with cefepime IV given her sepsis and concern for urinary tract infection. Her renal function the following day had increased to 1.9 from 1.1. This was felt to be likely contrast induced nephropathy and prerenal injur y given her sepsis. She was continued on IV fluids and her creatinine plateaued at 2.4 and then continue to improve during the hospitalization. General surgery evaluated her for partial small bowel obstruction and was felt that this was more likely ileus and not obstruction. The patient's urine culture grew E. coli which was pansensitive. Her blood cultures were negative although these were dr carrasquillo after she had already received IV antibiotics. Despite continued IV antibiotics, her white count continued to increase and she remained febrile. A repeat CT of the abdomen pelvis without contrast showed mild right hydronephrosis without nephrolithiasis. There was retained contrast of the kidn ey from prior imaging. These findings were discussed with the family as was felt the patient may potentially need a nephrostomy tube. The patient's POA and stepdaughter, Marla, stated that the patient did not want any surgical interventions in the past but she asked us to speak with urology at [facility] to see what they would recommend. The images were reviewed by urology and they felt that it was reasonable to consider a nephrostomy tube. I discussed this with the POA who wanted to continue with medical management for the time being and to see how the patient would improve over next 24 to 48 hours. Despite continued IV antibiotics, the patient had a persistent leukocytosis. She also continued to spike fevers. Her mental status did improve but she was still quite lethargic and was unable to communicate. After further discussion with the family, they felt that she would not want any surgical intervention and declined transfer to higher level of care. They considered comfort measures but want to give her another 24 hours to see how she would improve. Despite improvement in her renal function, her white count still remained persistently elevated. She was a little more alert each day but still quite lethargic and very deconditioned. She was started on PPN for nutrition. We were able to discuss with the patient and family regarding goals of care. I asked the patient if she wanted any surgical intervention and she shakes her head "no." I asked if she want to focus on her comfort and she nodded "yes." Marla the patient's POA and stepdaughter had been at bedside after driving from [place] and she felt that comfort measures would be what the patient would want based off of what she knew in the past. The patient's IV fluids and antibiotics were discontinued and she was continued on just morphine and Ativan IV as needed. The patient on September 16 at 16:15. I called the patient's stepdaughter, Marla, and she was notified. - ALLERGIES Allergies/Adverse Reactions: Allergies Allergy/AdvReac Type Severity Reaction Status Date / Time No Known Drug Allergies Allergy Verified 09/11/19 00:20 - MEDICATIONS Home Medications: Ambulatory Orders Medication Instructions Recorded Confirmed Ibuprofen/Diphenhydramine Cit [Eql 1 tab PO QPM 05/01/19 09/11/19 Ibuprofen Pm Caplet] - PHYSICAL EXAM AT DISCHARGE Eyes Bilateral: positive: Other (Pupils dilated and fixed.) Respiratory: positive: Other (No respirations.) Cardiovascular: positive: Other (Absent heart sounds.) Peripheral Pulses: positive: 0 Skin: positive: Pallor - LABS Result Diagrams: 09/16/19 05:17 09/16/19 05:17 - SEPSIS Current Stage of Sepsis: Severe sepsis Possible source of Sepsis: Genitourinary Sepsis Criteria: Recorded Respiratory Rate greater than 20, WBC count greater than 10% bands, WBC count greater than 12,000 or less than 4000, CONTENT DIRECTOR: altered consciousness (unrelated to primary neuro pathology), Renal: urine output less than 0.5ml/kg/hr for 2 hours or creatinine gr
== END 2019-09-17 16:15 | disposition expired | DRG 388 ==
LOC: EDBD → EDUNIT# → ED 00:09 → MS2 06:28
PROVIDERS: ADMIT Internal Medicine; ATTEND Internal Medicine
DX: K56.601 Complete intestinal obstruction, unspecified as to cause (principal); N30.00 Acute cystitis without hematuria; I10 Essential (primary) hypertension; I48.91 Unspecified atrial fibrillation; R01.1 Cardiac murmur, unspecified; A41.51 Sepsis due to Escherichia coli [E. coli]; G93.41 Metabolic encephalopathy; Z79.899 Other long term (current) drug therapy; R65.20 Severe sepsis without septic shock; N10 Acute pyelonephritis; N17.9 Acute kidney failure, unspecified; I48.20 Chronic atrial fibrillation, unspecified; E44.0 Moderate protein-calorie malnutrition; Z68.1 Body mass index [BMI] 19.9 or less, adult; G30.9 Alzheimer's disease, unspecified; F02.80 Dementia in other diseases classified elsewhere, unspecified severity, without behavioral disturbance, psychotic disturbance, mood disturbance, and anxiety; I12.9 Hypertensive chronic kidney disease with stage 1 through stage 4 chronic kidney disease, or unspecified chronic kidney disease; N18.3 Chronic kidney disease, stage 3 (moderate); E86.0 Dehydration; G47.00 Insomnia, unspecified; R32 Unspecified urinary incontinence; M81.0 Age-related osteoporosis without current pathological fracture; M41.9 Scoliosis, unspecified; G89.29 Other chronic pain; M54.9 Dorsalgia, unspecified; M48.061 Spinal stenosis, lumbar region without neurogenic claudication; J84.10 Pulmonary fibrosis, unspecified; I27.20 Pulmonary hypertension, unspecified; K80.20 Calculus of gallbladder without cholecystitis without obstruction; K57.30 Diverticulosis of large intestine without perforation or abscess without bleeding; Z66 Do not resuscitate; Z51.5 Encounter for palliative care; Z79.1 Long term (current) use of non-steroidal anti-inflammatories (NSAID); Z91.81 History of falling; Z90.710 Acquired absence of both cervix and uterus; Z87.442 Personal history of urinary calculi; Z87.440 Personal history of urinary (tract) infections
CPT/HCPCS: 36415; 36600; 70450; 71045; 74018; 74176; 74177; 76705; 80048; 80053; 81001; 82140; 82803; 83605; 83690; 83735; 83970; 84100; 84134; 84300; 84478; 84484; 85025; 87040; 87086; 87181; 93005; 93306; 96361; 96365; 96366; 96368; 96375; 99285; J0131; J1170; J2060; J3490; J7120; Q9967; 81003